=== PATIENT | female | born 1985 | race Caucasian/White ===

== ENCOUNTER 2019-08-10 16:43 | Emergency (ER) | payer BC, SELFPAY ==
--- NOTE | ~2019-08-10 | XR_ITS ---
EXAMINATION: XR shoulder RT min 2V EXAM DATE: 08/10/2019 17:25 INDICATION: Initial encounter following injury, with pain of the right shoulder. Injured 2 weeks ago, persistent pain. TECHNIQUE: The following right shoulder projections obtained: frontal projection with internal rotati on, frontal projection with external rotation, Grashey, and scapular Y view (4+ views). There is no prior study for comparison. FINDINGS: No evidence of right shoulder rotator cuff calcific tendinosis. Unremarkable right glenoh umeral and acromioclavicular joints. There are no acute fractures or dislocations identified. There is no subcutaneous gas. The soft tissue is unremarkable. There are no radiopaque foreign bodies. IMPRESSION: 1. Unremarkable XR shoulder RT min 2V exam. Reviewed, dictated and finalized at location A.
[2019-08-10 16:52] VITALS: BP 142/76; PULSE 75; RESP 14; O2SAT 99
--- NOTE | 2019-08-10 17:01 | ED.UPPEXIN ---
HPI - Extremity Injury (Upper) General Chief Complaint: Extremity Injury, Upper Stated Complaint: right shoulder History of Present Illness HPI narrative: Two and a half weeks ago patient hit her shoulder on a counter when she was bending down and she heard a pop. Patient states the pain is better but her shoulder continues to hurt and she wanted to make sure that she does not have a fracture. Related Data Home Medications Medication Instructions Recorded Confirmed omeprazole 20 mg PO DAILY PRN 08/10/19 08/10/19 Allergies Allergy/AdvReac Type Severity Reaction Status Date / Time No Known Allergies Allergy Verified 08/10/19 17:02 Review of Systems Review of Systems: Narrative: CONSTITUTIONAL: Denies fever, chills, or sweats. EYES: Denies visual changes, redness, or discharge. ENT: Denies rhinorrhea, congestion, sore throat, or otalgia. CARDIOVASCULAR:Denies chest pain, palpitations, or edema. RESPIRATORY: Denies cough or dyspnea. GASTROINTESTINAL: Denies abdominal pain, nausea, vomiting, or diarrhea. GENITOURINARY: Denies dysuria or hematuria. SKIN:[Denies rash or itching. MUSCULOSKELETAL:Denies back pain, joint pain, or myalgia. right shoulder pain NEUROLOGIC: Denies headache, numbness, or weakness. PSYCHIATRIC:Denies anxiety or depression PMFSH Comments At time as signature, I have reviewed and agree with nursing past medical, social, surgical and family history. Please see nursing chart for further information. There is no relevant family history pertinent to the presenting complaint. Exam Narrative: Exam Narrative: GENERAL:Well-appearing, well-nourished, and in no acute distress. HEAD:Normocephalic, atraumatic. EYES: PERRLA and EOMI. ENT: Nares clear, no rhinorrhea or epistaxis. Mucous membranes moist. NECK: Supple. CHEST: Clear to auscultation. No respiratory distress. HEART: Regular rate and rhythm. No murmur heard. Normal peripheral pulses. ABDOMEN: Soft, nontender, nondistended, normal active bowel sounds. EXTREMITIES: decrease range of motion due to pain. No edema. SKIN: Warm, dry, no rash. NEURO: No focal deficits. Alert and oriented x3. Course Course Emergency Course: Patient is aware of diagnosis, understands and agrees to treatment plan. Anticipatory guidance given. Patient agrees to follow-up as directed and is aware of reasons to seek care at the emergency department. Vital Signs Vital signs: Vital Signs Pulse Rate 75 08/10/19 16:52 Respiratory Rate 14 08/10/19 16:52 Blood Pressure 142/76 H 08/10/19 16:52 Pulse Oximetry 99 08/10/19 16:52 Pulse Rate 75 08/10/19 16:52 Respiratory Rate 14 08/10/19 16:52 Blood Pressure 142/76 H 08/10/19 16:52 Pulse Oximetry 99 08/10/19 16:52 MDM - Extremity Injury (Upper) Differential Diagnosis Differential diagnosis: Likely sprain and strain of wrist, fracture of wrist, fracture of hand, dislocation of shoulder and fracture of humerus Discharge Plan Discharge Clinical Impression: Muscle spasm of right shoulder Patient Disposition: Home, Self-Care Condition: Stable Instructions: Antibiotic Form, Muscle Spasm (ED), Shoulder Pain (ED) Additional Instructions: avoid weight bearing until the pain subsides. Ice to the area 20-30 minutes 4-6 times a day Elevate above heart Elastic wrap or orthopedic splint as directed for comfort for the next 5-7 days Tylenol for lesser pain Ibuprofen regularly for the next 2-3 days for the inflammation Follow up with your primary care provider if the condition is not improving within 1 week or sooner if the condition worsens with numbness, tingling, decrease sensation with weakness to seek ER. Prescriptions: New cyclobenzaprine 10 mg tablet 10 mg PO TID PRN (Reason: muscle spasm) Qty: 20 RF: 0 ibuprofen 800 mg tablet 800 mg PO TID PRN (Reason: pain) Qty: 20 RF: 0 No Action omeprazole 20 mg Tablet,Delayed Release (Dr/Ec) 20 mg PO DAILY PRN (Reason: A
== END 2019-08-10 17:47 | disposition home or self-care (01) ==
PROVIDERS: Emergency Provider Nurse Practitioner Family
DX: M62.838 Other muscle spasm (principal)
CPT/HCPCS: 73030; 99213; G0463

== ENCOUNTER 2020-06-08 14:58 | Emergency (ER) | payer OTHER, SELFPAY ==
--- NOTE | ~2020-06-08 | US_ITS ---
EXAMINATION: US OB <=14 wk fetus w TV EXAM DATE: 06/08/2020 16:22 INDICATION: , pelvic pain. Clinical concern for ectopic . TECHNIQUE: Pelvic transabdominal and transvaginal sonogram was performed. There are multiple graysca le and Doppler images available for interpretation. There is no prior study for comparison. FINDINGS: The uterus measures 8.7 x 4.8 x 5.6 cm. There is an intrauterine gestation sac identified, with a small yolk sac. Age by mean sac diameter is 5 weeks 0 days. Cannot identify a pole, patty ot confirm viability at this point. Right adnexa: The ovary measures 2.7 x 1.9 x 2.0 cm and is morphologically normal. Ovarian vascular f low confirmed. Left adnexa: The ovary measures 3.7 x 2.4 x 2.1 cm and is morphologically normal. Ovarian vascular fl ow confirmed. IMPRESSION: 1. Small intrauterine gestation sac. Cannot confirm viability at this time, consider 2 week follow-u p exam. 2. No extrauterine identified. Reviewed, dictated and finalized at location A. ONATOR IMPRESSION: 1. Small intrauterine gestation sac. Cannot confirm viability at this time, co nsider 2 week follow-up exam. 2. No extrauterine identified.
[2020-06-08 15:00] VITALS: BP 127/64; PULSE 100; RESP 18; TEMP 36.5; O2SAT 100
--- NOTE | 2020-06-08 15:20 | ED.GENADULT ---
HPI - General Adult General Chief complaint: Unspecified Stated complaint: wants test Time Seen by Provider: 06/08/20 15:05 Source: patient Mode of arrival: ambulatory Limitations: no limitations History of Present Illness HPI narrative: This is a 34 year old, about 4.5 weeks by LMP that presents to the ER for pelvic cramping since last night. Reports she had a positive test 4 days. Reports last night she noted some right sided pelvic cramping that has been intermittent since. Reports she is unsure when her last period was as she has abnormal periods. They recently moved to the area, so she does not have a OB yet. Denies fever, vomiting, vaginal bleeding, or dysuria. Related Data Home Medications Medication Instructions Recorded Confirmed No Home Medications 06/08/20 06/08/20 Allergies Allergy/AdvReac Type Severity Reaction Status Date / Time No Known Allergies Allergy Verified 06/08/20 15:12 Review of Systems Review of Systems: Narrative: CONSTITUTIONAL: Denies fever GASTROINTESTINAL: Reports pelvic pain. Denies nausea, vomiting GENITOURINARY: Denies dysuria All systems reviewed & are unremarkable except as noted in HPI and below PMFSH Surgical History Surgical History (Updated 06/08/20 @ 15:28 by Alisha Ontiveros PA-C) History of exploratory laparotomy Social History Social History (Updated 06/08/20 @ 15:28 by Alisha Ontiveros PA-C) Smoking status: Former smoker Exam Narrative: Exam Narrative: GENERAL: Well-appearing, well-nourished, and in no acute distress. HEAD: Normocephalic, atraumatic. EYES: EOMI. CHEST: Clear to auscultation. No respiratory distress. No wheezes rales or rhonchi HEART: Regular rate and rhythm. No murmur heard. Normal peripheral pulses. ABDOMEN: Soft, nontender, nondistended, normal active bowel sounds. EXTREMITIES: Normal range of motion. No edema. SKIN: Warm, dry, no rash. NEURO: No focal deficits. Alert and oriented x3. PSYCH: Normal mood and affect PELVIC: Normal external genitalia. Normal-appearing cervix, closed Course Consultations Consultation #1: Spoke with Dr. Thomas about patient and workup who will follow up in clinic. Date: 06/08/20 Time: 18:11 Vital Signs Vital signs: Vital Signs Temperature 97.7 F 06/08/20 15:00 Pulse Rate 100 06/08/20 15:00 Respiratory Rate 18 06/08/20 15:00 Blood Pressure 127/64 06/08/20 15:00 Pulse Oximetry 100 06/08/20 15:00 Temperature 97.7 F 06/08/20 15:00 Pulse Rate 100 06/08/20 15:00 Respiratory Rate 18 06/08/20 15:00 Blood Pressure 127/64 06/08/20 15:00 Pulse Oximetry 100 06/08/20 15:00 Medical Decision Making MDM Narrative Medical decision making narrative: Patient presents the emergency department after a positive test with right sided pelvic cramping, intermittent since last night. She is afebrile and nontoxic-appearing. CBC is with leukocytosis to 24.2. 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 Reports she thinks her white blood cell count is usually around 19. Denies any infectious symptoms and is afebrile in the ED. Metabolic panel and lipase without concerning findings. UA without evidence of infection. Obstetrics ultrasound shows a small uterine gestational sac. No pole is detected at this point. Possibly due to early . No extrauterine . Ovaries appear normal with normal vascular flow. Patient is O+. Spoke with Dr. Thomas about patient and workup who will follow up in clinic. Patient is stable and felt appropriate for further outpatient evaluation. She was given warnings to return to the ER Vital Signs Vital Signs: Vital Signs Temperature 97.7 F 06/08/20 15:00 Pulse Rate 100 06/08/20 15:00 Respiratory Rate 18 06/08/20 15:00 Blood Pressure 127/64 06/08/20 15:00 Pulse Oximetry 100 06/08/20 15:00 Temperature 97.7 F 06/08/20 15:00 Pulse Rate 100 06/08/20 15:00 R
[2020-06-08 15:43] LABS: Basophils Absolute Auto 0.1 K/mm3 (0.0-0.1); Basophils Percent Auto 0.5 % (0.2-1.2); Eosinophils Absolute Auto 0.3 K/mm3 (0-0.3); Eosinophils Percent Auto 1.1 % (0-4.4); Hematocrit 42.8 % (37.0-47.0); Hemoglobin 13.6 g/dL (12.0-15.0); Immature Granulocyte Absolute 0.12 K/mm3 (0.00-0.031); Immature Granulocyte Percent A 0.5 % (0-0.5); Lymphocytes Absolute Auto 6.75 K/mm3 (0.9-3.2); Mean Corpuscular HGB Conc 31.8 g/dl (32-36); Mean Corpuscular Hemoglobin 25.5 pg (26-34); Mean Corpuscular Volume 80.1 fl (80-100); Mean Platelet Volume 9.4 fl (7.4-10.4); Monocytes Absolute Auto 2.3 K/mm3 (0.1-0.6); Monocytes Percent Auto 9.5 % (2.6-8.5); Neutrophils Absolute Auto 14.6 K/mm3 (1.3-6.7); Neutrophils Percent Auto 60.4 % (45.5-73.1); Platelet Count Result 680 k/mm3 (150-375); Red Blood Count 5.34 M/mm3 (4.2-5.4); Red Cell Distribution Width 17.7 % (11.5-14.5); White Blood Count 24.2 K/mm3 (4.5-10.0)
[2020-06-08 15:53] LABS: Atypical Lymphocytes Present; Platelet Estimate Increased (Adequate); Target Cells 1+ (NORMAL)
[2020-06-08 16:53] LABS: Alanine Aminotransferase 19 U/L (4-35); Albumin Level 4.2 g/dL (3.5-5.1); Alkaline Phosphatase 84 U/L (38-126); Anion Gap 8 mmol/L (8-16); Aspartate Amino Transferase 28 U/L (14-36); Bilirubin,Total 0.2 mg/dL (0.2-1.3); Blood Urea Nitrogen 10 mg/dL (7-17); Calcium 8.9 mg/dL (8.4-10.2); Carbon Dioxide 27 mmol/L (22-30); Chloride 106 mmol/L (98-107); Estimated CRCL calculation 105 ml/min; Estimated Glomerular Filt Rate > 60; Glucose 81 mg/dL (65-105); Lipase 67 U/L (23-300); Potassium 3.4 mmol/L (3.4-5.0); Sodium 141 mmol/L (137-145)
[2020-06-08 16:57] LABS: Add Urine Microscopic? YES; Amorphous Sediment Urine Few; Appearance Urine Cloudy (Clear); Bacteria Urine Trace /hpf; Bilirubin Urine Negative (Negative); Blood Urine 1+ (Negative); Color Urine Yellow (Yellow); Glucose Urine UA Negative (Negative); Ketones Urine Negative (Negative); Leukocyte Esterase Ur Negative LEU/UL (Negative); Mucus Urine Few /lpf; Nitrate Urine Negative (Negative); Protein Urine 1+ mg/dL (Negative); Specific Grav Ur 1.019 (1.001-1.035); Squamous Epithelial Cell Urine Many /hpf (Few); WBC Urine 0-3 /hpf
== END 2020-06-08 18:21 | disposition home or self-care (01) ==
PROVIDERS: Physician Assistant; Emergency Provider Emergency Medicine
DX: O26.891 Other specified pregnancy related conditions, first trimester (principal); R10.2 Pelvic and perineal pain; Z87.891 Personal history of nicotine dependence; Z3A.01 Less than 8 weeks gestation of pregnancy
CPT/HCPCS: 36415; 76801; 76817; 80053; 81001; 81025; 83690; 84702; 85025; 85461; 99284

== ENCOUNTER 2020-06-21 15:27 | Outpatient (CLI) | payer OTHER, SELFPAY ==
[2020-06-21 15:55] LABS: Basophils Absolute Auto 0.1 K/mm3 (0.0-0.1); Basophils Percent Auto 0.4 % (0.2-1.2); Eosinophils Absolute Auto 0.3 K/mm3 (0-0.3); Eosinophils Percent Auto 1.1 % (0-4.4); Hematocrit 41.5 % (37.0-47.0); Hemoglobin 13.8 g/dL (12.0-15.0); Immature Granulocyte Percent A 0.4 % (0-0.5); Lymphocytes Absolute Auto 6.39 K/mm3 (0.9-3.2); Lymphocytes Percent Auto 26.6 % (18.3-44.2); Mean Corpuscular HGB Conc 33.3 g/dl (32-36); Mean Corpuscular Hemoglobin 26.5 pg (26-34); Mean Corpuscular Volume 79.8 fl (80-100); Mean Platelet Volume 9.6 fl (7.4-10.4); Monocytes Absolute Auto 1.8 K/mm3 (0.1-0.6); Monocytes Percent Auto 7.6 % (2.6-8.5); Neutrophils Absolute Auto 15.4 K/mm3 (1.3-6.7); Neutrophils Percent Auto 63.9 % (45.5-73.1); Platelet Count Result 630 k/mm3 (150-375); Red Cell Distribution Width 17.5 % (11.5-14.5); White Blood Count 24.1 K/mm3 (4.5-10.0)
[2020-06-21 16:43] LABS: HIV 1/2 Ab P24 Ag Result Negative (Negative)
[2020-06-21 17:06] LABS: Hepatitis B Surface Antigen Negative (Negative)
[2020-06-21 17:22] LABS: Hepatitis C Virus Antibody Reactive (Negative)
[2020-06-23 09:06] LABS: Rapid Plasma Reagin Non-Reactive (NonReactive)
[2020-06-24 17:11] LABS: Hepatitis C RNA, Quant PCR <15 IU/mL
== END 2020-06-21 15:28 | disposition home or self-care (01) ==
LOC: ANHLAB 15:28
PROVIDERS: Visit Provider Obstetrics & Gynecology
DX: Z34.90 Encounter for supervision of normal pregnancy, unspecified, unspecified trimester (principal); Z3A.00 Weeks of gestation of pregnancy not specified
CPT/HCPCS: 36415; 85025; 86592; 86703; 86762; 86803; 86850; 86900; 86901; 87340; 87522; G0432

== ENCOUNTER 2020-06-27 16:05 | Outpatient (CLI) | payer OTHER, SELFPAY ==
--- NOTE | ~2020-06-27 | US_ITS ---
EXAMINATION: US OB <= 14 weeks fetus DATE: 06/27/2020 16:38 INDICATION: Evaluate viability TECHNIQUE: Real-time transabdominal obstetric ultrasound. FINDINGS: Comparison to ultrasound dated 06/08/2020 The uterus measures 8.5 x 5.5 x 5.7 cm. There is an intrauterine gestational sac, with pole lola ntified. The crown rump length measures 1.32 cm. heart tones are identified measuring 165 bpm. Ovaries are not visualized. No free fluid in the pelvis. IMPRESSION: 1. SL IUP with an EGA of 7 weeks, 5 days (EDC by initial ultrasound of 02/08/2021). Reviewed, dictated and finalized at location A. NCE ANALYST IMPRESSION: 1. SL IUP with an EGA of 7 weeks, 5 days (EDC by initial ultrasound of 02/09/20 21).
== END 2020-06-27 16:06 | disposition home or self-care (01) ==
PROVIDERS: Visit Provider Obstetrics & Gynecology
DX: O36.80X0 Pregnancy with inconclusive fetal viability, not applicable or unspecified (principal); Z3A.01 Less than 8 weeks gestation of pregnancy
CPT/HCPCS: 76801

== ENCOUNTER 2020-07-12 09:09 | Observation (INO) | payer OTHER, SELFPAY ==
[2020-07-12] VITALS (23 sets, daily range): BP systolic 113–158; BP diastolic 62–119; PULSE 62–78; RESP 16–20; TEMP 36.2–36.9; O2SAT 98–100; BMI 33.0
--- NOTE | ~2020-07-12 | US_ITS ---
US renal BI 07/12/2020 10:28 Procedure: Realtime transabdominal ultrasound of the kidneys and bladder. Indication: Abdominal pain and Comparison: No prior studies for comparison. Findings: Renal echotexture is normal bilaterally without hydronephrosis, contour deforming mass. The re are bilateral renal stones. There is mild left hydronephrosis. The right kidney measures 12.3 cm a nd left kidney measures 9.9 cm. Bladder within normal limits. Impression: 1: Bilateral nephrolithiasis. 2: Mild right hydronephrosis. Reviewed, dictated and finalized at location B. Impression: 1: Bilateral nephrolithiasis. 2: Mild right hydronephrosis.
--- NOTE | ~2020-07-12 | US_ITS ---
EXAMINATION: US OB <= 14 weeks fetus DATE: 07/12/2020 10:28 INDICATION: Pelvic pain. Left flank pain. First trimester . TECHNIQUE: Real-time pelvic ultrasound utilizing both a transvaginal and transabdominal probe was pe rformed. The interpreting radiologist was not present for the study. COMPARISON: 11/27/2020 FINDINGS: The uterus measures 11.4 x 7.4 x 7.3 cm. There is an intrauterine gestational sac. A yolk sac and [place] pole are identified. The crown rump length measures 3.2 cm, which is concordant within 2 days of provided estimated gestational age of 9 weeks and 6 days and within 5 days of the estimated gestation al age of 9 weeks and 3 days based upon earliest crown-rump length measurement based on ultrasound pe rformed on 06/27/2020. heart motion is identified measuring 165 beats per minute (bpm) by M-mode Doppler. The right ovary measures 2.8 x 1.4 x 1.6 cm. The left ovary measures 2.8 x 2.4 x 2.2 cm. 1.9 cm anech oic cyst in the left ovary. Vascular flow seen at both ovaries on color Doppler. There is no free flu id in the pelvis. IMPRESSION: 1. Single living fetus with heart rate of 165 bpm. 2. [place]-rump length of 3.2 cm which is concordant with both the provided estimated gestational age a s well as estimated gestational age based upon clear crown-rump length measurement performed on 2020. Please correlate with clinical information or earlier ultrasounds for most accurate FRANCOISE. . Reviewed, dictated and finalized at location A. IMPRESSION: 1. Single living fetus with heart rate of 165 bpm. 2. [place]-rump length of 3.2 cm which is concordant with both the provided estim ated gestational age as well as estimated gestational age based upon clear [place]-rump length measurement performed on 06/27/2020. Please correlate with clinica l information or earlier ultrasounds for most accurate FRANCOISE. .
--- NOTE | ~2020-07-12 | US_ITS ---
EXAMINATION: US renal BI DATE: 07/13/2020 08:02 INDICATION: Left hydronephrosis TECHNIQUE: Multiple grayscale and Doppler ultrasound images of the kidneys were obtained. COMPARISON: 07/12/2020 FINDINGS: The right kidney measures 13.1 x 4.3 x 5.2 cm. The left kidney measures 10.2 x 5.2 x 4.4 cm . The kidneys demonstrate normal parenchymal echogenicity. Nonobstructing stones are present in both kidneys. There is very mild left hydronephrosis without change. The bladder is normal. IMPRESSION: 1. Mild left hydronephrosis without change. 2. Bilateral nephrolithiasis. Reviewed, dictated and finalized at location A.
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
[2020-07-12 09:35] LABS: Basophils Absolute Auto 0.1 K/mm3 (0.0-0.1); Basophils Percent Auto 0.3 % (0.2-1.2); Eosinophils Absolute Auto 0.3 K/mm3 (0-0.3); Eosinophils Percent Auto 1.2 % (0-4.4); Hematocrit 42.2 % (37.0-47.0); Hemoglobin 13.9 g/dL (12.0-15.0); Immature Granulocyte Absolute 0.12 K/mm3 (0.00-0.031); Immature Granulocyte Percent A 0.5 % (0-0.5); Lymphocytes Absolute Auto 4.95 K/mm3 (0.9-3.2); Lymphocytes Percent Auto 20.2 % (18.3-44.2); Mean Corpuscular HGB Conc 32.9 g/dl (32-36); Mean Corpuscular Hemoglobin 26.1 pg (26-34); Mean Corpuscular Volume 79.2 fl (80-100); Mean Platelet Volume 9.4 fl (7.4-10.4); Monocytes Absolute Auto 1.7 K/mm3 (0.1-0.6); Monocytes Percent Auto 6.9 % (2.6-8.5); Neutrophils Absolute Auto 17.3 K/mm3 (1.3-6.7); Neutrophils Percent Auto 70.9 % (45.5-73.1); Platelet Count Result 605 k/mm3 (150-375); Red Blood Count 5.33 M/mm3 (4.2-5.4); Red Cell Distribution Width 18.2 % (11.5-14.5); White Blood Count 24.5 K/mm3 (4.5-10.0)
[2020-07-12] MEDS: SODIUM CHLORIDE 0.9% IV 1,000 ML 999 ML IV CONT (09:36)
[2020-07-12 09:48] LABS: Alanine Aminotransferase 19 U/L (4-35); Albumin Level 3.9 g/dL (3.5-5.1); Alkaline Phosphatase 98 U/L (38-126); Anion Gap 6 mmol/L (8-16); Aspartate Amino Transferase 24 U/L (14-36); Bilirubin,Total 0.2 mg/dL (0.2-1.3); Blood Urea Nitrogen 8 mg/dL (7-17); Calcium 8.8 mg/dL (8.4-10.2); Carbon Dioxide 28 mmol/L (22-30); Chloride 104 mmol/L (98-107); Estimated CRCL calculation 135 ml/min; Estimated Glomerular Filt Rate > 60; Glucose 96 mg/dL (65-105); Lipase 62 U/L (23-300); Potassium 3.8 mmol/L (3.4-5.0); Sodium 138 mmol/L (137-145)
[2020-07-12 09:56] LABS: Add Urine Microscopic? YES; Appearance Urine Cloudy (Clear); Bacteria Urine Trace /hpf; Bilirubin Urine Negative (Negative); Blood Urine 2+ (Negative); Color Urine Yellow (Yellow); Glucose Urine UA Negative (Negative); Ketones Urine Negative (Negative); Leukocyte Esterase Ur Trace LEU/UL (Negative); Mucus Urine Rare /lpf; Nitrate Urine Negative (Negative); Protein Urine 2+ mg/dL (Negative); RBC Urine >75 /hpf (0-2); Specific Grav Ur 1.015 (1.001-1.035); Squamous Epithelial Cell Urine Many /hpf (Few); Urobilinogen Urine Negative mg/dL (<2.0)
[2020-07-12 11:14] LABS: Lactic Acid Reflex 0.8 mmol/L (0.7-2.1)
[2020-07-12] MEDS: MORPHINE SULFATE (*CRX) 2 MG/ML INJ IV PUSH (11:49)
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
--- NOTE | 2020-07-12 13:14 | PC.NURSE ---
One set of blood cultures obtained, Dr. Ornelas updated and is agreeable to one set of blood cultures.
--- NOTE | 2020-07-12 14:05 | PC.NURSE ---
This patient, Claudia Ackerman, was admitted to [facility] Surg Room 319-01. Patient/family oriented to hospital policies and general routines including ID bracelet, bed and alarms, visiting hours, pain management, procedures, bathroom and other care routines, personal items, smoking policy, room service/diet, and visiting hours. Information on how to activate the Rapid Response Team has been discussed. Patient/Family are encouraged to report perceived risks to care and to ask questions if they do not understand what they are told or what they should do. PT ADMITTED AT 1245
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
[2020-07-12] MEDS: SODIUM CHLORIDE 0.9% IV 1,000 ML 150 ML IV CONT ×2 (15:46→22:45)
[2020-07-12] MEDS: MORPHINE SULFATE (*CRX) 4 MG/ML INJ 2 MG IV PUSH (19:51)
[2020-07-13] MEDS: MORPHINE SULFATE (*CRX) 4 MG/ML INJ 2 MG IV PUSH ×3 (00:06→12:05)
[2020-07-13 05:24] VITALS: BP 125/60; PULSE 62; RESP 20; TEMP 36.7; O2SAT 100
[2020-07-13] MEDS: SODIUM CHLORIDE 0.9% IV 1,000 ML 150 ML IV CONT (05:46)
[2020-07-13 06:14] LABS: Basophils Absolute Auto 0.1 K/mm3 (0.0-0.1); Basophils Percent Auto 0.3 % (0.2-1.2); Eosinophils Absolute Auto 0.4 K/mm3 (0-0.3); Hematocrit 39.1 % (37.0-47.0); Hemoglobin 12.8 g/dL (12.0-15.0); Immature Granulocyte Absolute 0.08 K/mm3 (0.00-0.031); Immature Granulocyte Percent A 0.4 % (0-0.5); Lymphocytes Absolute Auto 5.49 K/mm3 (0.9-3.2); Mean Corpuscular HGB Conc 32.7 g/dl (32-36); Mean Corpuscular Hemoglobin 25.8 pg (26-34); Mean Corpuscular Volume 78.7 fl (80-100); Mean Platelet Volume 9.4 fl (7.4-10.4); Monocytes Absolute Auto 1.6 K/mm3 (0.1-0.6); Neutrophils Percent Auto 61.3 % (45.5-73.1); Platelet Count Result 557 k/mm3 (150-375); Red Blood Count 4.97 M/mm3 (4.2-5.4); Red Cell Distribution Width 17.7 % (11.5-14.5); White Blood Count 19.6 K/mm3 (4.5-10.0)
[2020-07-13 06:39] LABS: Anion Gap 4 mmol/L (8-16); Blood Urea Nitrogen 6 mg/dL (7-17); Calcium 8.1 mg/dL (8.4-10.2); Carbon Dioxide 22 mmol/L (22-30); Chloride 111 mmol/L (98-107); Estimated CRCL calculation 159 ml/min; Estimated Glomerular Filt Rate > 60; Glucose 96 mg/dL (65-105); Potassium 3.8 mmol/L (3.4-5.0); Sodium 137 mmol/L (137-145)
[2020-07-13 08:00] VITALS: PULSE 62; RESP 20; O2SAT 99
[2020-07-13 09:31] VITALS: PULSE 62; O2SAT 99
--- NOTE | 2020-07-13 10:51 | WPDUROPN2 ---
Progress Note: A&P Assessment and Plan (1) Hydronephrosis, left: Code(s): N13.30 - Unspecified hydronephrosis Status: Acute Assessment and Plan: No significant ongoing flank/abdominal pain. Repeat renal u/s this morning: suggests no significant left ureteral obstruction - scant left hydronephrosis persists - bilateral uretal jets noted - normal/symmetrical resitive indices All above, not definitive, but llooks encouraging. Discussed with pt. at [facility]. Currently, would not recommend any intervention (ie. ureteroscopy/stent placement). I'm comfortable with observation as outpatient if she continues to feel well. Subjective Subjective Date/Time Seen: 07/13/20 10:51 Mild left flank pain until 0200 this morning - better now. Currently with slight, atypical right flank pain. Review of Systems Cardiovascular: Cardiovascular: Denies chest pain, Denies lightheadedness, Denies palpitations and Denies dyspnea Respiratory: Respiratory: Denies dyspnea Gastrointestinal: Gastrointestinal: Denies diarrhea, Denies nausea and Denies vomiting Genitourinary: Genitourinary: Denies hematuria and Denies dysuria Endocrine: Endocrine: Denies palpitations Exam Const: General: no acute distress Resp: Effort & Inspection: normal respiratory effort GI: Inspection: non-distended GI Palp: No abdominal tenderness and No Guarding due to palpation present (GI) Auscultation: normal bowel sounds Objective Data Vital Signs Vital Signs: Vital Signs - 24 hr 07/12/20 10:52 07/12/20 10:53 07/12/20 11:00 Temperature Pulse Rate Respiratory Rate Blood Pressure 127/85 Pulse Oximetry 100 100 100 07/12/20 11:01 07/12/20 11:15 07/12/20 11:21 Temperature Pulse Rate Respiratory Rate Blood Pressure 124/65 158/119 H Pulse Oximetry 100 100 100 07/12/20 11:22 07/12/20 11:48 07/12/20 11:50 Temperature Pulse Rate Respiratory Rate Blood Pressure 128/76 Pulse Oximetry 100 100 100 07/12/20 12:00 07/12/20 12:01 07/12/20 12:15 Temperature Pulse Rate Respiratory Rate Blood Pressure 121/74 Pulse Oximetry 100 100 100 07/12/20 12:30 07/12/20 12:31 07/12/20 12:45 Temperature Pulse Rate Respiratory Rate Blood Pressure 135/68 Pulse Oximetry 100 100 100 07/12/20 12:46 07/12/20 13:00 07/12/20 13:01 Temperature Pulse Rate Respiratory Rate Blood Pressure 131/80 132/71 Pulse Oximetry 100 100 100 07/12/20 13:37 07/12/20 14:00 07/12/20 20:00 Temperature 98.4 F Pulse Rate 78 71 62 Respiratory Rate 16 16 20 Blood Pressure 113/69 Pulse Oximetry 100 100 100 07/12/20 21:30 07/13/20 05:24 07/13/20 08:00 Temperature 97.2 F L 98.1 F Pulse Rate 62 62 62 Respiratory Rate 20 20 20 Blood Pressure 116/62 125/60 Pulse Oximetry 100 100 99 07/13/20 09:31 Temperature Pulse Rate 62 Respiratory Rate Blood Pressure Pulse Oximetry 99 Intake/Output Intake/Output: Intake & Output 07/10/20 07/11/20 07/12/20 07/13/20 23:59 23:59 23:59 23:59 Intake Total 2840 2350 Output Total 600 1800 Balance 2240 550 Meds/Results Medications: Active Medications Generic Name Dose Route Start Last Admin Trade Name Freq PRN Reason Stop Dose Admin Ceftriaxone Sodium/Dextrose 1 gm in 50 mls @ 100 mls/hr 07/13/20 09:00 07/13/20 08:17 Rocephin 1 Gm/D5w 50 Ml IVPB 100 mls/hr Q24H VERNA Administration Acetaminophen 1,000 mg in 100 mls @ 400 mls/hr 07/12/20 11:28 07/13/20 06:00 Ofirmev 1,000 Mg Ivpb IVPB 07/13/20 11:29 Infused Q6H PRN Infusion Mild Pain (1-3) or Fever Sodium Chloride 1,000 mls @ 150 mls/hr 07/12/20 11:30 07/13/20 05:46 Normal Saline Iv IV CONT 150 mls/hr .Q6H40M VERNA Administration Morphine Sulfate 2 mg 07/12/20 11:28 07/13/20 08:16 Morphine Sulfate (*Crx) 4 Mg/Ml Inj IV PUSH 2 mg Q2H PRN Administration Pain Rated 7-10 Ondansetron HCl 4 mg 07/12/20 15:17
--- NOTE | 2020-07-13 11:38 | PM.OBPNVD ---
OB - PN: Subj Subjective Date/time seen: 07/13/20 11:38 She is feeling well in general. She had one episode of severe left flan pain wrapping around to LLQ early this am. Morphine did help. She is tolerating regular diet. Occasional nausea. No emesis. No urinary complaints or vaginal bleeding. No fever OB - PN: Obj Data Labs CBC & Chem 7: 07/13/20 06:02 07/13/20 06:02 Labs: Laboratory Results - last 24 hr 07/13/20 07/13/20 06:02 06:02 WBC 19.6 H RBC 4.97 Hgb 12.8 Hct 39.1 MCV 78.7 L MCH 25.8 L MCHC 32.7 RDW 17.7 H Plt Count 557 H MPV 9.4 Immature Gran % (Auto) 0.4 Neut % (Auto) 61.3 Lymph % (Auto) 28.0 [place] % (Auto) 8.0 Eos % (Auto) 2.0 Baso % (Auto) 0.3 Lymph # (Auto) 5.49 H [place] # (Auto) 1.6 H Eos # (Auto) 0.4 H Baso # (Auto) 0.1 Abs Immat Gran (auto) 0.08 H Absolute Neuts (auto) 12.0 H Absolute Nucleated RBC 0.0 Nucleated RBC % 0.0 Sodium 137 Potassium 3.8 Chloride 111 H Carbon Dioxide 22 Anion Gap 4 L BUN 6 L Creatinine 0.50 L Estim Creat Clear Calc 159 Estimated GFR > 60 Glucose 96 Calcium 8.1 L Imaging Radiologist's impression: Impressions Renal Ultrasound 07/13/20 10:21 IMPRESSION: 1. Mild left hydronephrosis without change. 2. Bilateral nephrolithiasis. OB - PN A/P Assessment and Plan (1) Left nephrolithiasis: Code(s): N20.0 - Calculus of kidney Status: Acute Assessment and Plan: Continue hydration (po at home), pain and nausea control prn. No urgent procedures needed per urology. Discharge home and keep follow up as scheduled with me for OB care 07/22 (2) Hydronephrosis, left: Code(s): N13.30 - Unspecified hydronephrosis Status: Acute Assessment and Plan: No change since yesterday, mild on left side (3) UTI (urinary tract infection): Code(s): N39.0 - Urinary tract infection, site not specified Status: Acute Assessment and Plan: Urine culture result not available yet, so discharge home with po cephalexin. Will change abx if needed once urine culture available (4) : Code(s): Z34.90 - Encounter for supervision of normal , unspecified, unspecified trimester Status: Acute Assessment and Plan: Viable intrauterine . Continue routine care Time Spent With Patient Time: Total time spent is greater than 50% in coordination of care (as documented) at patient's floor/unit and/or counseling patient: Review of Systems Review of Systems: All systems reviewed & are unremarkable except as noted in HPI and below Exam Const: General: no acute distress, alert and awake Resp: Auscultation: clear to auscultation bilaterally Cardio: Rate: regular rate Rhythm: regular rhythm GI: Inspection: non-distended GI Palp: Yes Soft to palpation, Yes Tenderness to palpation present (GI) (mild LLQ), No Guarding due to palpation present (GI) and No Rebound tenderness present : General: Yes CVA tenderness on the left Extrem: General: no pedal edema and no calf tenderness Psych: Mental Status: mental status grossly normal
--- NOTE | 2020-07-13 11:44 | PM.DS ---
DS: Admitting Diagnosis Admitting Diagnosis Admitting Diagnosis: Nephrolithiasis and hydronephrosis in 1st trimester DS: Summary Hospital Course Hospital Course: 35-year-old G1 at approximately 9 weeks gestation came in through the emergency room on July 12 with complaint of left flank pain wrapping around to her left lower quadrant. She had ultrasound and lab work done in the emergency room. She was admitted for 23 hour observation on July 12 for bilateral nephrolithiasis left hydronephrosis and urinary tract infection. She did have a Ob ultrasound showing a viable intrauterine . She was admitted for pain control, antibiotics, and observation. She had her renal ultrasound repeated on July 13 which still showed bilateral nephrolithiasis and mild left hydronephrosis with no change since July 12. She only had 1 episode of severe pain during hospitalization. Morphine did control that pain. She has occasional nausea but no emesis. So she does feel comfortable with going home for p.o. hydration p.o. medications for control of pain and nausea if needed, and continued oral antibiotics. Her urine culture result is not available yet. Once her urine culture result is available, her antibiotics will be changed if needed based on that result. She does have an appointment on July 22 for normal obstetric care. She was advised to keep that appointment as scheduled. She is also aware to call or return to the emergency room for severe pain, persistent nausea and vomiting, or any other concerns. She did have urology consultation while in hospital. Urologist says she does not need any urgent intervention due to nephrolithiasis. Time Spent with Patient Time attestation: Total time spent providing and/or coordinating discharge services: DS: Data Data Completed and Pending Labs on day of discharge: Labs from last 24 hours 07/13/20 07/13/20 06:02 06:02 WBC 19.6 H RBC 4.97 Hgb 12.8 Hct 39.1 MCV 78.7 L MCH 25.8 L MCHC 32.7 RDW 17.7 H Plt Count 557 H MPV 9.4 Immature Gran % (Auto) 0.4 Neut % (Auto) 61.3 Lymph % (Auto) 28.0 [place] % (Auto) 8.0 Eos % (Auto) 2.0 Baso % (Auto) 0.3 Lymph # (Auto) 5.49 H [place] # (Auto) 1.6 H Eos # (Auto) 0.4 H Baso # (Auto) 0.1 Abs Immat Gran (auto) 0.08 H Absolute Neuts (auto) 12.0 H Absolute Nucleated RBC 0.0 Nucleated RBC % 0.0 Sodium 137 Potassium 3.8 Chloride 111 H Carbon Dioxide 22 Anion Gap 4 L BUN 6 L Creatinine 0.50 L Estim Creat Clear Calc 159 Estimated GFR > 60 Glucose 96 Calcium 8.1 L Preliminary micro results at discharge 07/12/20 10:52 Blood Culture - Preliminary Blood Discharge Plan Discharge Attending physician on discharge: Karla Perez Consulting providers: José Miguel Maldonado Discharging Clinician: Karla Perez Patient Disposition: Home, Self-Care Activity: as tolerated Diet: as tolerated Patient Instructions: Antibiotic Form, Pain Management (GEN) Stand Alone Forms: General Discharge Information Follow-up/Referrals: Karla Perez MD [Physician] - 2 Weeks Discharge Medications: New hydrocodone-acetaminophen 5-325 mg tablet 1 tablet PO Q4H PRN (Reason: pain) Qty: 30 RF: 0 cephalexin 500 mg capsule 500 mg PO Q8H Qty: 21 RF: 0 ondansetron 4 mg tablet,disintegrating 4 mg PO Q6H PRN (Reason: nausea and vomiting) Qty: 30 RF: 0 Continued DHA 200 mg capsule 200 mg PO BID RF: 0 Date of admission: 07/12/20 11:28 Primary Care Provider: PHYSICIAN,WEIGHT ENGINEER Admitting Provider: Karla Perez Attending physician on admission: Karla Perez Condition: Stable
== END 2020-07-13 13:45 | disposition home or self-care (01) ==
LOC: ANHED 11:35 → ANH3MEDSUR 11:40
PROVIDERS: Admitting Provider Obstetrics & Gynecology; Emergency Provider Emergency Medicine; PCP Physician Assistant; Visit Provider Obstetrics & Gynecology
DX: O26.831 Pregnancy related renal disease, first trimester (principal); N39.0 Urinary tract infection, site not specified; N13.39 Other hydronephrosis; N20.0 Calculus of kidney; N28.89 Other specified disorders of kidney and ureter; R10.32 Left lower quadrant pain; Z87.891 Personal history of nicotine dependence; Z3A.09 9 weeks gestation of pregnancy
CPT/HCPCS: 36415; 76775; 76801; 80048; 80053; 81001; 83605; 83690; 85025; 87040; 87086; 87088; 96361; 96365; 96367; 96374; 96375; 96376; 99285; G0378; J0131; J0696; J2270; J7030

== ENCOUNTER 2020-09-17 15:23 | Outpatient (CLI) | payer BC, SELFPAY ==
--- NOTE | ~2020-09-17 | US_ITS ---
EXAMINATION: US OB /maternal detail EXAM DATE: 09/17/2020 16:18 INDICATION: anatomy. 2nd trimester. TECHNIQUE: Pelvic obstetrical transabdominal sonogram was performed by a technologist. There are mu ltiple grayscale and Doppler images available for interpretation. Comparison is made to prior examina tion from 07/12/2020. FINDINGS: There is a single fetus identified in vertex presentation with a heart rate of 147 beats pe r minute. The placenta is located in the fundal position. There is no sonographic evidence of retrop lacental hemorrhage identified. BIOMETRIC DATA: Biparietal diameter (BPD): 4.7 cm ----------------> 20 weeks 2 days. Head circumference (HC): 17.0 cm ----------------> 19 weeks 4 days. Abdominal circumference (AC): 13.8 cm ----------> 19 weeks 2 days. Femur length (FL): 3.0 cm --------------------------> 19 weeks 2 days. These measurements are concordant. HC/AC ratio is 1.23 (The 5th -- 95th percentile range is 1.08-1.26. Estimated weight is 288 g +/- 43 g. This is the 33rd percentile when the currently reported cl inical gestation age 19 weeks 4 days, clinical estimated date of delivery (FRANCOISE-OPE) 02/07 is used. [place] estimated gestational age based on measurements from this exam is also 19 weeks 4 days, with an e stimated date of delivery (FRANCOISE-AUA) 02/07. ANATOMIC SURVEY: The following anatomy is identified and is sonographically normal in appearance: Cerebral ventricles Cerebellum Cisterna magna Nuchal fold CTL-spine Four-chamber heart Diaphragm Stomach Kidneys Bladder Three-vessel cord Cord insertion IMPRESSION: 1. Single fetus in vertex presentation with heart rate 147 beats per minute. 2. Estimated weight of 288 grams, 33rd percentile using the currently reported clinical gestat ion age of 19 weeks 4 days, FRANCOISE(OPE) 02/07. 3. Normal anatomic survey. Reviewed, dictated and finalized at location B. IMPRESSION: 1. Single fetus in vertex presentation with heart rate 147 beats per minute. 2. Estimated weight of 288 grams, 33rd percentile using the currently re ported clinical gestation age of 19 weeks 4 days, FRANCOISE(OPE) 02/07. 3. Normal anatomic survey.
== END 2020-09-17 15:24 | disposition home or self-care (01) ==
PROVIDERS: PCP Obstetrics & Gynecology; Visit Provider Obstetrics & Gynecology
DX: Z36.3 Encounter for antenatal screening for malformations (principal); Z3A.00 Weeks of gestation of pregnancy not specified
CPT/HCPCS: 76805

== ENCOUNTER 2020-11-11 11:09 | Outpatient (CLI) | payer BC, SELFPAY ==
[2020-11-11 12:40] LABS: Hematocrit 35.6 % (37.0-47.0); Hemoglobin 11.6 g/dL (12.0-15.0); Mean Corpuscular HGB Conc 32.6 g/dl (32-36); Mean Corpuscular Volume 82.8 fl (80-100); Mean Platelet Volume 10.3 fl (7.4-10.4); Platelet Count Result 597 k/mm3 (150-375); Red Cell Distribution Width 15.9 % (11.5-14.5)
[2020-11-11 12:47] LABS: Glucose 1 Hour PP 50gm Dose 104 mg/dL
[2020-11-11 13:26] LABS: Band Neutrophils Percent 6 % (0-6); Eosinophils Absolute Manual 0.87 K/mm3 (0.02-0.5); Eosinophils Percent Manual 3 % (0-4); Monocytes Absolute Manual 0.29 K/mm3 (0.1-0.90); Monocytes Percent Manual 1 % (3-9); Neutrophils Absolute Manual 22.04 K/mm3 (1.7-7.2); Neutrophils Percent Manual 70 % (46-73); Total Cells Counted 100
[2020-11-11 13:27] LABS: Anisocytosis 1+ (NORMAL); Large Platelets Present; Platelet Estimate Increased (Adequate)
[2020-11-11 13:28] LABS: Atypical Lymphocytes Present
[2020-11-14 15:19] LABS: HIV 1 2 Ag Ab 4th Gen w Rflxs Non-reactive (Non-reactive)
== END 2020-11-11 11:10 | disposition home or self-care (01) ==
PROVIDERS: PCP Obstetrics & Gynecology; Visit Provider Obstetrics & Gynecology
DX: Z34.90 Encounter for supervision of normal pregnancy, unspecified, unspecified trimester (principal); Z3A.00 Weeks of gestation of pregnancy not specified
CPT/HCPCS: 36415; 82947; 85025; 87389

== ENCOUNTER 2020-12-31 22:10 | Observation (INO) | payer BC, SELFPAY ==
[2020-12-31 23:03] VITALS: BMI 36.9
--- NOTE | 2020-12-31 23:04 | LDADM ---
This patient, Claudia Ackerman, was admitted to [facility] on 12/31/20 at 22:10. Plans for labor, pain management and were discussed with patient. Patient/family oriented to hospital policies and general routines including ID bracelet, bed and alarms, visiting hours, pain management, procedures, bathroom and other care routines, personal items, smoking policy, room service/diet and guest tray routines, infant security routines, and visiting hours. Patient/Family are encouraged to report perceived risks to care and to ask questions if they do not understand what they are told or what they should do. See OBIX for further documentation.
--- NOTE | 2021-01-24 11:17 | PM.OBTRLD ---
OB - Triage/Final Diagnosis Visit Information Comments/Additional reasons for admission: I have assessed the risk for this patient, Claudia Ackerman, and determined that she would benefit from observation care. Final Diagnosis (1) Upper abdominal mass: Code(s): R19.09 - Other intra-abdominal and pelvic swelling, mass and lump Status: Acute
== END 2020-12-31 23:25 | disposition other institution (70) ==
PROVIDERS: Admitting Provider Student in an Organized Health Care Education/Training Program; Visit Provider Student in an Organized Health Care Education/Training Program
DX: O26.899 Other specified pregnancy related conditions, unspecified trimester (principal); R19.09 Other intra-abdominal and pelvic swelling, mass and lump; Z3A.00 Weeks of gestation of pregnancy not specified
CPT/HCPCS: G0378; G0379

== ENCOUNTER 2020-12-31 23:30 | Emergency (ER) | payer BC, SELFPAY ==
[2020-12-31 23:38] VITALS: BP 143/70; PULSE 84; RESP 18; TEMP 36.8; O2SAT 100
[2021-01-01 00:03] LABS: Basophils Absolute Auto 0.1 K/mm3 (0.0-0.1); Basophils Percent Auto 0.3 % (0.2-1.2); Eosinophils Absolute Auto 0.3 K/mm3 (0-0.3); Hematocrit 32.2 % (37.0-47.0); Hemoglobin 10.2 g/dL (12.0-15.0); Immature Granulocyte Absolute 0.14 K/mm3 (0.00-0.031); Immature Granulocyte Percent A 0.6 % (0-0.5); Lymphocytes Absolute Auto 6.05 K/mm3 (0.9-3.2); Mean Corpuscular HGB Conc 31.7 g/dl (32-36); Mean Corpuscular Hemoglobin 25.2 pg (26-34); Mean Corpuscular Volume 79.5 fl (80-100); Mean Platelet Volume 10.6 fl (7.4-10.4); Monocytes Percent Auto 8.1 % (2.6-8.5); Neutrophils Absolute Auto 15.8 K/mm3 (1.3-6.7); Nucleated Red Blood Cells Perc 0.2 % (0.0-0.2); Platelet Count Result 555 k/mm3 (150-375); Red Blood Count 4.05 M/mm3 (4.2-5.4); Red Cell Distribution Width 14.9 % (11.5-14.5); White Blood Count 24.2 K/mm3 (4.5-10.0)
[2021-01-01 00:12] LABS: Alanine Aminotransferase 22 U/L (4-35); Albumin Level 3.4 g/dL (3.5-5.1); Alkaline Phosphatase 219 U/L (38-126); Anion Gap 9 mmol/L (8-16); Aspartate Amino Transferase 25 U/L (14-36); Bilirubin,Total 0.2 mg/dL (0.2-1.3); Blood Urea Nitrogen 8 mg/dL (7-17); Calcium 8.5 mg/dL (8.4-10.2); Carbon Dioxide 20 mmol/L (22-30); Chloride 109 mmol/L (98-107); Estimated CRCL calculation 169 ml/min; Estimated Glomerular Filt Rate > 60; Glucose 103 mg/dL (65-110); Lipase 103 U/L (23-300); Potassium 3.6 mmol/L (3.4-5.0); Sodium 138 mmol/L (137-145)
[2021-01-01 00:13] LABS: Add Urine Microscopic? YES; Appearance Urine Clear (Clear); Bacteria Urine Trace /hpf; Bilirubin Urine Negative (Negative); Blood Urine 1+ (Negative); Color Urine Straw (Yellow); Glucose Urine UA Negative (Negative); Ketones Urine Negative (Negative); Leukocyte Esterase Ur Negative LEU/UL (Negative); Nitrate Urine Negative (Negative); Protein Urine Negative (Negative); Specific Grav Ur 1.006 (1.001-1.035); Squamous Epithelial Cell Urine Few /hpf (Few); Urobilinogen Urine Negative mg/dL (<2.0); WBC Urine 0-3 /hpf
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
[2021-01-01 01:27] VITALS: BP 133/72; PULSE 88; RESP 15; O2SAT 98
[2021-01-01 01:56] LABS: Lactic Acid Reflex 0.7 mmol/L (0.7-2.1)
[2021-01-01 02:35] VITALS: BP 140/90; PULSE 80; RESP 17; O2SAT 99
== END 2021-01-01 02:37 | disposition home or self-care (01) ==
PROVIDERS: Emergency Medicine; Emergency Provider Emergency Medicine
DX: O26.893 Other specified pregnancy related conditions, third trimester (principal); R19.00 Intra-abdominal and pelvic swelling, mass and lump, unspecified site; Z3A.35 35 weeks gestation of pregnancy; Z87.891 Personal history of nicotine dependence
CPT/HCPCS: 36415; 80053; 81001; 83605; 83690; 85025; 87040; 99283; G0378; G0379

== ENCOUNTER 2021-01-19 18:00 | Inpatient (IN) | payer BC, SELFPAY ==
[2021-01-19] VITALS (11 sets, daily range): BP systolic 127–151; BP diastolic 74–91; PULSE 72–85; TEMP 36.6–37.5; BMI 38.3
--- NOTE | 2021-01-19 18:31 | LDADM ---
This patient, Claudia Ackerman, was admitted to Labor/Delivery/Recovery 107 on 01/19/21 at 18:00. Plans for labor, pain management and were discussed with patient. Patient/family oriented to hospital policies and general routines including ID bracelet, bed and alarms, visiting hours, pain management, procedures, bathroom and other care routines, personal items, smoking policy, room service/diet and guest tray routines, security routines, and visiting hours. Patient/Family are encouraged to report perceived risks to care and to ask questions if they do not understand what they are told or what they should do. See OBIX for further documentation.
[2021-01-19 19:19] LABS: Basophils Absolute Auto 0.1 K/mm3 (0.0-0.1); Basophils Percent Auto 0.3 % (0.2-1.2); Eosinophils Absolute Auto 0.1 K/mm3 (0-0.3); Eosinophils Percent Auto 0.6 % (0-4.4); Hematocrit 31.9 % (37.0-47.0); Immature Granulocyte Absolute 0.13 K/mm3 (0.00-0.031); Immature Granulocyte Percent A 0.6 % (0-0.5); Lymphocytes Absolute Auto 5.16 K/mm3 (0.9-3.2); Lymphocytes Percent Auto 23.4 % (18.3-44.2); Mean Corpuscular HGB Conc 31.3 g/dl (32-36); Mean Corpuscular Hemoglobin 23.8 pg (26-34); Mean Platelet Volume 10.7 fl (7.4-10.4); Monocytes Absolute Auto 1.5 K/mm3 (0.1-0.6); Monocytes Percent Auto 6.9 % (2.6-8.5); Neutrophils Absolute Auto 15.1 K/mm3 (1.3-6.7); Neutrophils Percent Auto 68.2 % (45.5-73.1); Nucleated Red Blood Cells Absolute Auto 0.1 K/mm3 (0.0-0.012); Nucleated Red Blood Cells Perc 0.3 % (0.0-0.2); Platelet Count Result 569 k/mm3 (150-375); Red Cell Distribution Width 15.5 % (11.5-14.5); White Blood Count 22.1 K/mm3 (4.5-10.0)
[2021-01-19 19:37] LABS: Alanine Aminotransferase 19 U/L (4-35); Albumin Level 3.7 g/dL (3.5-5.1); Alkaline Phosphatase 267 U/L (38-126); Anion Gap 7 mmol/L (8-16); Aspartate Amino Transferase 25 U/L (14-36); Bilirubin,Total 0.3 mg/dL (0.2-1.3); Blood Urea Nitrogen 9 mg/dL (7-17); Calcium 9.3 mg/dL (8.4-10.2); Carbon Dioxide 21 mmol/L (22-30); Chloride 109 mmol/L (98-107); Estimated CRCL calculation 146 ml/min; Estimated Glomerular Filt Rate > 60; Glucose 78 mg/dL (65-110); Potassium 3.5 mmol/L (3.4-5.0); Sodium 137 mmol/L (137-145); Uric Acid 6.8 mg/dL (2.5-7.5)
[2021-01-19] MEDS: LACTATED RINGERS 1,000 ML 125 ML IV CONT (19:39)
[2021-01-19] MEDS: OXYTOCIN 30 UNITS/NS 500 ML 30 UNITS/500 ML BAG 6 UNITS IV CONT (19:40)
[2021-01-19 19:48] LABS: Platelet Estimate Increased (Adequate)
[2021-01-19 19:49] LABS: Target Cells 1+ (NORMAL)
[2021-01-19 19:50] LABS: Atypical Lymphocytes Present
[2021-01-19] MEDS: fentaNYL CITRATE INJ (*CRX) 100 MCG/2 ML VIAL 50 MCG IV PUSH (22:51)
[2021-01-20] VITALS (203 sets, daily range): BP systolic 68–161; BP diastolic 42–141; PULSE 58–131; RESP 16; TEMP 36.5–37.1; O2SAT 81–100
[2021-01-20] MEDS: fentaNYL CITRATE INJ (*CRX) 100 MCG/2 ML VIAL 50 MCG IV PUSH (00:49)
[2021-01-20] MEDS: fentaNYL CITRATE INJ (*CRX) 100 MCG/2 ML VIAL IV PUSH ×4 (02:26→08:10)
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
[2021-01-20] MEDS: LACTATED RINGERS 1,000 ML 125 ML IV CONT (08:11)
--- NOTE | 2021-01-20 08:14 | WPDOBADMIT ---
Obstetrics - Admit Note Admission Note: record reviewed. No pertinent additions to the history and/or any subsequent changes in the physical findings that are not consistent with the expected course of the were found. Additions to the history and/or subsequent changes in the physical findings follow. Cervix 4/50/-2. AROM with clear fluid. IUPC placed easily. GBS negative. Continue pitocin. FHT category II
--- NOTE | 2021-01-20 09:21 | WPDANESEPPF ---
Anes - Initial Pre Proc Eval Date/Time: 01/20/21 09:21 Surgeon: Karla Perez MD Pre Op Diagnosis: Induction of Labor Patient Data Age: 35 Gender: F Height: 1.7 m Weight: 111 kg Last Vital Signs Temp 36.9 C 01/20/21 05:30 Pulse 90 01/20/21 09:16 BP 116/66 01/20/21 09:16 Pulse Ox 100 01/20/21 09:18 Allergies Allergy/AdvReac Type Severity Reaction Status Date / Time No Known Allergies Allergy Verified 01/17/21 15:25 Home Medications Medication Instructions Recorded Confirmed Type prenat.vits,sharron,xbx-[id number] 1 tablet PO DAILY 01/15/21 01/19/21 History [ #2] ranitidine HCl [Zantac Maximum 150 mg DAILY PRN 01/15/21 01/19/21 History Strength] hydrocodone-acetaminophen 1 tablet PO Q6H PRN 01/19/21 01/19/21 History Laboratory Tests 01/19/21 01/19/21 01/19/21 18:49 18:49 18:49 WBC 22.1 K/mm3 H K/mm3 (4.5-10.0) RBC 4.20 M/mm3 M/mm3 (4.2-5.4) Hgb 10.0 g/dL L g/dL (12.0-15.0) Hct 31.9 % L % (37.0-47.0) MCV 76.0 fl L fl (80-100) MCH 23.8 pg L pg (26-34) MCHC 31.3 g/dl L g/dl (32-36) RDW 15.5 % H % (11.5-14.5) Plt Count 569 k/mm3 H k/mm3 (150-375) MPV 10.7 fl H fl (7.4-10.4) Immature Gran % (Auto) 0.6 % H % (0-0.5) Neut % (Auto) 68.2 % % (45.5-73.1) Lymph % (Auto) 23.4 % % (18.3-44.2) Reagan % (Auto) 6.9 % % (2.6-8.5) Eos % (Auto) 0.6 % % (0-4.4) Baso % (Auto) 0.3 % % (0.2-1.2) Lymph # (Auto) 5.16 K/mm3 H K/mm3 (0.9-3.2) Reagan # (Auto) 1.5 K/mm3 H K/mm3 (0.1-0.6) Eos # (Auto) 0.1 K/mm3 K/mm3 (0-0.3) Baso # (Auto) 0.1 K/mm3 K/mm3 (0.0-0.1) Abs Immat Gran (auto) 0.13 K/mm3 H K/mm3 (0.00-0.031) Absolute Neuts (auto) 15.1 K/mm3 H K/mm3 (1.3-6.7) Absolute Nucleated RBC 0.1 K/mm3 H K/mm3 (0.0-0.012) Nucleated RBC % 0.3 % H % (0.0-0.2) Atypical Lymphocytes Present Platelet Estimate Increased (Adequate) Target Cells 1+ (NORMAL) Sodium Potassium Chloride Carbon Dioxide Anion Gap BUN Creatinine Estim Creat Clear Calc Estimated GFR Glucose Uric Acid Calcium Total Bilirubin AST ALT Alkaline Phosphatase Total Protein Albumin Urine Opiates Screen Urine Methadone Screen Ur Barbiturates Screen Ur Phencyclidine Scrn Ur Amphetamine Screen U Benzodiazepines Scrn Urine Cocaine Screen U Cannabinoids Screen RPR Pending Blood Type O Positive Antibody Screen Negative 01/19/21 01/20/21 18:49 08:53 WBC RBC Hgb Hct MCV MCH MCHC RDW Plt Count MPV Immature Gran % (Auto) Neut % (Auto) Lymph % (Auto) Reagan % (Auto) Eos % (Auto) Baso % (Auto) Lymph # (Auto) Reagan # (Auto) Eos # (Auto) Baso # (Auto) Abs Immat Gran (auto) Absolute Neuts (auto) Absolute Nucleated RBC Nucleated RBC % Atypical Lymphocytes Platelet Estimate Target Cells Sodium 137 mmol/L mmol/L (137-145) Potassium 3.5 mmol/L mmol/L (3.4-5.0) Chloride 109 mmol/L H mmol/L (98-107) Carbon Dioxide 21 mmol/L L mmol/L (22-30) Anion Gap 7 mmol/L L mmol/L (8-16) BUN 9 mg/dL mg/dL (7-17) Creatinine 0.60 mg/dL L mg/dL (0.7-1.0) Estim Creat Clear Calc 146 ml/min ml/min
[2021-01-20 09:35] LABS: Amphetamine Screen Urine Negative (Negative); Barbiturate Screen Urine Negative (Negative); Benzodiazepines Screen Urine Negative (Negative); Cannabinoid Screen Urine Positive (Negative); Cocaine Screen Urine Negative (Negative); Methadone Screen Urine Negative (Negative); Opiate Screen Urine Negative (Negative); Phencyclidine Screen Urine Negative (Negative)
[2021-01-20 10:40] LABS: Rapid Plasma Reagin Non-Reactive (NonReactive)
[2021-01-20] MEDS: FAMOTIDINE 20 MG TABLET (13:10)
[2021-01-20] MEDS: OXYTOCIN 30 UNITS/NS 500 ML 30 UNITS/500 ML BAG 6 UNITS IV CONT (14:23)
[2021-01-20] MEDS: ONDANSETRON INJ 4 MG/2 ML VIAL IV PUSH (16:10)
--- NOTE | 2021-01-20 20:23 | PM.OBPRVD ---
OB - Delivery Note Procedure Delivery date: 01/20/21 Procedure: events: Induced HTN Induction method: per pitocin protocol Delivery augmentation: rupture of membranes Delivery monitor: external FHT and internal uterine Route of delivery: Laceration Description: Periurethral (right) and Perineal - 2nd Degree Delivery repair: vicryl (3-0) Specimen: Yes Quantitative Blood Loss (ml): 224 Anesthesia type: Epidural Disposition: floor Tonasket Baby Date of : 01/20/21 Time of : 20:00 Weeks of gestation at delivery: 37 gender: Female Weight (pounds): 6 Weight (ounces): 6 presentation: vertex position: Right Occiput Posterior Placenta delivery description: Spontaneous cord vessel description: 3 Vessels and Clamped/Cut score one minute: 9 score five minutes: 9
[2021-01-20] MEDS: OXYTOCIN 30 UNITS/NS 500 ML 30 UNITS/500 ML BAG 125 UNITS IV CONT (20:34)
[2021-01-20] MEDS: IBUPROFEN 600 MG TABLET PO (21:27)
[2021-01-20] MEDS: HYDROcodone/acetaminophen (*CRX) 5-325 MG TABLET 1 TAB PO (21:28)
[2021-01-20] MEDS: WITCH HAZEL 40 PADS 1 PAD TOPICAL (22:43)
[2021-01-20] MEDS: BENZOCAINE 20% AER SPR (*SP) 56 GM CAN 1 SPRAY TOPICAL (22:43)
--- NOTE | 2021-01-20 22:50 | OBPPTRN ---
Patient transferred to post room # 284 via wheelchair. Support person present. Oriented to unit, room, information board, rooming in, admission packet and security measures. Patient verbalizes understanding.
[2021-01-21] MEDS: HYDROcodone/acetaminophen (*CRX) 5-325 MG TABLET 1 TAB PO ×3 (01:41→23:57)
[2021-01-21 04:35] VITALS: BP 132/83; PULSE 72; RESP 16; TEMP 36.5; O2SAT 99
[2021-01-21 05:13] LABS: Hematocrit 29.3 % (37.0-47.0); Hemoglobin 9.2 g/dL (12.0-15.0)
--- NOTE | 2021-01-21 07:47 | PM.OBPNVD ---
OB - PN: Subj Subjective Date/time seen: 01/21/21 07:47 Patient comments: no complaints, pain well controlled and other (Lochia similar to menses. No DEMPSEY/visual changes) [place] baby status: doing well OB - PN: Obj Data Labs CBC & Chem 7: 01/21/21 04:47 01/19/21 18:49 Labs: Laboratory Results - last 24 hr 01/19/21 01/20/21 01/21/21 18:49 08:53 04:47 Hgb 9.2 L Hct 29.3 L Urine Opiates Screen Negative Urine Methadone Screen Negative Ur Barbiturates Screen Negative Ur Phencyclidine Scrn Negative Ur Amphetamine Screen Negative U Benzodiazepines Scrn Negative Urine Cocaine Screen Negative U Cannabinoids Screen Positive A RPR Non-reactive OB - PN A/P Assessment and Plan (1) Gestational hypertension: Code(s): O13.9 - Gestational [-induced] hypertension without significant proteinuria, unspecified trimester Status: Acute Assessment and Plan: Bp normal to mildly elevated, asymptomatic. Continue to observe. Likely discharge tomorrow Plan day: 1 (s/p vaginal delivery, doing well) Plan: routine care Time Spent With Patient Time: Total time spent is greater than 50% in coordination of care (as documented) at patient's floor/unit and/or counseling patient: Exam Const: General: no acute distress GI: Inspection: other (Fundus firm and nontender at umbilicus) GI Palp: Yes Soft to palpation and No Tenderness to palpation present (GI) Extrem: General: no edema
--- NOTE | 2021-01-21 08:03 | PC.NURSE ---
Addendum entered by Macey Calderon RN 01/21/21 08:04: Please disregard this note as it was entered on the wrong patient. Thank you. Original Note: 01/21/2021 at 0157. Patient transferred to post room #290. Support person present. Oriented to unit, room, information board, rooming in, admission packet and security measures. Patient verbalizes understanding.
[2021-01-21 08:05] VITALS: BP 143/72; PULSE 77; RESP 18; TEMP 36.8; O2SAT 99
[2021-01-21] MEDS: MULTIVIT/MIN/PREN/FOL AC/IRON TABLET 1 TAB PO (08:54)
[2021-01-21] MEDS: IBUPROFEN 600 MG TABLET PO ×2 (08:54→15:59)
[2021-01-21] MEDS: POLYSACCHARIDE IRON COMPLEX 150 MG CAPSULE PO ×2 (08:54→15:59)
[2021-01-21] MEDS: DOCUSATE SODIUM 100 MG CAPSULE PO ×2 (08:54→15:59)
--- NOTE | 2021-01-21 10:36 | WPDANLDPN2 ---
Anes-Prog Note L&D Date/Time: 01/21/21 10:36 Comfortable throughout: labor and delivery Neuraxial method: epidural Epidural/Spinal procedure site: clean & non-tender Neuro status: Neuro function grossly intact. Cardiovascular status: normal Respiratory status: normal Airway patency: baseline Mental status: baseline Post-Op hydration status: normal Vital Signs: Last Vital Signs Temp 36.8 C 01/21/21 08:05 Pulse 77 01/21/21 08:05 Resp 18 01/21/21 08:05 BP 143/72 H 01/21/21 08:05 Pulse Ox 99 01/21/21 08:05 Pain score (VAS): 3 I/O: Intake & Output 01/20/21 01/21/21 01/21/21 23:59 07:59 15:59 Intake Total 1500 Output Total 224 Balance 1276 Post-procedural complaints: none Patient feedback: Patient satisfied with anesthetic care.
[2021-01-21 11:44] VITALS: BP 137/68; PULSE 75; RESP 18; TEMP 37.1; O2SAT 99
--- NOTE | 2021-01-21 12:10 | PC.NURSE ---
Consulted with patient, reviewed feeding cues, frequencies, duration of feedings, feeding elimination flow sheet, and signs of adequate intake. Demonstrated stimulation techniques to wake for feeding. Encouraged dad to continue to stimulate to stay awake as mom was feeding. had fed on left side prior to my arrival at bedside. Assisted with infant to right breast. Reviewed positioning/alignment, holding breast and asymmetrical latch on. Infant was able to latch correctly. Showed mom how to sandwich the nipple and areolar tissue to get a deep latch. Infant nursed with bursts of sucking, occasional swallowing noted. Reviewed signs of a correct latch, effective nursing and suck swallow ratio. was able to maintain latch without discomfort to mother. Nipple care reviewed. Instructed mother to call out for RN assistance if she is unable to latch for feeding or she has discomfort with nursing. Instructed feeding should be initiated three hours from start of last feeding or if feeding cues are noted before. Mother voiced understanding of information shared.
[2021-01-21 15:30] VITALS: BP 126/75; PULSE 108; RESP 18; TEMP 36.2; O2SAT 99
--- NOTE | 2021-01-21 16:00 | PCCCNOTE ---
Care Coordination Note. Pt. referred to Care Coordination for positive THC in her UDS and history of herion use 6 years ago. Pt. lives home with spouse and this is first baby. She reports having all necessary baby care items and being setup with [facility]. She reports having good family support and denies any community resource needs. She reports not issues with abusing substances at this time just occasional THC use. Spoke with [facility] Hotline, Natalie Hwang, and she took pt.'s situation as information only (Intake ID# [id number]). No further CC needs at this time.
[2021-01-21 20:20] VITALS: BP 144/74; PULSE 75; RESP 18; TEMP 36.7; O2SAT 100
--- NOTE | 2021-01-21 21:30 | PC.NURSE ---
Patient viewed the discharge video Mother & Baby Care, The First Two Weeks . Patient was given the opportunity and encouraged to ask questions. Patient verbalized understanding of information shared and has been given the mother/baby guide for home reference.
[2021-01-22] VITALS: BP 137/77; PULSE 79; RESP 18; TEMP 36.3; O2SAT 100
[2021-01-22] MEDS: IBUPROFEN 600 MG TABLET PO ×2 (03:28→10:44)
[2021-01-22] MEDS: HYDROcodone/acetaminophen (*CRX) 5-325 MG TABLET 1 TAB PO ×2 (03:29→10:42)
[2021-01-22 04:15] VITALS: BP 143/74; PULSE 77; RESP 18; TEMP 36.5; O2SAT 99
--- NOTE | 2021-01-22 07:45 | PC.NURSE ---
Pt introductions made and plan of care discussed per post , pain management, breast feeding, daily care activities and pending discharge to home. PT and spouse both recipients of such instructions and no barriers to learning identified. PT received such instructions this shift per one to one discussion, mom baby care guide and demonstrations PT verbalized understanding of such care.
--- NOTE | 2021-01-22 07:50 | PM.OBPNVD ---
OB - PN: Subj Subjective Date/time seen: 01/22/21 07:50 Patient comments: no complaints, pain well controlled and other (Lochia similar to menses) [place] baby status: doing well Narrative: no DEMPSEY/visual changes OB - PN: Obj Data Labs CBC & Chem 7: 01/21/21 04:47 01/19/21 18:49 OB - PN A/P Assessment and Plan (1) Gestational hypertension: Code(s): O13.9 - Gestational [-induced] hypertension without significant proteinuria, unspecified trimester Status: Acute Assessment and Plan: BP normal to mildly elevated, asymptomatic. Reviewed signs/sx of preeclampsia and that is can occur . She and her expressed understanding Plan day: 2 (s/p vaginal delivery, doing well) Plan: routine care, discharge home and other (Follow up in office in 1 week) Time Spent With Patient Time: Total time spent is greater than 50% in coordination of care (as documented) at patient's floor/unit and/or counseling patient: Time with patient: less than 15 minutes Exam Const: General: no acute distress GI: Inspection: other (Fundus firm and nontender below umbilicus) GI Palp: Yes Soft to palpation and No Tenderness to palpation present (GI) Extrem: General: no edema
--- NOTE | 2021-01-22 07:51 | PM.OBDSVD ---
DS: Admitting Diagnosis Discharge Date 01/22/2021 Admitting Diagnosis gestational hypertension DS: Discharge Diagnosis Discharge Diagnosis (1) Gestational hypertension: Code(s): O13.9 - Gestational [-induced] hypertension without significant proteinuria, unspecified trimester Status: Acute (2) (spontaneous vaginal delivery): Code(s): O80 - Encounter for full-term uncomplicated delivery Status: Acute OB - DS: Summary OB Procedures : PIH Mgmt OB Procedures Intrapartum: Spontaneous Vag Delivery OB Procedures: : None Peripartum Data Delivery Method: Natural Vaginal Laceration Description: Periurethral and Perineal - 2nd Degree complications: none Status at Discharge Functional status at discharge: independent ambulation Overall status at discharge: patient is progressing back to baseline Time Spent with Patient Time attestation: Total time spent providing and/or coordinating discharge services: Time spent: Less than 30 minutes DS: Data Data Completed and Pending Pending studies at discharge: Pending at discharge 01/20/21 20:58 Surgical [PTH] Routine Discharge Plan Discharge Attending physician on discharge: Karla Perez Discharging Clinician: Karla Perez Patient Disposition: Home, Self-Care Activity: may shower and pelvic rest Diet: as tolerated Patient Instructions: Antibiotic Form Stand Alone Forms: General Discharge Information Follow-up/Referrals: Karla Perez MD [Physician] - 1 Week Discharge Medications: New hydrocodone-acetaminophen 5-325 mg Tablet 1 tablet PO Q4H PRN (Reason: Moderate Pain (4-6)) Qty: 20 RF: 0 ibuprofen 600 mg Tablet 600 mg PO Q6H PRN (Reason: Cramping) Qty: 60 RF: 0 Continued ranitidine HCl [Zantac Maximum Strength] 150 mg Tablet 150 mg DAILY PRN (Reason: Heartburn) RF: 0 #2 Tablet 1 tablet PO DAILY RF: 0 hydrocodone-acetaminophen 5-325 mg tablet 1 tablet PO Q6H PRN (Reason: pain) RF: 0 Date of admission: 01/19/21 18:00 Primary Care Provider: PHYSICIAN,UMBRELLA REPAIRER Admitting Provider: Karla Perez Attending physician on admission: Karla Perez Condition: Stable
[2021-01-22 10:40] VITALS: BP 114/61; PULSE 74; RESP 18; TEMP 36.6; O2SAT 98
[2021-01-22] MEDS: WITCH HAZEL 40 PADS 1 PAD TOPICAL (10:42)
[2021-01-22] MEDS: BENZOCAINE 20% AER SPR (*SP) 56 GM CAN 1 SPRAY TOPICAL (10:42)
[2021-01-22] MEDS: DOCUSATE SODIUM 100 MG CAPSULE PO (10:44)
[2021-01-22] MEDS: POLYSACCHARIDE IRON COMPLEX 150 MG CAPSULE PO (10:45)
[2021-01-22] MEDS: MULTIVIT/MIN/PREN/FOL AC/IRON TABLET 1 TAB PO (10:45)
--- NOTE | 2021-01-22 10:51 | PC.NURSE ---
Addendum entered by Avelina Grimm RN 01/22/21 15:05: This noted was written and performed by Ruby Grimm RN, CLC not Sandra Huddleston RN. Computer login error. Original Note: Pt is planning on dc today. Mother is very anxious and tearful thinking she is letting her baby down now that she has chosen to supplement with formula. Support provided for maternal choice. Pt is noted to have very large,wide spread, pendulous breasts. Assisted to breast using football hold on right breast. was able to latch deeply and have consistent steady draws with no smacking or clicking noted. Mother noted to have a bruised strip noted to left breast from incorrect latch yesterday. Pt using lanolin prn and educated regarding hydrogels is necessary. Mother also brought her medela electric pump and demonstrated use. noted to have adequate output and weight loss less than 10 %. Practiced using cross cradle position, however infant showing no cues in that position. Mother expresses desire to continue to supplement at this time since her TCB was slightly elevated this morning. (according to pt) DC instructions regarding engorgement and s/s mastitis discussed. Mother baby care booklet referenced for dc and outpatient services discussed. Mother now seems very much more confident. FOB is extremely supportive and hands on in infant care.
--- NOTE | 2021-01-22 13:00 | PC.NURSE ---
PT received discharge instructions per protocol and verbalized understanding of such care. Patient viewed the discharge video Mother & Baby Care, The First Two Weeks . Patient was given the opportunity and encouraged to ask questions. Patient verbalized understanding of information shared and has been given the mother/baby guide for home reference.
--- NOTE | 2021-01-22 13:48 | PC.NURSE ---
PT discharged to home ambulatory accompanied by spouse and and taken to waiting car. Follow up appts confirmed
[2021-01-23 07:56] VITALS: BP 139/72; PULSE 80; RESP 20; TEMP 37; O2SAT 100
== END 2021-01-22 13:48 | disposition home or self-care (01) | DRG 560 ==
LOC: ANHLDR 18:05 → ANHOB2 01-20 23:41
PROVIDERS: Admitting Provider Obstetrics & Gynecology; Visit Provider Obstetrics & Gynecology
DX: O13.4 Gestational [pregnancy-induced] hypertension without significant proteinuria, complicating childbirth (principal); O76 Abnormality in fetal heart rate and rhythm complicating labor and delivery; O71.82 Other specified trauma to perineum and vulva; O70.1 Second degree perineal laceration during delivery; Z3A.37 37 weeks gestation of pregnancy; Z37.0 Single live birth
CPT/HCPCS: 36415; 80053; 80307; 84550; 85014; 85018; 85025; 86592; 86850; 86900; 86901; 88307; A9270; J2405; J2590; J2795; J3010; J7120

== ENCOUNTER 2021-01-28 12:27 | Outpatient (CLI) | payer BC, SELFPAY ==
[2021-01-28] VITALS (16 sets, daily range): BP systolic 139–170; BP diastolic 81–101; PULSE 74–108
[2021-01-28 14:00] LABS: Basophils Absolute Auto 0.1 K/mm3 (0.0-0.1); Basophils Percent Auto 0.5 % (0.2-1.2); Eosinophils Absolute Auto 0.6 K/mm3 (0-0.3); Eosinophils Percent Auto 3.7 % (0-4.4); Hemoglobin 9.2 g/dL (12.0-15.0); Immature Granulocyte Absolute 0.13 K/mm3 (0.00-0.031); Immature Granulocyte Percent A 0.8 % (0-0.5); Lymphocytes Absolute Auto 4.65 K/mm3 (0.9-3.2); Lymphocytes Percent Auto 27.9 % (18.3-44.2); Mean Corpuscular HGB Conc 30.7 g/dl (32-36); Mean Corpuscular Hemoglobin 23.8 pg (26-34); Mean Corpuscular Volume 77.7 fl (80-100); Mean Platelet Volume 9.1 fl (7.4-10.4); Monocytes Absolute Auto 1.4 K/mm3 (0.1-0.6); Monocytes Percent Auto 8.2 % (2.6-8.5); Neutrophils Absolute Auto 9.8 K/mm3 (1.3-6.7); Neutrophils Percent Auto 58.9 % (45.5-73.1); Platelet Count Result 686 k/mm3 (150-375); Red Blood Count 3.86 M/mm3 (4.2-5.4); Red Cell Distribution Width 16.2 % (11.5-14.5); White Blood Count 16.7 K/mm3 (4.5-10.0)
[2021-01-28 14:39] LABS: Alanine Aminotransferase 20 U/L (4-35); Albumin Level 3.4 g/dL (3.5-5.1); Alkaline Phosphatase 127 U/L (38-126); Anion Gap 9 mmol/L (8-16); Aspartate Amino Transferase 29 U/L (14-36); Bilirubin,Total 0.1 mg/dL (0.2-1.3); Blood Urea Nitrogen 16 mg/dL (7-17); Calcium 8.8 mg/dL (8.4-10.2); Carbon Dioxide 25 mmol/L (22-30); Chloride 108 mmol/L (98-107); Estimated Glomerular Filt Rate > 60; Glucose 87 mg/dL (65-110); Potassium 3.4 mmol/L (3.4-5.0); Sodium 142 mmol/L (137-145); Uric Acid 7.1 mg/dL (2.5-7.5)
[2021-01-28] MEDS: hydroCHLOROthiazide 25 MG TABLET PO (15:32)
--- NOTE | 2021-01-28 16:07 | PC.NURSE ---
1501- SPoke with Dr. Perez, orders to give 25 mg Hydrchlorothiazide PO once now. Continue monitoring BP's. Call with update in 1-2 hours.
--- NOTE | 2021-01-28 16:57 | PC.NURSE ---
1650- Spoke with Dr. Perez, BPs reviewed. Orders to discharge to home with prescription for Hydrochlorothiazide 25 mg po once daily. ORders to follow up on Wednesday.
== END 2021-01-28 17:01 | disposition home or self-care (01) ==
LOC: ANHOBOP 12:35 → ANHOBPP 12:37
PROVIDERS: Visit Provider Obstetrics & Gynecology
DX: O13.9 Gestational [pregnancy-induced] hypertension without significant proteinuria, unspecified trimester (principal); Z3A.00 Weeks of gestation of pregnancy not specified
CPT/HCPCS: 36415; 80053; 84550; 85025; 99199; A9270

== ENCOUNTER 2021-12-10 11:26 | Outpatient (CLI) | payer OTHER, MEDICAID, SELFPAY ==
[2021-12-10 11:48] LABS: Basophils Absolute Auto 0.1 K/mm3 (0.0-0.1); Basophils Percent Auto 0.5 % (0.2-1.2); Eosinophils Absolute Auto 0.6 K/mm3 (0-0.3); Eosinophils Percent Auto 3.3 % (0-4.4); Hematocrit 41.1 % (37.0-47.0); Hemoglobin 13.2 g/dL (12.0-15.0); Immature Granulocyte Absolute 0.06 K/mm3 (0.00-0.031); Immature Granulocyte Percent A 0.3 % (0-0.5); Lymphocytes Absolute Auto 5.56 K/mm3 (0.9-3.2); Lymphocytes Percent Auto 31.5 % (18.3-44.2); Mean Corpuscular HGB Conc 32.1 g/dl (32-36); Mean Corpuscular Volume 77.8 fl (80-100); Mean Platelet Volume 9.9 fl (7.4-10.4); Monocytes Absolute Auto 1.5 K/mm3 (0.1-0.6); Monocytes Percent Auto 8.2 % (2.6-8.5); Neutrophils Absolute Auto 9.9 K/mm3 (1.3-6.7); Neutrophils Percent Auto 56.2 % (45.5-73.1); Platelet Count Result 634 k/mm3 (150-375); Red Blood Count 5.28 M/mm3 (4.2-5.4); Red Cell Distribution Width 18.6 % (11.5-14.5); White Blood Count 17.6 K/mm3 (4.5-10.0)
[2021-12-10 12:00] LABS: Alanine Aminotransferase 19 U/L (6-35); Alkaline Phosphatase 99 U/L (38-126); Anion Gap 8 mmol/L (8-16); Aspartate Amino Transferase 25 U/L (14-36); Bilirubin,Total 0.2 mg/dL (0.2-1.3); Blood Urea Nitrogen 11 mg/dL (7-17); Calcium 8.9 mg/dL (8.4-10.2); Carbon Dioxide 27 mmol/L (22-30); Chloride 104 mmol/L (98-107); Cholesterol 162 mg/dL (0-200); Estimated Glomerular Filt Rate > 60; Glucose 88 mg/dL (65-110); HDL Direct 43 mg/dL; Potassium 3.7 mmol/L (3.4-5.0); Sodium 139 mmol/L (137-145); Triglycerides 79 mg/dL (<150)
[2021-12-10 12:11] LABS: LDL Cholesterol Direct 89 mg/dL
[2021-12-10 12:48] LABS: Vitamin D 25 Hydroxy 31.2 ng/mL
== END 2021-12-10 11:27 | disposition home or self-care (01) ==
LOC: ANHLAB 11:28
PROVIDERS: Visit Provider Obstetrics & Gynecology
DX: Z00.00 Encounter for general adult medical examination without abnormal findings (principal)
CPT/HCPCS: 36415; 80053; 80061; 82306; 84443; 85025

== ENCOUNTER 2022-02-14 13:39 | Observation (INO) | payer OTHER, SELFPAY ==
--- NOTE | ~2022-02-14 | CT_ITS ---
EXAMINATION: CT abdomen pelvis wo con DATE: 02/14/2022 16:09 INDICATION: left flank pain TECHNIQUE: Computed tomography (CT) of the abdomen and pelvis was performed without intravenous contr ast. Automated exposure control and iterative reconstruction technique were employed. The dose-length product was 1032.77 mGy-cm. COMPARISON: None. FINDINGS: Lower thorax: Unremarkable Liver: Multiple surgical clips anterior to the gallbladder fossa. Biliary/Gallbladder: Gallbladder is normal. No bile duct dilation. Pancreas: No mass or duct dilation. Spleen: Absent. Adrenals:No mass. Kidneys: Multiple bilateral renal calcifications. Mild left perinephric and periureteral stranding. M oderate left hydronephrosis. No suspicious mass. GI tract: No small or large bowel dilation. Normal appendix. Mesentery/Peritoneum: No ascites, mass, or free air. Retroperitoneum: No mass. Pelvis: 9 mm distal left ureteral stone. Otherwise the pelvic organs are within normal limits. Soft Tissues: Multiple fat-containing supraumbilical ventral hernias, several contain side wall herni ations of the transverse colon, without wall thickening or obstruction. Bones: No acute osseous finding. IMPRESSION: 9 mm distal left ureteral stone causing moderate obstructive uropathy. Reviewed, dictated and finalized at location K.
--- NOTE | ~2022-02-14 | XR_ITS ---
EXAMINATION: XR retrograde pyelo w/stent LT DATE: 02/15/2022 11:09 INDICATION: Left internal ureteral stent placement TECHNIQUE: Fluoroscopic images from a left internal ureteral stent placement are submitted for review . 76 seconds of fluoroscopy time. 120 images. FINDINGS: There is a left double-J internal ureteral stent projecting in expected position, with proximal Beeler loop at the level of the renal pelvis and distal loop in the pelvis within the bladder lumen. IMPRESSION: 1. Left internal ureteral stent placement. Please refer to real-time procedural findings for detail s. Reviewed, dictated and finalized at location A. IMPRESSION: 1. Left internal ureteral stent placement. Please refer to real-time procedur al findings for details.
[2022-02-14 13:47] VITALS: BP 141/88; PULSE 88; RESP 16; TEMP 36.4; O2SAT 99
[2022-02-14] MEDS: MORPHINE SULFATE (*CRX) 4 MG/ML INJ IV PUSH ×3 (14:57→21:28)
[2022-02-14] MEDS: ONDANSETRON INJ 4 MG/2 ML VIAL IV PUSH (14:57)
[2022-02-14] MEDS: SODIUM CHLORIDE 0.9% IV 1,000 ML 999 ML IV CONT (14:58)
[2022-02-14 15:10] LABS: Basophils Absolute Auto 0.1 K/mm3 (0.0-0.1); Basophils Percent Auto 0.3 % (0.2-1.2); Eosinophils Absolute Auto 0.1 K/mm3 (0-0.3); Eosinophils Percent Auto 0.3 % (0-4.4); Hematocrit 45.5 % (37.0-47.0); Hemoglobin 14.4 g/dL (12.0-15.0); Immature Granulocyte Absolute 0.08 K/mm3 (0.00-0.031); Immature Granulocyte Percent A 0.3 % (0-0.5); Lymphocytes Absolute Auto 5.49 K/mm3 (0.9-3.2); Mean Corpuscular HGB Conc 31.6 g/dl (32-36); Mean Corpuscular Volume 78.9 fl (80-100); Mean Platelet Volume 9.9 fl (7.4-10.4); Monocytes Absolute Auto 1.8 K/mm3 (0.1-0.6); Monocytes Percent Auto 7.7 % (2.6-8.5); Neutrophils Absolute Auto 16.3 K/mm3 (1.3-6.7); Neutrophils Percent Auto 68.4 % (45.5-73.1); Platelet Count Result 656 k/mm3 (150-375); Red Blood Count 5.77 M/mm3 (4.2-5.4); Red Cell Distribution Width 20.1 % (11.5-14.5); White Blood Count 23.8 K/mm3 (4.5-10.0)
[2022-02-14 15:13] LABS: Appearance Urine Cloudy (Clear); Bilirubin Urine 1+ (Negative); Blood Urine 3+ (Negative); Color Urine Dark Yellow (Yellow); Glucose Urine UA Negative (Negative); Ketones Urine 1+ mg/dL (Negative); Leukocyte Esterase Ur 1+ LEU/UL (Negative); Nitrate Urine Negative (Negative); Protein Urine 2+ mg/dL (Negative); Urobilinogen Urine 0.2 mg/dL (<2.0); pH Urine 6.5 (5.0-9.0)
[2022-02-14 15:21] LABS: Anion Gap 11 mmol/L (8-16); Blood Urea Nitrogen 9 mg/dL (7-17); Calcium 9.1 mg/dL (8.4-10.2); Carbon Dioxide 25 mmol/L (22-30); Chloride 104 mmol/L (98-107); Estimated CRCL calculation 108 ml/min; Estimated Glomerular Filt Rate > 60; Glucose 103 mg/dL (65-110); Potassium 3.3 mmol/L (3.4-5.0); Sodium 140 mmol/L (137-145)
[2022-02-14 15:25] LABS: Bacteria Urine Trace /hpf; Mucus Urine Few /lpf; RBC Urine >75 /hpf (0-2); Squamous Epithelial Cell Urine Few /hpf (Few); WBC Urine >75 /hpf
[2022-02-14 15:29] LABS: Add Urine Microscopic? YES
[2022-02-14 15:38] LABS: Platelet Estimate Increased (Adequate); Schistocytes None Seen (NORMAL); Target Cells 1+ (NORMAL)
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
[2022-02-14 17:40] LABS: SARS-CoV-2 RNA PCR Negative
[2022-02-14 18:46] VITALS: BP 134/95; PULSE 70; RESP 16; O2SAT 100
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
--- NOTE | 2022-02-14 19:05 | ADMGEN ---
This patient, Claudia Ackerman, was admitted to [facility] Surg Room 328-01 at 1905. Patient/family oriented to hospital policies and general routines including ID bracelet, bed and alarms, visiting hours, pain management, procedures, bathroom and other care routines, personal items, smoking policy, room service/diet, and visiting hours. Information on how to activate the Rapid Response Team has been discussed. Patient/Family are encouraged to report perceived risks to care and to ask questions if they do not understand what they are told or what they should do.
[2022-02-14 19:11] VITALS: BMI 33.3
[2022-02-14 19:12] VITALS: BP 149/82; PULSE 67; RESP 16; TEMP 37.1; O2SAT 98
[2022-02-14 20:00] VITALS: BP 138/82; PULSE 65; RESP 16; TEMP 36.6; O2SAT 100
[2022-02-14] MEDS: SODIUM CHLORIDE 0.9% IV 1,000 ML 125 ML IV CONT (21:29)
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
[2022-02-15] VITALS (22 sets, daily range): BP systolic 97–128; BP diastolic 51–74; PULSE 54–76; RESP 12–20; TEMP 35.7–37.2; O2SAT 95–100
[2022-02-15] MEDS: MORPHINE SULFATE (*CRX) 2 MG/ML INJ IV PUSH ×4 (01:05→13:55)
[2022-02-15] MEDS: POTASSIUM CHLORIDE 20 MEQ PACKET (FOR LIQUID) PO (02:18)
[2022-02-15 06:07] LABS: Hematocrit 40.6 % (37.0-47.0); Hemoglobin 12.7 g/dL (12.0-15.0); Mean Corpuscular HGB Conc 31.3 g/dl (32-36); Mean Corpuscular Hemoglobin 25.4 pg (26-34); Mean Corpuscular Volume 81.2 fl (80-100); Mean Platelet Volume 9.7 fl (7.4-10.4); Platelet Count Result 576 k/mm3 (150-375); Red Cell Distribution Width 19.7 % (11.5-14.5); White Blood Count 18.2 K/mm3 (4.5-10.0)
[2022-02-15 06:21] LABS: Anion Gap 14 mmol/L (8-16); Blood Urea Nitrogen 7 mg/dL (7-17); Calcium 8.1 mg/dL (8.4-10.2); Carbon Dioxide 26 mmol/L (22-30); Chloride 105 mmol/L (98-107); Estimated CRCL calculation 103 ml/min; Estimated Glomerular Filt Rate > 60; Glucose 100 mg/dL (65-110); Magnesium 1.8 mg/dL (1.6-2.3); Potassium 3.1 mmol/L (3.4-5.0); Sodium 145 mmol/L (137-145)
[2022-02-15] MEDS: SODIUM CHLORIDE 0.9% IV 1,000 ML 125 ML IV CONT (06:23)
--- NOTE | 2022-02-15 08:46 | WPDANESEPPF ---
Anes - Initial Pre Proc Eval Procedure: Operation Date: 02/15/22 14:00 Proposed Procedures p Cysto, RPG, Stone Ext, Stent Placement - Ariel Burnett MD Date/Time: 02/15/22 08:46 Surgeon: Corazon Gómez PA-C Pre Op Diagnosis: ureterolithiasis, uti Patient Data Age: 36 Gender: F Height: 1.7 m Weight: 103.1 kg Last Vital Signs Temp 36.7 C 02/15/22 04:00 Pulse 69 02/15/22 04:00 Resp 12 02/15/22 04:00 BP 109/60 02/15/22 04:00 Pulse Ox 98 02/15/22 04:00 O2 Del Method Room Air 02/14/22 20:00 Allergies Allergy/AdvReac Type Severity Reaction Status Date / Time No Known Allergies Allergy Verified 02/14/22 13:46 Home Medications Medication Instructions Recorded Confirmed Type prenat.vits,sharron,uiu-naid-khgqc 1 tablet PO DAILY 01/15/21 12/10/21 History Laboratory Tests 02/14/22 02/14/22 02/14/22 15:02 15:02 15:02 WBC 23.8 K/mm3 H K/mm3 (4.5-10.0) RBC 5.77 M/mm3 H M/mm3 (4.2-5.4) Hgb 14.4 g/dL g/dL (12.0-15.0) Hct 45.5 % % (37.0-47.0) MCV 78.9 fl L fl (80-100) MCH 25.0 pg L pg (26-34) MCHC 31.6 g/dl L g/dl (32-36) RDW 20.1 % H % (11.5-14.5) Plt Count 656 k/mm3 H k/mm3 (150-375) MPV 9.9 fl fl (7.4-10.4) Immature Gran % (Auto) 0.3 % % (0-0.5) Neut % (Auto) 68.4 % % (45.5-73.1) Lymph % (Auto) 23.0 % % (18.3-44.2) [place] % (Auto) 7.7 % % (2.6-8.5) Eos % (Auto) 0.3 % % (0-4.4) Baso % (Auto) 0.3 % % (0.2-1.2) Lymph # (Auto) 5.49 K/mm3 H K/mm3 (0.9-3.2) [place] # (Auto) 1.8 K/mm3 H K/mm3 (0.1-0.6) Eos # (Auto) 0.1 K/mm3 K/mm3 (0-0.3) Baso # (Auto) 0.1 K/mm3 K/mm3 (0.0-0.1) Abs Immat Gran (auto) 0.08 K/mm3 H K/mm3 (0.00-0.031) Absolute Neuts (auto) 16.3 K/mm3 H K/mm3 (1.3-6.7) Absolute Nucleated RBC 0.0 K/mm3 K/mm3 (0.0-0.012) Nucleated RBC % 0.0 % % (0.0-0.2) Platelet Estimate Increased (Adequate) Target Cells 1+ (NORMAL) Schistocytes None seen (NORMAL) Sodium 140 mmol/L mmol/L (137-145) Potassium 3.3 mmol/L L mmol/L (3.4-5.0) Chloride 104 mmol/L mmol/L (98-107) Carbon Dioxide 25 mmol/L mmol/L (22-30) Anion Gap 11 mmol/L mmol/L (8-16) BUN 9 mg/dL mg/dL (7-17) Creatinine 0.80 mg/dL mg/dL (0.7-1.0) Estim Creat Clear Calc 108 ml/min ml/min Estimated GFR > 60 (59 - ) Glucose 103 mg/dL mg/dL (65-110) Calcium 9.1 mg/dL mg/dL (8.4-10.2) Magnesium Urine Color Dark yellow (Yellow) Urine Appearance Cloudy H (Clear) Urine pH 6.5 (5.0-9.0) Ur Specific [place] 1.020 (1.001-1.035) Urine Protein 2+ mg/dL H mg/dL (Negative) Urine Glucose (UA) Negative mg/dL mg/dL (Negative) Urine Ketones 1+ mg/dL H mg/dL (Negative) Ur Blood (Man) 3+ H (Negative) Urine Nitrate Negative (Negative) Urine Bilirubin 1+ H (Negative) Urine Urobilinogen 0.2 mg/dL mg/dL (<2.0) Leukocyte Esterase Rfl 1+ JAMES/UL H JAMES/UL (Negative) Urine RBC >75 /hpf H /hpf (0-2) Urine WBC >75 /hpf H /hpf Ur Squamous Epith Cells Few /hpf /hpf (Few) Urine Bacteria Trace /hpf /hpf Urine Mucus Few /lpf H /lpf SARS-CoV-2 RNA (RT-PCR) 02/14/22 02/15/22 02/15/22 16:56 05:50 05:50 WBC 18.2 K/mm3 H K/mm3 (4.5-10.0) RBC 5.00 M/mm3 M/mm3 (4.2-5.4) Hgb 12.7 g/dL g/dL (12.0-15.0) Hct 40.6 % % (37.0-47.0) MCV 81.2 fl fl (80-100) MCH 25.4 pg L pg (26-34) MCHC 31.3 g/dl L g/dl (32-36) RDW 19.
[2022-02-15] MEDS: POTASSIUM CHLORIDE INJ 40 MEQ in SODIUM CHLORIDE 0.9% IV 500 ML 130 MEQ IVPB (09:36)
--- NOTE | 2022-02-15 10:07 | WPDHPUPDATE1 ---
History and Physical Update Update Date/Time: 02/15/22 10:07 History and Physical has been reviewed, including an updated exam of the patient. There are NO changes in the patient's condition. Risks, benefits, and alternatives have been discussed and questions answered. Patient agrees to proceed with procedure.
[2022-02-15] MEDS: LACTATED RINGERS 1,000 ML 30 ML IV CONT (10:45)
[2022-02-15] MEDS: LIDOCAINE HCL 2% GEL UROJET 10 ML PKG MUCOUS MEM (11:02)
--- NOTE | 2022-02-15 11:04 | WPDUROPN2 ---
Progress Note: A&P Assessment and Plan (1) Hydronephrosis of left kidney: Code(s): N13.30 - Unspecified hydronephrosis Status: Acute (2) Ureterolithiasis: Code(s): N20.1 - Calculus of ureter Status: Acute Assessment and Plan: plan for cysto/stent placement -risks/benefits/alternatives/nature of procedure and complications reviewed -outpt stone management when infection has cleared. Subjective Subjective Date/Time Seen: 02/15/22 10:24 Pain persists, no fever. culture pending. wbc improved Review of Systems Constitutional: Constitutional: Denies chills, Denies night sweats and Denies weakness Eyes: Eyes: Reports no additional eye complaints ENT: Reports as per HPI and Reports Normal hearing present Cardiovascular: Cardiovascular: Denies chest pain and Denies palpitations Respiratory: Respiratory: Reports no additional respiratory complaints and Denies dyspnea Gastrointestinal: Gastrointestinal: Reports abdominal pain Genitourinary: Genitourinary: Reports flank pain Musculoskeletal: Musculoskeletal: Denies myalgias Integumentary/Breasts: Skin/Breast: Reports dry skin Neurologic: Reports as per HPI Psychiatric: Psychiatric: Reports no additional psychiatric complaints Exam Const: General: comfortable and no acute distress HENMT: Face/Nose/Sinus: Normal nares present Mouth: Yes moist mucous membranes abnormal Eyes: General: appearance normal, both eyes and all related structures Sclera: sclerae normal EOM: EOMs intact bilaterally Neck: Neck: supple Lymphatic: lymphadenopathy not noted Resp: Effort & Inspection: normal respiratory effort Cardio: Rate: regular rate Rhythm: regular rhythm GI: Inspection: non-distended GI Palp: Yes Soft to palpation, No Tenderness to palpation present (GI) and No Guarding due to palpation present (GI) : Other: mild left CVA TTP Skin: General skin exam: normal color Neuro: General: gait normal Extrem: General: normal to inspection and no edema Psych: Speech and movement: Normal speech and movement present Affect: normal affect Objective Data Vital Signs Vital Signs: Vital Signs - 24 hr 02/14/22 13:47 02/14/22 18:46 02/14/22 19:12 Temperature 36.4 C 37.1 C Pulse Rate 88 70 67 Respiratory Rate 16 16 16 Blood Pressure 141/88 H 134/95 H 149/82 H Pulse Oximetry 99 100 98 Oxygen Delivery 02/14/22 20:00 02/14/22 20:00 02/15/22 00:00 Temperature 36.6 C 37.2 C Pulse Rate 65 70 Respiratory Rate 16 16 Blood Pressure 138/82 100/60 Pulse Oximetry 100 97 Oxygen Delivery Room Air 02/15/22 04:00 02/15/22 09:08 Temperature 36.7 C Pulse Rate 69 Respiratory Rate 12 Blood Pressure 109/60 Pulse Oximetry 98 98 Oxygen Delivery Room Air Intake/Output Intake/Output: Intake & Output 02/12/22 02/13/22 02/14/22 02/15/22 23:59 23:59 23:59 23:59 Intake Total 1050 1000 Output Total 400 Balance 1050 600 Meds/Results Medications: Active Medications Generic Name Dose Route Start Last Admin Trade Name Freq PRN Reason Stop Dose Admin Acetaminophen 650 mg 02/14/22 21:48 Acetaminophen 325 Mg Tablet PO Q6H PRN Mild Pain (1-3) or Fever Hydrocodone Bitart/Acetaminophen 1 tab 02/14/22 21:48 Hydrocodone/Acetaminophen (*Crx) 5-325 Mg Tablet PO Q6H PRN Pain Rated 4-6 Fentanyl Citrate 25 mcg 02/15/22 08:48 Fentanyl Citrate Inj (*Crx) 100 Mcg/2 Ml Vial IV PUSH Q2M PRN Pain Ceftriaxone Sodium/Dextrose 1 gm in 50 mls @ 100 mls/hr 02/15/22 18:00 Rocephin 1 Gm/D5w 50 Ml IVPB Q24H VERNA Sodium Chloride 1,000 mls @ 125 mls/hr 02/14/22 17:45 02/15/22 06:23 Normal Saline Iv IV CONT 125 mls/hr .Q8H VERNA Administration Potassium Chloride 40 meq/ 520 mls @ 130 mls/hr 02/15/22 08:01 02/15/22 09:36 Sodium Chloride IVPB 02/15/22 12:00 130 mls/hr ONCE ONE Administration Lactated Ringer's 1,000 mls @ 30 mls/hr 02/15/22 08
--- NOTE | 2022-02-15 11:07 | W.PM.PROC2 ---
Procedure Note - Detailed Date of Procedure 02/15/22 Pre-op Diagnosis ureterolithiasis, uti Post-op Diagnosis Same Procedure Performed cystoscopy, left retrograde pyelogram, left ureter stent placement Surgeon Ariel Burnett MD Supervisor Dials none Anesthesia General Indications left ureter stone, hydronephrosis Findings distal left ureter stone, moderate hydronephrosis Description of Procedure Pateint was brought back to the operating room and given general anesthesia via LMA. She was prepped and draped in standard fashion in the dorsal lithotomy position with Betadine to the genitalia. All pressure points padded. Care was taken to not hyperflex or hyperextend any extremity. She is currently on IV Rocephin given q 24 hours. After appropriate time-out and patient identifiers were used, a 22 Fr cystoscope was inserted, the bladder and urethra were normal. She has a moderate cystocele. No tumor, lesion or masses in the bladder, she had single orthotopic ureteral orifices effluxing clear yellow urine. Manager Performance Improvement fluoroscopy shows radio-opaque density consistent with known stone. 5 Fr open ended catheter placed into left uo and RPG was performed which showed mild to moderate hydronephrosis and hydroureter. A Pictorama wire was advanced past the stone up into the renal pelvis under fluoroscopy, the open ended catheter was advanced and a hydronephrotic dip of urine was obtained, it was clear. The wire was advanced and a 4.8 Fr variable length stent was placed, good curl seen fluoroscopically in the kidney and both fluoroscopically and endoscopically in the bladder, bladder was drained, all instruments and wires were removed. Patient was awoken and transferred to postop recovery in stable conditions, no immediate complications, no family to speak with. Implants left 4.8 Fr variable length stent Estimated Blood Loss 0 Urine Output 400 Pathology None sent Complications No immediate complications Condition Stable Disposition PACU
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
--- NOTE | 2022-02-15 11:49 | PC.NURSE ---
This RN was notified by PACU that they were performing surgery early. Pt notified surgery would be happening soon. Pt A/Ox3 and was notifying family. This RN called to another room for pt with chest pains. Notified Evelia, charge account authorizer, to see if she could take pt down. Evelia stated she would. Pt seen by hospitalist. Pt family came to bedside and upset that he had not been notified of surgery. Evelia and staff took pt down with accompanying. Pt to the front RN station agitated, upset, stating we have not given good communication and that he has been in her room crying with no update in the one hour and twenty minutes she had been gone when he was told it was only a twenty minute procedure. 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 He was upset there were several of us at the nurses station. He stated that from this moment forward he wanted an update every 10 minutes. Evelia continued the conversation with him, letting him know that she was charge, updating him on her status. After their convo, returned to pt room on floor. back to RN station letting the insurance defense paralegal know he wanted everyone's names, the fund director's name, and additional info I didn't hear. Alta told family member that Evelia would get that info for him. This RN called to PACU for an update. This RN to pt room to inform . stated he never received the surgeon call, but he checked the pt's cell and it showed a missed call. Phone numbers are correct in the chart. This RN notified the pt family we were going to retrieve pt from PACU.
--- NOTE | 2022-02-15 11:53 | PC.NURSE ---
To OR per bed around 1100. Vineet, spouse, at bedside. I offered spouse to come down to pre-op with us, which he did. Patient stated that the MD said surgery will only be about 20 minutes. Spouse seemed unsure of that statement and had some questions. I then explained that she (the patient) will be in pre-op, surgery, & then post-op before returning to her room on our floor. Spouse thanked me for the explanation.
[2022-02-15] MEDS: fentaNYL CITRATE INJ (*CRX) 100 MCG/2 ML VIAL 25 MCG IV PUSH ×2 (12:02→12:07)
[2022-02-15] MEDS: HYDROmorphone HCL INJ (*CRX) 1 MG/ML SYR 0.5 MG IV PUSH ×3 (15:51→23:58)
[2022-02-15] MEDS: HYDROcodone/acetaminophen (*CRX) 5-325 MG TABLET 1 TAB PO ×2 (17:21→23:59)
[2022-02-15] MEDS: HYOSCYAMINE SULFATE 0.0625 MG TABLET PO (17:23)
[2022-02-16] VITALS: BP 101/44; PULSE 52; RESP 18; TEMP 36.3; O2SAT 97
[2022-02-16] MEDS: SODIUM CHLORIDE 0.9% IV 1,000 ML 125 ML IV CONT
[2022-02-16] MEDS: HYDROmorphone HCL INJ (*CRX) 1 MG/ML SYR 0.5 MG IV PUSH ×3 (03:19→08:18)
[2022-02-16 04:00] VITALS: BP 104/61; PULSE 54; RESP 17; TEMP 36.5; O2SAT 99
[2022-02-16] MEDS: HYDROcodone/acetaminophen (*CRX) 5-325 MG TABLET 1 TAB PO ×2 (05:22→11:33)
[2022-02-16 06:52] LABS: Basophils Absolute Auto 0.1 K/mm3 (0.0-0.1); Basophils Percent Auto 0.3 % (0.2-1.2); Eosinophils Percent Auto 0.1 % (0-4.4); Hematocrit 40.2 % (37.0-47.0); Hemoglobin 12.6 g/dL (12.0-15.0); Immature Granulocyte Absolute 0.15 K/mm3 (0.00-0.031); Immature Granulocyte Percent A 0.6 % (0-0.5); Lymphocytes Absolute Auto 4.35 K/mm3 (0.9-3.2); Lymphocytes Percent Auto 17.7 % (18.3-44.2); Mean Corpuscular HGB Conc 31.3 g/dl (32-36); Mean Corpuscular Hemoglobin 25.5 pg (26-34); Mean Corpuscular Volume 81.4 fl (80-100); Monocytes Absolute Auto 1.9 K/mm3 (0.1-0.6); Monocytes Percent Auto 7.9 % (2.6-8.5); Neutrophils Percent Auto 73.4 % (45.5-73.1); Platelet Count Result 555 k/mm3 (150-375); Red Blood Count 4.94 M/mm3 (4.2-5.4); Red Cell Distribution Width 19.9 % (11.5-14.5); White Blood Count 24.5 K/mm3 (4.5-10.0)
[2022-02-16 07:01] LABS: Anion Gap 8 mmol/L (8-16); Blood Urea Nitrogen 7 mg/dL (7-17); Calcium 8.4 mg/dL (8.4-10.2); Carbon Dioxide 27 mmol/L (22-30); Chloride 108 mmol/L (98-107); Estimated CRCL calculation 120 ml/min; Estimated Glomerular Filt Rate > 60; Glucose 116 mg/dL (65-110); Magnesium 1.8 mg/dL (1.6-2.3); Potassium 3.6 mmol/L (3.4-5.0); Sodium 143 mmol/L (137-145)
--- NOTE | 2022-02-16 07:44 | WPDUROPN2 ---
Progress Note: A&P Assessment and Plan (1) Hydronephrosis of left kidney: Code(s): N13.30 - Unspecified hydronephrosis Status: Acute Assessment and Plan: Home when cultures complete. Will make plans for cysto./left ureteroscopy, laser lithotripsy with stone extraction, possible left retrograde pyelogram and left stent replacement as outpatient. Subjective Subjective Date/Time Seen: 02/16/22 07:44 Tolerating stent well Review of Systems Cardiovascular: Cardiovascular: Denies chest pain, Denies lightheadedness, Denies palpitations and Denies dyspnea Respiratory: Respiratory: Denies dyspnea Gastrointestinal: Gastrointestinal: Denies diarrhea, Denies nausea and Denies vomiting Genitourinary: Genitourinary: Denies hematuria and Denies dysuria Endocrine: Endocrine: Denies palpitations Exam Const: General: no acute distress Resp: Effort & Inspection: normal respiratory effort GI: Inspection: non-distended GI Palp: No abdominal tenderness and No Guarding due to palpation present (GI) Auscultation: normal bowel sounds Objective Data Vital Signs Vital Signs: Vital Signs - 24 hr 02/15/22 09:08 02/15/22 08:00 02/15/22 08:48 Temperature 96.2 F L 96.2 F L Pulse Rate 67 67 Respiratory Rate 18 18 Blood Pressure 126/74 126/74 Pulse Oximetry 98 100 100 Oxygen Delivery Room Air Oxygen Flow Rate 02/15/22 11:08 02/15/22 11:15 02/15/22 11:21 Temperature 97.2 F L Pulse Rate 72 69 65 Respiratory Rate 15 20 20 Blood Pressure 98/52 L 97/51 L 102/66 Pulse Oximetry 99 100 100 Oxygen Delivery Simple Face Mask Simple Face Mask Simple Face Mask Oxygen Flow Rate 8 8 8 02/15/22 11:35 02/15/22 11:40 02/15/22 11:45 Temperature Pulse Rate 63 57 L 76 Respiratory Rate 19 19 20 Blood Pressure 107/56 L 104/69 108/67 Pulse Oximetry 100 100 100 Oxygen Delivery Simple Face Mask Simple Face Mask Room Air Oxygen Flow Rate 8 8 02/15/22 11:55 02/15/22 12:05 02/15/22 12:09 Temperature 97.1 F L Pulse Rate 68 68 67 Respiratory Rate 18 14 14 Blood Pressure 107/72 101/65 97/60 L Pulse Oximetry 95 95 95 Oxygen Delivery Room Air Room Air Room Air Oxygen Flow Rate 02/15/22 16:00 02/15/22 12:12 02/15/22 12:35 Temperature 97.6 F 97.1 F L 96.8 F L Pulse Rate 68 54 L 69 Respiratory Rate 18 16 16 Blood Pressure 128/74 111/55 L 100/56 L Pulse Oximetry 100 98 100 Oxygen Delivery Oxygen Flow Rate 02/15/22 13:05 02/15/22 14:05 02/15/22 18:00 Temperature 96.8 F L 97.5 F L 97.2 F L Pulse Rate 56 L 74 70 Respiratory Rate 18 18 18 Blood Pressure 109/65 107/56 L 110/58 L Pulse Oximetry 100 98 98 Oxygen Delivery Oxygen Flow Rate 02/15/22 20:00 02/15/22 20:00 02/16/22 00:00 Temperature 96.7 F L 97.4 F L Pulse Rate 69 52 L Respiratory Rate 18 18 Blood Pressure 104/61 101/44 L Pulse Oximetry 99 97 Oxygen Delivery Room Air Oxygen Flow Rate 02/15/22 22:43 02/16/22 04:00 Temperature 97.7 F Pulse Rate 54 L Respiratory Rate 17 Blood Pressure 104/61 Pulse Oximetry 99 99 Oxygen Delivery Room Air Oxygen Flow Rate Intake/Output Intake/Output: Intake & Output 02/13/22 02/14/22 02/15/22 02/16/22 23:59 23:59 23:59 23:59 Intake Total 1050 2050 200 Output Total 1875 600 Balance 1050 175 -400 Meds/Results Medications: Active Medications Generic Name Dose Route Start Last Admin Trade Name Freq PRN Reason Stop Dose Admin Acetaminophen 650 mg 02/14/22 21:48 Acetaminophen 325 Mg Tablet PO Q6H PRN Mild Pain (1-3) or Fever Hydrocodone Bitart/Acetaminophen 1 tab 02/14/22 21:48 02/16/22 05:22 Hydrocodone/Acetaminophen (*Crx) 5-325 Mg Tablet PO 1 tab Q6H PRN Administration Pain Rated 4-6 Hydromorphone HCl 0.5 mg 02/15/22 15:18 02/16/22 05:23 Hydromorphone Hcl Inj (*Crx) 1 Mg/Ml Syr IV PUSH 0.5 mg Q3H PRN Administration Pain Rated 7-10 Hyoscyamine 0.0625 mg 10/30/22 15:18 02/15/22 17
[2022-02-16 08:00] VITALS: BP 116/59; PULSE 66; RESP 18; TEMP 36.6; O2SAT 99
[2022-02-16 08:31] LABS: Platelet Estimate Increased (Adequate); Schistocytes None Seen (NORMAL); Target Cells 1+ (NORMAL)
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
== END 2022-02-16 12:10 | disposition home or self-care (01) ==
LOC: ANHED 17:49 → ANH3MEDSUR 18:15
PROVIDERS: Physician Assistant; Urology; Admitting Provider Family Medicine; Emergency Provider Emergency Medicine; Visit Provider Physician Assistant
PROC: (CPT 52352; principal; 2022-02-15 14:00)
DX: N13.2 Hydronephrosis with renal and ureteral calculous obstruction (principal); N39.0 Urinary tract infection, site not specified; D72.829 Elevated white blood cell count, unspecified; E87.6 Hypokalemia; N81.10 Cystocele, unspecified; Z87.442 Personal history of urinary calculi; F41.9 Anxiety disorder, unspecified; F12.11 Cannabis abuse, in remission; F11.11 Opioid abuse, in remission; Z20.822 Contact with and (suspected) exposure to COVID-19; Z86.19 Personal history of other infectious and parasitic diseases; Z87.891 Personal history of nicotine dependence; Z79.899 Other long term (current) drug therapy; Z83.3 Family history of diabetes mellitus; Z82.49 Family history of ischemic heart disease and other diseases of the circulatory system; Z83.42 Family history of familial hypercholesterolemia; R35.0 Frequency of micturition
CPT/HCPCS: 52332; 52351; 36415; 74176; 74420; 80048; 81001; 81025; 83735; 85025; 85027; 87040; 87086; 96361; 96365; 96374; 96375; 96376; 99285; A9270; C1758; C1769; C2617; G0378; J0696; J1100; J1170; J2250; J2270; J2405; J2704; J3010; J3480; J7030; J7040; J7120; Q9966; U0003; U0005

== ENCOUNTER 2022-02-19 02:27 | Day surgery (SDC) | payer OTHER, MEDICAID, SELFPAY ==
[2022-02-18 09:48] VITALS: BMI 36.0
--- NOTE | 2022-02-18 09:56 | PC.NURSE ---
Report to the Outpatient Waiting Room, entrance under the green pavilion located off [facility], at time 1015 on date 02/19/22. Planned Procedure Time: 1215. Time changes happen often and if your time is changed the preop area will call you the afternoon before. - You and your visitor will be asked to self-screen and do not enter if you have any COVID symptoms. - We encourage only one visitor and NO visitors under age 16 are allowed at this time. Your visitor will receive communication by the phone number that is given day of service. - The patient visitor is requested to social distance or may leave the building when not with patient due to restrictions. - A mask is OPTIONAL within the hospital. Patients may have clear liquids (water, carbonated beverages, clear teas, apple juice) until 3 hours prior to surgery with a maximum of 20 ounces. - No food from midnight until time of surgery Take the following medications with a SIP of water the morning of surgery: PAIN PILL IF NEEDED Medications to discontinue per physician: N/A Date to take last dose: N/A Please no make-up, nail czech, hairspray, perfume, deodorant, or body powder the day of surgery. No jewelry (including any body piercings) or valuables the day of surgery, leave them at home. Please take a shower or bath the night before, or the morning of, surgery with an antibacterial soap. Wear comfortable, loose fitting clothing. - Jewelry must be removed prior to entering the operating room. Rings and piercings that are not removed may be cut off. - The hospital will not accept responsibility for valuables. - Please leave all valuables, including medications, at home the day of surgery. If you are going home after surgery, a licensed public transit bus driver must drive you home. - NO public transportation without another adult. - We recommend that an adult stay with you for 24 hours following discharge. - We also recommend that you do not drive, make important decision, drink alcoholic beverages, or take any drugs that were not prescribed by your health care provider for at least 24 hours after your discharge time. Follow any additional instructions given to you from your surgeon. If you or anyone in your household have experienced Covid symptoms in the past week, please notify your surgeon or the nurse liaison at the phone number below for possible testing. Telephone instructions given to PT - NATTY LIAM and asked if any additional questions and then verbalized understanding. Patient advised to call surgeon office or pre surgery nurse liaison [phone] if any additional questions.
[2022-02-19] VITALS (8 sets, daily range): BP systolic 83–123; BP diastolic 41–88; PULSE 57–68; RESP 14–20; TEMP 36.7; O2SAT 95–100
--- NOTE | ~2022-02-19 | XR_ITS ---
EXAMINATION: XR stent kub - surgery DATE: 02/19/2022 12:41 INDICATION: Left internal ureteral stent placement TECHNIQUE: 4 fluoroscopic images of the abdomen and pelvis were obtained during procedure performed gabriella Burks. Radiologist was not present for the imaging or procedure. The amount of fluoroscopy mirian e used during this procedure was 0.1 minutes. COMPARISON: None. FINDINGS: Initial images demonstrate catheterization of the left ureteral orifice and advancement of a wire int o the left renal pelvis. Subsequent images demonstrate placement of a left internal ureteral stent wh ich is in expected position with loops formed in the bladder and at the left renal pelvis. No evident urolithiasis. Bowel gas pattern is unremarkable. IMPRESSION: 1. Left internal ureteral stent placement which is in expected position. See procedure note for furth er detail. Reviewed, dictated and finalized at location A. IMPRESSION: 1. Left internal ureteral stent placement which is in expected position. See pr ocedure note for further detail.
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
--- NOTE | 2022-02-19 07:24 | WPDHPUPDATE1 ---
History and Physical Update Update Date/Time: 02/19/22 07:24 History and Physical has been reviewed, including an updated exam of the patient. There are NO changes in the patient's condition. Risks, benefits, and alternatives have been discussed and questions answered. Patient agrees to proceed with procedure.
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
[2022-02-19] MEDS: ceFAZolin 2 GM/D5W 50 ML 2 GM/50 ML BAG IVPB (12:05)
[2022-02-19] MEDS: LIDOCAINE HCL 2% GEL UROJET 10 ML PKG MUCOUS MEM (12:18)
--- NOTE | 2022-02-19 12:36 | W.PM.PROC2 ---
Procedure Note - Detailed Date of Procedure 02/19/22 Pre-op Diagnosis Left Ureteral Stone Post-op Diagnosis Same Procedure Performed Cystoscopy, left ureteral stent removal, left ureteroscopy with laser lithotripsy, stone extraction and stent replacement Surgeon Lucio Burks MD Anesthesia General Description of Procedure patient is brought to the operative suite where she has prepped draped in routine sterile fashion while in dorsal lithotomy position to% lidocaine jelly was introduced intraurethrally and a general LMA anesthetic was administered per the anesthesia department. Cystoscopy is undertaken with the a 19 F rigid cystoscope. The tip of the indwelling stent is grasped and brought to the external urethral meatus. A 0.035 in glidewire was advanced in the left renal pelvis. I can see her 9 mm stone in the distal ureter, just below the left iliac vessels. Ureteroscopy was undertaken with a short tapered semi-rigid ureteral scope. The stone is fractured using a dusting protocol and a 273 micron holmium laser. All fragments were removed with a 1.9 F disposable basket. A 4.8 F variable length stent and replaced with the proximal coil in the renal pelvis and distal coil in the bladder. Scopes and wires removed and the patient was taken recovery room good condition. Drains Yes Packing No Complications No immediate complications Condition Stable
[2022-02-19] MEDS: LACTATED RINGERS 1,000 ML 30 ML IV CONT (12:43)
[2022-02-19] MEDS: oxyCODONE HCL (*CRX) 5 MG TAB IR PO (14:10)
[2022-02-19] MEDS: fentaNYL CITRATE INJ (*CRX) 100 MCG/2 ML VIAL 25 MCG IV PUSH ×2 (14:50→15:02)
== END 2022-02-19 15:25 | disposition home or self-care (01) ==
PROVIDERS: Visit Provider Urology
PROC: (CPT 52352; principal; 2022-02-19 12:15)
DX: N20.1 Calculus of ureter (principal); Z87.891 Personal history of nicotine dependence
CPT/HCPCS: 52356; 82365; 88300; A9270; C1769; C2617; J0690; J1100; J2250; J2370; J2405; J2704; J3010; J7120; J9280

== ENCOUNTER 2022-03-04 01:29 | Day surgery (SDC) | payer OTHER, MEDICAID, SELFPAY ==
[2022-03-03 15:39] VITALS: BMI 36.3
--- NOTE | 2022-03-03 15:41 | PC.NURSE ---
Report to the Outpatient Waiting Room, entrance under the green pavilion located off [facility], at time 1300 on date 03/04/22. Planned Procedure Time: 1500. Time changes happen often and if your time is changed the preop area will call you the afternoon before. - You and your visitor will be asked to self-screen and do not enter if you have any COVID symptoms. - Only one visitor is requested with a max of two and NO children visitors are allowed at this time. - The patient visitor may be requested to leave or wait in car when not with patient due to distancing restrictions. - A mask is optional within the hospital. Patients may have clear liquids (water, carbonated beverages, clear teas, apple juice) until 3 hours prior to surgery with a maximum of 20 ounces. - No food from midnight until time of surgery Take the following medications with a SIP of water the morning of surgery: PAIN PILL IF NEEDED Medications to discontinue per physician: N/A Date to take last dose: N/A Please no make-up, nail swedish, hairspray, perfume, deodorant, or body powder the day of surgery. No jewelry (including any body piercings) or valuables the day of surgery, leave them at home. Please take a shower or bath the night before, or the morning of, surgery with an antibacterial soap. Wear comfortable, loose fitting clothing. - Jewelry must be removed prior to entering the operating room. Rings and piercings that are not removed may be cut off. - The hospital will not accept responsibility for valuables. - Please leave all valuables, including medications, at home the day of surgery. If you are going home after surgery, a licensed bulk delivery driver must drive you home. - NO public transportation without another adult if you receive anesthesia. - We recommend that an adult stay with you for 24 hours following discharge. - We also recommend that you do not drive, make important decision, drink alcoholic beverages, or take any drugs that were not prescribed by your health care provider for at least 24 hours after your discharge time. Follow any additional instructions given to you from your surgeon. If you or anyone in your household have experienced Covid symptoms in the past week, please notify your surgeon or the nurse liaison at the phone number below for possible testing. Telephone instructions given to PT - NATTY WHEELER and asked if any additional questions and then verbalized understanding. Patient advised to call surgeon office or pre surgery nurse liaison [phone] if any additional questions.
[2022-03-04] VITALS (7 sets, daily range): BP systolic 87–125; BP diastolic 50–76; PULSE 54–76; RESP 16–23; TEMP 36.3–36.6; O2SAT 97–100
--- NOTE | ~2022-03-04 | XR_ITS ---
EXAMINATION: XR retrograde pyelo w/stent LT INDICATION: Left retrograde pyelogram and stent placement TECHNIQUE: 12 fluoroscopic images are submitted for review. Total fluoroscopic time was 101.4 seconds . COMPARISON: 02/15/2022 FINDINGS: Fluoroscopic images demonstrate moderate left hydronephrosis. A left internal ureteral sten t is placed in expected position on the final two images. Please refer to procedure note for full det ails. IMPRESSION: 1. Left internal ureteral stent in expected position. Please refer to procedure note for full details . Reviewed, dictated and finalized at location F. T BASIC EDUCATION INSTRUCTOR IMPRESSION: 1. Left internal ureteral stent in expected position. Please refer to procedure note for full details.
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
[2022-03-04] MEDS: ACETAMINOPHEN 500 MG TABLET 1000 MG PO (13:28)
[2022-03-04] MEDS: LACTATED RINGERS 1,000 ML 30 ML IV CONT ×3 (13:35→20:27)
[2022-03-04] MEDS: fentaNYL CITRATE INJ (*CRX) 100 MCG/2 ML VIAL 50 MCG IV PUSH ×3 (13:42→15:37)
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
--- NOTE | 2022-03-04 15:23 | WPDHPUPDATE1 ---
History and Physical Update Update Date/Time: 03/04/22 15:23 History and Physical has been reviewed, including an updated exam of the patient. There are NO changes in the patient's condition. Risks, benefits, and alternatives have been discussed and questions answered. Patient agrees to proceed with procedure.
[2022-03-04] MEDS: HYDROmorphone HCL INJ (*CRX) 1 MG/ML SYR 0.5 MG IV PUSH ×4 (16:10→17:31)
--- NOTE | 2022-03-04 16:19 | SUR.PREOP ---
1619- Report given to JAKUB Velarde. Pt resting in pre op 11. Pt spoke with Dr. Lake, aware of delay. Pt updated. Currently treating pain for left flank pain. Denies Nausea at this time. Recently up to restroom. Pluse ox 98%
[2022-03-04] MEDS: ceFAZolin 2 GM/D5W 50 ML 2 GM/50 ML BAG IVPB (19:27)
[2022-03-04] MEDS: LIDOCAINE HCL 2% GEL UROJET 10 ML PKG MUCOUS MEM (19:51)
--- NOTE | 2022-03-04 20:16 | P.OP_ITS ---
Procedure Note - Detailed Date of Procedure 03/04/22 Pre-op Diagnosis left distal ureteral stone Post-op Diagnosis Same Procedure Performed Cystoscopy, left ureteroscopy, laser lithotripsy, stone extraction, retrograde pyelogram, stent insertion Surgeon Paul Lake MD Anesthesia General Findings -multiple left distal ureteral stones -3mm left renal stone Description of Procedure Informed consent was obtained. Patient in the operating. She was given preop erative IV antibiotics. She was induced with anesthesia. We inserted the 22 F cystoscope through the urethra into the bladder. Inspection of the bladder revealed no mucosal abnormalities. We then cannulated the left ureteral orifice with a wire and were able to manipulate the wire past the level of the stone in the distal ureter. We then dilated with an 810 coaxial dilator. We then advanced a semi rigid ureteral scope into the distal ureter and identified a narrowed area approximately 5cm above the ureterovesical junction above which multiple stones are identified. The stones are too large to be removed, therefore using a laser fiber we fragmented the stones into multiple smaller fragments that were then each grasped and removed. We then inspected the distal 2/3 of the ureter and there is no residual stone seen. We then advanced the flexible ureteroscope into the ureter up to the renal pelvis. Retrograde pyelogram demonstrated a moderately hydronephrotic bifid collecting system. Inspection of each calyx revealed a 3mm stone in the left lower pole that was grasped and removed. There were no other stone seen in the kidney. Inspection the length of the ureter did not reveal any stones nor injury to the ureter. Over wire we then passed a 6 F variable length stent with a curl in the renal pelvis and a curl in the bladder. Bladder was emptied. Lidocaine was instilled. Patient was awakened and taken to PACU in stable condition Pathology Yes Complications No immediate complications Condition Stable Disposition PACU
[2022-03-04] MEDS: fentaNYL CITRATE INJ (*CRX) 100 MCG/2 ML VIAL 25 MCG IV PUSH ×2 (21:14→21:18)
[2022-03-04] MEDS: oxyCODONE HCL (*CRX) 5 MG TAB IR PO (22:03)
== END 2022-03-04 22:33 | disposition home or self-care (01) ==
PROVIDERS: Visit Provider Urology
PROC: (CPT 52352; principal; 2022-03-04 15:00)
DX: N13.2 Hydronephrosis with renal and ureteral calculous obstruction (principal); Z87.891 Personal history of nicotine dependence; E66.9 Obesity, unspecified; Z68.34 Body mass index [BMI] 34.0-34.9, adult
CPT/HCPCS: 52356; 74420; 82365; 88300; A9270; C1769; C2617; J0690; J1100; J1170; J2405; J2704; J3010; J7120

== ENCOUNTER 2022-06-04 13:37 | Observation (INO) | payer OTHER, MEDICAID, SELFPAY ==
--- NOTE | ~2022-06-04 | XR_ITS ---
EXAMINATION: XR retrograde pyelo w/stent RT DATE: 06/05/2022 11:03 INDICATION: Right-sided ureteral stone extraction and stent placement. TECHNIQUE: 7 fluoroscopic images of the abdomen and pelvis were obtained during procedure performed gabriella Maldonado. Radiologist was not present for the imaging or procedure. The amount of fluoroscopy t glo used during this procedure was 0.2 minutes. COMPARISON: CT dated 06/04/2022 FINDINGS: A few densities project over the region of the right upper and right kidney on the state federal relations deputy director image corres ponding to additional right renal stone seen on CT. The stone seen on CT at the right ureterovesicula r junction is not identified and has likely passed or been extracted. Subsequent images demonstrate c annulation and retrograde contrast injection into the right ureter which demonstrates residual mild r ight hydroureteronephrosis. Initially a wire and subsequently an internal ureteral stent advanced int o the right renal pelvis. The dose length of the stent is formed in the bladder on the final image. IMPRESSION: 1. Right nephrolithiasis with no stone identified in the region of the right ureterovesicular junctio n which could be due to either interval passage or extraction bladder. See procedure note for further detail. 2. Right internal ureteral stent placement which is in expected position. Reviewed, dictated and finalized at location [facility]. [facility] IMPRESSION: 1. Right nephrolithiasis with no stone identified in the region of the right ur eterovesicular junction which could be due to either interval passage or extrac tion bladder. See procedure note for further detail. 2. Right internal ureteral stent placement which is in expected position.
--- NOTE | ~2022-06-04 | CT_ITS ---
EXAMINATION: CT abdomen pelvis wo con DATE: 06/04/2022 16:42 INDICATION: Right flank pain. History of obstructive nephrolithiasis. TECHNIQUE: Computed tomography (CT) of the abdomen and pelvis was performed without intravenous contr ast. The dose-length product was 452.55 mGy-cm. Automated exposure control and iterative reconstructi on technique were employed. COMPARISON: CT dated 02/14/2022. FINDINGS: Lung bases are unremarkable. Heart size normal. No significant pleural or pericardial effus ion. There is a 5-6 mm right UVJ stone with moderate right hydroureter ureteronephrosis. There is per iureteral and perinephric stranding. There is left renal atrophy. There are multiple nonobstructing r ight renal stones. There are surgical clips near the gallbladder fossa. The gallbladder is present. The liver, spleen, p ancreas, adrenal glands are unremarkable. There are small ventral hernias containing fat. There is fo sharron subtle herniation in the upper abdomen of the colon without obstruction. Mildly prominent inguina l lymph nodes, likely reactive. No significant vascular abnormality. Nonobstructive bowel pattern. No rmal appendix. No abnormal pelvic masses or fluid collections. IMPRESSION: 1. Right UVJ stone measuring 5-6 mm with moderate hydroureteronephrosis. Periureteral and perinephric stranding are present. Cannot exclude ascending urinary tract infection. 2: Nonobstructing right nephrolithiasis. Left renal atrophy. 3: Multiple ventral abdominal hernias with subtle herniation of the transverse colon which is nonobst ructive. Reviewed, dictated and finalized at location A. CHANCELLOR IMPRESSION: 1. Right UVJ stone measuring 5-6 mm with moderate hydroureteronephrosis. Periur eteral and perinephric stranding are present. Cannot exclude ascending urinary tract infection. 2: Nonobstructing right nephrolithiasis. Left renal atrophy. 3: Multiple ventral abdominal hernias with subtle herniation of the transverse colon which is nonobstructive.
[2022-06-04 13:40] VITALS: BP 151/98; PULSE 64; RESP 22; TEMP 36.6; O2SAT 100
[2022-06-04 14:24] LABS: Appearance Urine Cloudy (Clear); Bilirubin Urine Negative (Negative); Blood Urine 3+ (Negative); Color Urine Yellow (Yellow); Glucose Urine UA Negative (Negative); Ketones Urine Negative (Negative); Leukocyte Esterase Ur 1+ LEU/UL (Negative); Nitrate Urine Negative (Negative); Protein Urine 2+ mg/dL (Negative); Specific Grav Ur 1.025 (1.001-1.035); Urobilinogen Urine 0.2 mg/dL (<2.0)
[2022-06-04 14:35] LABS: Amorphous Sediment Urine Few; Bacteria Urine Trace /hpf; Mucus Urine Few /lpf; RBC Urine >75 /hpf (0-2); Squamous Epithelial Cell Urine Many /hpf (Few); WBC Urine 21-30 /hpf
[2022-06-04 14:38] LABS: Add Urine Microscopic? YES
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
[2022-06-04 16:13] LABS: Basophils Absolute Auto 0.1 K/mm3 (0.0-0.1); Basophils Percent Auto 0.5 % (0.2-1.2); Eosinophils Absolute Auto 0.2 K/mm3 (0-0.3); Eosinophils Percent Auto 1.3 % (0-4.4); Hematocrit 45.9 % (37.0-47.0); Hemoglobin 14.9 g/dL (12.0-15.0); Immature Granulocyte Absolute 0.07 K/mm3 (0.00-0.031); Immature Granulocyte Percent A 0.4 % (0-0.5); Lymphocytes Absolute Auto 3.04 K/mm3 (0.9-3.2); Lymphocytes Percent Auto 16.5 % (18.3-44.2); Mean Corpuscular HGB Conc 32.5 g/dl (32-36); Mean Corpuscular Hemoglobin 26.6 pg (26-34); Mean Platelet Volume 10.1 fl (7.4-10.4); Monocytes Absolute Auto 1.4 K/mm3 (0.1-0.6); Monocytes Percent Auto 7.8 % (2.6-8.5); Neutrophils Absolute Auto 13.5 K/mm3 (1.3-6.7); Neutrophils Percent Auto 73.5 % (45.5-73.1); Platelet Count Result 662 k/mm3 (150-375); Red Cell Distribution Width 18.7 % (11.5-14.5); White Blood Count 18.4 K/mm3 (4.5-10.0)
[2022-06-04] MEDS: SODIUM CHLORIDE 0.9% IV 1,000 ML 999 ML IV CONT (16:14)
[2022-06-04] MEDS: ONDANSETRON INJ 4 MG/2 ML VIAL IV PUSH ×2 (16:15→21:44)
[2022-06-04] MEDS: HYDROmorphone HCL INJ (*CRX) 1 MG/ML SYR 0.5 MG IV PUSH ×3 (16:15→23:22)
[2022-06-04 16:22] LABS: Anion Gap 7 mmol/L (8-16); Blood Urea Nitrogen 12 mg/dL (7-17); Carbon Dioxide 27 mmol/L (22-30); Chloride 103 mmol/L (98-107); Estimated CRCL calculation 119 ml/min; Estimated Glomerular Filt Rate > 60; Glucose 101 mg/dL (65-110); Potassium 3.5 mmol/L (3.4-5.0); Sodium 137 mmol/L (137-145)
--- NOTE | 2022-06-04 16:35 | PC.NURSE ---
Pt to CT scan via w/c.
[2022-06-04 17:22] VITALS: BP 114/68; PULSE 99; RESP 15; TEMP 36.6; O2SAT 100
[2022-06-04 18:52] VITALS: BP 129/71; PULSE 74; RESP 16; TEMP 36.1; O2SAT 100
[2022-06-04 20:10] LABS: Influenza A QL RT-PCR Negative (Negative); Influenza B QL RT-PCR Negative (Negative); RSV RNA, RT-PCR Negative (Negative); SARS-CoV-2 RNA PCR Negative
--- NOTE | 2022-06-04 20:45 | PC.NURSE ---
2043 - Attempted to call report, spoke with JAKUB Chance. Stated that they are having printer issues and unable to print out the report at this time. Will call back for report.
[2022-06-04] MEDS: SODIUM CHLORIDE 0.9% IV 1,000 ML 150 ML IV CONT (21:44)
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
[2022-06-04 22:00] VITALS: BP 122/65; PULSE 66; RESP 18; TEMP 35.9; O2SAT 99; BMI 35.7
--- NOTE | 2022-06-04 22:19 | ADMGEN ---
This patient, Claudia Ackerman, was admitted to [facility] Surg Room 320-01. Patient/family oriented to hospital policies and general routines including ID bracelet, bed and alarms, visiting hours, pain management, procedures, bathroom and other care routines, personal items, smoking policy, room service/diet, and visiting hours. Information on how to activate the Rapid Response Team has been discussed. Patient/Family are encouraged to report perceived risks to care and to ask questions if they do not understand what they are told or what they should do.
--- NOTE | 2022-06-04 23:57 | PC.NURSE ---
Patient resting some now after new pain medication order. Patient needed adjustment on pain orders for further control. Dr Myles called and orders received.
[2022-06-05] VITALS (8 sets, daily range): BP systolic 102–142; BP diastolic 55–76; PULSE 59–71; RESP 14–18; TEMP 35.7–36.6; O2SAT 93–100
[2022-06-05] MEDS: TAPENTADOL HCL (*CRX) 50 MG TABLET PO ×4 (00:46→21:49)
[2022-06-05] MEDS: HYDROmorphone HCL INJ (*CRX) 1 MG/ML SYR 0.5 MG IV PUSH ×3 (03:05→13:16)
[2022-06-05] MEDS: ONDANSETRON INJ 4 MG/2 ML VIAL IV PUSH (03:05)
[2022-06-05] MEDS: SODIUM CHLORIDE 0.9% IV 1,000 ML 150 ML IV CONT (04:41)
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
[2022-06-05 08:46] LABS: Basophils Absolute Auto 0.1 K/mm3 (0.0-0.1); Basophils Percent Auto 0.6 % (0.2-1.2); Eosinophils Absolute Auto 0.6 K/mm3 (0-0.3); Eosinophils Percent Auto 4.1 % (0-4.4); Hematocrit 43.1 % (37.0-47.0); Hemoglobin 13.4 g/dL (12.0-15.0); Immature Granulocyte Absolute 0.04 K/mm3 (0.00-0.031); Immature Granulocyte Percent A 0.3 % (0-0.5); Lymphocytes Absolute Auto 5.93 K/mm3 (0.9-3.2); Lymphocytes Percent Auto 38.5 % (18.3-44.2); Mean Corpuscular HGB Conc 31.1 g/dl (32-36); Mean Corpuscular Hemoglobin 26.2 pg (26-34); Mean Corpuscular Volume 84.2 fl (80-100); Mean Platelet Volume 9.9 fl (7.4-10.4); Monocytes Absolute Auto 1.4 K/mm3 (0.1-0.6); Monocytes Percent Auto 9.3 % (2.6-8.5); Neutrophils Absolute Auto 7.3 K/mm3 (1.3-6.7); Neutrophils Percent Auto 47.2 % (45.5-73.1); Platelet Count Result 548 k/mm3 (150-375); Red Blood Count 5.12 M/mm3 (4.2-5.4); Red Cell Distribution Width 18.6 % (11.5-14.5); White Blood Count 15.4 K/mm3 (4.5-10.0)
[2022-06-05 09:00] LABS: Alanine Aminotransferase 20 U/L (6-35); Albumin Level 3.8 g/dL (3.5-5.1); Alkaline Phosphatase 92 U/L (38-126); Anion Gap 2 mmol/L (8-16); Aspartate Amino Transferase 23 U/L (14-36); Bilirubin,Total 0.4 mg/dL (0.2-1.3); Blood Urea Nitrogen 9 mg/dL (7-17); Calcium 7.9 mg/dL (8.4-10.2); Carbon Dioxide 28 mmol/L (22-30); Chloride 108 mmol/L (98-107); Estimated CRCL calculation 121 ml/min; Estimated Glomerular Filt Rate > 60; Glucose 92 mg/dL (65-110); Potassium 3.9 mmol/L (3.4-5.0); Sodium 138 mmol/L (137-145)
--- NOTE | 2022-06-05 10:03 | WPDHPUPDATE1 ---
History and Physical Update Update Date/Time: 06/05/22 10:03 History and Physical has been reviewed, including an updated exam of the patient. There are NO changes in the patient's condition. Risks, benefits, and alternatives have been discussed and questions answered. Patient agrees to proceed with procedure. Proceed with cysto, right retrograde, right ureteroscopy with stone extraction, possible laser, stent placement
--- NOTE | 2022-06-05 10:05 | WPDANESEPPF ---
Anes - Initial Pre Proc Eval Procedure: Operation Date: 06/05/22 12:30 Proposed Procedures p Cystoscopy,Right Ureteroscopy,Right Retrograde Pyelogram,Right Stone Extraction,Possible Holmium Laser,Possible Stent Placement - José Miguel Maldonado MD Date/Time: 06/05/22 10:05 Surgeon: Corazon Gómez PA-C Pre Op Diagnosis: ureterolithiasis Patient Data Age: 36 Gender: F Height: 1.7 m Weight: 103.5 kg Last Vital Signs Temp 36.6 C 06/05/22 09:53 Pulse 71 06/05/22 09:53 Resp 14 06/05/22 09:53 BP 115/69 06/05/22 09:53 Pulse Ox 99 06/05/22 09:53 O2 Del Method Room Air 06/05/22 09:53 Allergies Allergy/AdvReac Type Severity Reaction Status Date / Time No Known Allergies Allergy Verified 06/04/22 16:12 Home Medications Medication Instructions Recorded Confirmed Type hydrocodone 5 mg-acetaminophen 325 1 - 2 tablet PO Q6H PRN Pain 03/03/22 06/04/22 History mg tablet Laboratory Tests 06/04/22 06/04/22 06/04/22 14:10 16:08 16:08 WBC 18.4 K/mm3 H K/mm3 (4.5-10.0) RBC 5.60 M/mm3 H M/mm3 (4.2-5.4) Hgb 14.9 g/dL g/dL (12.0-15.0) Hct 45.9 % % (37.0-47.0) MCV 82.0 fl fl (80-100) MCH 26.6 pg pg (26-34) MCHC 32.5 g/dl g/dl (32-36) RDW 18.7 % H % (11.5-14.5) Plt Count 662 k/mm3 H k/mm3 (150-375) MPV 10.1 fl fl (7.4-10.4) Immature Gran % (Auto) 0.4 % % (0-0.5) Neut % (Auto) 73.5 % H % (45.5-73.1) Lymph % (Auto) 16.5 % L % (18.3-44.2) [place] % (Auto) 7.8 % % (2.6-8.5) Eos % (Auto) 1.3 % % (0-4.4) Baso % (Auto) 0.5 % % (0.2-1.2) Lymph # (Auto) 3.04 K/mm3 K/mm3 (0.9-3.2) [place] # (Auto) 1.4 K/mm3 H K/mm3 (0.1-0.6) Eos # (Auto) 0.2 K/mm3 K/mm3 (0-0.3) Baso # (Auto) 0.1 K/mm3 K/mm3 (0.0-0.1) Abs Immat Gran (auto) 0.07 K/mm3 H K/mm3 (0.00-0.031) Absolute Neuts (auto) 13.5 K/mm3 H K/mm3 (1.3-6.7) Absolute Nucleated RBC 0.0 K/mm3 K/mm3 (0.0-0.012) Nucleated RBC % 0.0 % % (0.0-0.2) Sodium 137 mmol/L mmol/L (137-145) Potassium 3.5 mmol/L mmol/L (3.4-5.0) Chloride 103 mmol/L mmol/L (98-107) Carbon Dioxide 27 mmol/L mmol/L (22-30) Anion Gap 7 mmol/L L mmol/L (8-16) BUN 12 mg/dL D mg/dL (7-17) Creatinine 0.70 mg/dL mg/dL (0.7-1.0) Estim Creat Clear Calc 119 ml/min ml/min Estimated GFR > 60 (59 - ) Glucose 101 mg/dL mg/dL (65-110) Calcium 9.0 mg/dL mg/dL (8.4-10.2) Total Bilirubin AST ALT Alkaline Phosphatase Total Protein Albumin Urine Color Yellow (Yellow) Urine Appearance Cloudy H (Clear) Urine pH 6.0 (5.0-9.0) Ur Specific [place] 1.025 (1.001-1.035) Urine Protein 2+ mg/dL H mg/dL (Negative) Urine Glucose (UA) Negative mg/dL mg/dL (Negative) Urine Ketones Negative mg/dL mg/dL (Negative) Ur Blood (Man) 3+ H (Negative) Urine Nitrate Negative (Negative) Urine Bilirubin Negative (Negative) Urine Urobilinogen 0.2 mg/dL mg/dL (<2.0) Leukocyte Esterase Rfl 1+ JAMES/UL H JAMES/UL (Negative) Urine RBC >75 /hpf H /hpf (0-2) Urine WBC 21-30 /hpf H /hpf Ur Squamous Epith Cells Many /hpf H /hpf (Few) Amorphous Sediment Few H (None) Urine Bacteria Trace /hpf /hpf Urine Mucus Few /lpf H /lpf Influenza A (RT-PCR) Influenza B (RT-PCR) RSV (RT-PCR) SARS-CoV-2 RNA (RT-PCR) 06/04/22 06/05/22 06/05/22 19:29 08:24 08:24 WBC 15.4 K/mm3 H K/mm3 (4.5-10.0) R
[2022-06-05] MEDS: LACTATED RINGERS 1,000 ML 30 ML IV CONT (10:13)
[2022-06-05] MEDS: LIDOCAINE HCL 2% GEL UROJET 10 ML PKG MUCOUS MEM (10:55)
--- NOTE | 2022-06-05 10:56 | W.PM.PROC2 ---
Procedure Note - Detailed Date of Procedure 06/05/22 Pre-op Diagnosis Right ureteral calculus 6-7 mm Post-op Diagnosis Same Procedure Performed cystoscopy, right retrograde pyelogram, right ureteroscopy with stone extraction, right ureteral stent placement 4.8 Citizen [place] contour Surgeon José Miguel Maldonado MD Anesthesia General Description of Procedure patient was taken to the operative suite correctly identified. Once anesthesia was obtained she was prepped and draped usual sterile fashion in the dorsal lithotomy position. Twenty-two [place] scope inserted into the bladder. There were no tumors noted. The right ureteral orifice was cannulated with a guidewire. 8/10 dilator was used to dilate the orifice. Rigid ureteral scope was then inserted into the orifice the stone was visualized. Using escape basket we retrieved in its entirety and sent for analysis. Reinspection revealed no Residual stone. Pyelogram was then performed to confirm placement the stent. 4.8 [place] contour stent was then placed with the proximal end coiled in the renal pelvis and the distal in the bladder. 2% viscous lidocaine was inserted into the urethra patient is taken recovery stable condition. Patient will follow-up in approximately 7-10 days for cysto with stent removal. Please send a copy of op note to my office. Estimated Blood Loss 0 Urine Output 400 Drains Yes Packing No Pathology Yes Complications No immediate complications Condition Stable Disposition PACU
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
[2022-06-05] MEDS: traMADol HCL (*CRX) 50 MG TABLET PO (16:05)
[2022-06-05] MEDS: ACETAMINOPHEN 325 MG TABLET 650 MG PO (18:08)
[2022-06-05] MEDS: oxyBUTYnin CHLORIDE 5 MG TABLET PO (18:34)
[2022-06-06] MEDS: traMADol HCL (*CRX) 50 MG TABLET PO ×2 (01:22→08:21)
[2022-06-06 05:00] VITALS: BP 132/81; PULSE 66; RESP 18; TEMP 36; O2SAT 100
[2022-06-06] MEDS: TAPENTADOL HCL (*CRX) 50 MG TABLET PO (05:59)
[2022-06-06 07:46] LABS: Hematocrit 41.6 % (37.0-47.0); Hemoglobin 13.3 g/dL (12.0-15.0); Mean Corpuscular Hemoglobin 26.1 pg (26-34); Mean Corpuscular Volume 81.6 fl (80-100); Platelet Count Result 608 k/mm3 (150-375); Red Cell Distribution Width 18.6 % (11.5-14.5); White Blood Count 28.2 K/mm3 (4.5-10.0)
[2022-06-06 07:54] LABS: Anion Gap 3 mmol/L (8-16); Blood Urea Nitrogen 8 mg/dL (7-17); Calcium 8.6 mg/dL (8.4-10.2); Carbon Dioxide 29 mmol/L (22-30); Chloride 105 mmol/L (98-107); Estimated CRCL calculation 139 ml/min; Estimated Glomerular Filt Rate > 60; Glucose 97 mg/dL (65-110); Potassium 3.6 mmol/L (3.4-5.0); Sodium 137 mmol/L (137-145)
[2022-06-06] MEDS: oxyBUTYnin CHLORIDE 5 MG TABLET PO ×2 (08:21→12:58)
[2022-06-06] MEDS: ACETAMINOPHEN 325 MG TABLET 650 MG PO (10:19)
--- NOTE | 2022-06-06 13:22 | WPDUROPN2 ---
Progress Note: A&P Assessment and Plan (1) Right ureteral stone: Code(s): N20.1 - Calculus of ureter Status: Acute Assessment and Plan: Doing well postoperative day 1. From ureteroscopy with right ureteral stone extraction. Can discharge home. If develops fever she is aware that she will need to notify us. Will follow up in about 1 week for cysto with stent removal in the office. Subjective Subjective Date/Time Seen: 06/06/22 13:22 Post Op day: 1 ( Cystoscopy, left ureteroscopy with stone extraction and stent placement) Principal diagnosis: Right ureteral calculus Interval history: Cherelle is feeling much better today. Patient is anxious and ready to go home. White count slightly elevated but patient is afebrile. Review of Systems Review of Systems: All systems reviewed & are unremarkable except as noted in HPI and below Exam Const: General: cooperative and comfortable Resp: Effort & Inspection: normal respiratory effort Cardio: Rate: regular rate Rhythm: regular rhythm Objective Data Vital Signs Vital Signs: Vital Signs - 24 hr 06/05/22 20:11 06/06/22 05:00 06/06/22 08:25 Temperature 36.2 C L 36.0 C L Pulse Rate 68 66 Respiratory Rate 18 18 Blood Pressure 111/55 L 132/81 Pulse Oximetry 98 100 Oxygen Delivery Room Air Intake/Output Intake/Output: Intake & Output 06/03/22 06/04/22 06/05/22 06/06/22 23:59 23:59 23:59 23:59 Intake Total 1150 3770 375 Output Total 2200 1250 Balance 1150 1570 -875 Meds/Results Medications: Active Medications Generic Name Dose Route Start Last Admin Trade Name Freq PRN Reason Stop Dose Admin Acetaminophen 650 mg 06/05/22 15:44 06/06/22 10:19 Acetaminophen 325 Mg Tablet PO 650 mg Q6H PRN Administration Mild-moderate pain Ceftriaxone Sodium/Dextrose 1 gm in 50 mls @ 100 mls/hr 06/05/22 19:00 06/05/22 18:36 Rocephin 1 Gm/D5w 50 Ml IVPB Infused Q24H VERNA Infusion Lactated Ringer's 1,000 mls @ 30 mls/hr 06/05/22 10:10 06/05/22 12:01 Lr - Lactated Ringers Iv IV CONT Infused .Q24H VERNA Infusion Lactated Ringer's 1,000 mls @ 30 mls/hr 06/05/22 10:10 06/05/22 18:00 Lr - Lactated Ringers Iv IV CONT Not Given .Q24H VERNA Ondansetron HCl 4 mg 06/04/22 19:50 06/05/22 03:05 Ondansetron Inj 4 Mg/2 Ml Vial IV PUSH 4 mg Q4H PRN Administration Nausea Ondansetron HCl 4 mg 06/05/22 10:07 Ondansetron Inj 4 Mg/2 Ml Vial IV PUSH ONCE PRN Nausea Oxybutynin Chloride 5 mg 06/05/22 18:16 06/06/22 12:58 Oxybutynin Chloride 5 Mg Tablet PO 5 mg TID PRN Administration bladder pain Tramadol HCl 50 mg 06/05/22 15:44 06/06/22 08:21 Tramadol Hcl (*Crx) 50 Mg Tablet PO 50 mg Q6H PRN Administration Mod-Severe pain Radiology Results: ITS Impressions Abdomen/Pelvis CT 06/04/22 16:44 IMPRESSION: 1. Right UVJ stone measuring 5-6 mm with moderate hydroureteronephrosis. Periureteral and perinephric stranding are present. Cannot exclude ascending urinary tract infection. 2: Nonobstructing right nephrolithiasis. Left renal atrophy. 3: Multiple ventral abdominal hernias with subtle herniation of the transverse colon which is nonobstructive. Retrograde Pyelogram 06/05/22 12:52 IMPRESSION: 1. Right nephrolithiasis with no stone identified in the region of the right ureterovesicular junction which could be due to either interval passage or extraction bladder. See procedure note for further detail. 2. Right internal ureteral stent placement which is in expected position. Labs Labs: Laboratory Results - last 24 hr 06/06/22 06/06/22 07:08 07:08 WBC 28.2 H RBC 5.10 Hgb 13.3 Hct 41.6 MCV 81.6 MCH 26.1 MCHC 32.0 RDW 18.6 H Plt Count 608 H MPV 10.0 Sodium 137 Potassium 3.6 Chloride 105 Carbon Dioxide 29 Anion Gap 3 L BUN 8 Creatinine 0.60 L Estim Creat Clear Calc 139 Estimated
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
--- NOTE | 2022-06-06 14:39 | WPDANESPN ---
Anes - Prog Note Post-Op Date/Time: 06/06/22 14:39 Cardiovascular status: normal Respiratory status: normal Airway patency: baseline Mental status: baseline Post-Op hydration status: normal Vital Signs: Last Vital Signs Temp 36.0 C L 06/06/22 05:00 Pulse 66 06/06/22 05:00 Resp 18 06/06/22 05:00 BP 132/81 06/06/22 05:00 Pulse Ox 100 06/06/22 05:00 O2 Del Method Room Air 06/06/22 08:25 O2 Flow Rate 8 06/05/22 11:20 Pain Score (VAS): 10, when rounding this morning I/O: Intake & Output 06/05/22 06/06/22 06/06/22 23:59 07:59 15:59 Intake Total 1610 375 745 Output Total 900 1250 Balance 710 -875 745 Laboratory Tests 06/06/22 07:08 06/06/22 07:08 06/06/22 06/06/22 07:08 07:08 WBC 28.2 H RBC 5.10 Hgb 13.3 Hct 41.6 MCV 81.6 MCH 26.1 MCHC 32.0 RDW 18.6 H Plt Count 608 H MPV 10.0 Sodium 137 Potassium 3.6 Chloride 105 Carbon Dioxide 29 Anion Gap 3 L BUN 8 Creatinine 0.60 L Estim Creat Clear Calc 139 Estimated GFR > 60 Glucose 97 Calcium 8.6 Microbiology 06/04/22 14:10 Urine Clean Catch Urine Culture - Final 06/04/22 19:29 Blood Blood Culture - Preliminary 06/04/22 19:38 Blood Blood Culture - Preliminary Post-procedural complaints: none Patient Feedback: Patient satisfied with anesthetic care.
== END 2022-06-06 14:20 | disposition home or self-care (01) ==
LOC: ANHED 15:01 → ANH3MEDSUR 21:03
PROVIDERS: Emergency Medicine; Urology; Admitting Provider Internal Medicine; Emergency Provider Emergency Medicine; Visit Provider Physician Assistant
PROC: (CPT 52352; principal; 2022-06-05 12:30)
DX: N20.1 Calculus of ureter (principal); N13.30 Unspecified hydronephrosis; R82.90 Unspecified abnormal findings in urine; D72.829 Elevated white blood cell count, unspecified; M54.9 Dorsalgia, unspecified; K46.9 Unspecified abdominal hernia without obstruction or gangrene; F41.9 Anxiety disorder, unspecified; Q89.01 Asplenia (congenital); E66.9 Obesity, unspecified; Z68.35 Body mass index [BMI] 35.0-35.9, adult; Z20.822 Contact with and (suspected) exposure to COVID-19; F10.90 Alcohol use, unspecified, uncomplicated; Z87.891 Personal history of nicotine dependence; Z87.442 Personal history of urinary calculi; Z86.19 Personal history of other infectious and parasitic diseases; Z79.891 Long term (current) use of opiate analgesic
CPT/HCPCS: 52352; 52332; 36415; 74176; 74420; 80048; 80053; 81001; 81025; 82365; 85025; 85027; 87040; 87086; 87088; 87637; 88300; 96361; 96365; 96366; 96367; 96375; 96376; 99285; A9270; C1769; C2617; G0378; J0131; J0696; J1100; J1170; J2250; J2405; J2704; J3010; J7030; J7120

== ENCOUNTER 2023-05-19 05:02 | Emergency (ER) | payer OTHER, SELFPAY ==
--- NOTE | ~2023-05-19 | CT_ITS ---
Non-contrast CT scan of the Abdomen and Pelvis Clinical indication: Right flank pain Technique: 2.5 mm axial scans were obtained through the abdomen and pelvis without intravenous or or al contrast. Dose reduction technique was used on this scan by utilizing automated exposure control a nd iterative reconstruction technique. The dose-length product (DLP) was 549.72 mGy-cm. COMPARISON: 06/04/2022 Findings: Images through the lung bases reveal no abnormalities. There is a 6 mm round stone at the right UVJ. There are several much smaller stones at the distal rig ht ureter measuring up to maximum of 3 mm. There is mild to moderate right hydroureteronephrosis. The re are additional nonobstructing right renal stones measuring up to 1 cm. There is a single 2 mm nono bstructing left renal stone. No left ureteral stone or left hydronephrosis. The liver, spleen, pancreas, gallbladder, and adrenals appear normal. There is no aortic aneurysm. There is no evidence of bowel obstruction. Images through the pelvis were performed. There is no evidence of ascites or lymphadenopathy. Urinary bladder otherwise unremarkable. No adnexal mass seen. Impression: 6 mm right UVJ stone with several much smaller stones at the distal right ureter. Associated mild to moderate right hydroureteronephrosis. Additional nonobstructing bilateral nephrolithiasis, right worse than left, as detailed above. Reviewed, dictated and finalized at [facility]. [employer] Impression: 6 mm right UVJ stone with several much smaller stones at the distal right urete r. Associated mild to moderate right hydroureteronephrosis. Additional nonobstructing bilateral nephrolithiasis, right worse than left, as detailed above.
[2023-05-19 05:03] VITALS: BP 137/91; PULSE 93; RESP 15; TEMP 36.8; O2SAT 100
[2023-05-19 06:27] LABS: Basophils Absolute Auto 0.1 K/mm3 (0.0-0.1); Basophils Percent Auto 0.5 % (0.2-1.2); Eosinophils Absolute Auto 1.1 K/mm3 (0-0.3); Eosinophils Percent Auto 6.6 % (0-4.4); Hematocrit 44.5 % (37.0-47.0); Immature Granulocyte Absolute 0.05 K/mm3 (0.00-0.031); Immature Granulocyte Percent A 0.3 % (0-0.5); Lymphocytes Absolute Auto 5.01 K/mm3 (0.9-3.2); Lymphocytes Percent Auto 31.1 % (18.3-44.2); Mean Corpuscular HGB Conc 31.5 g/dl (32-36); Mean Corpuscular Volume 85.9 fl (80-100); Mean Platelet Volume 10.7 fl (7.4-10.4); Monocytes Absolute Auto 1.6 K/mm3 (0.1-0.6); Monocytes Percent Auto 9.9 % (2.6-8.5); Neutrophils Absolute Auto 8.3 K/mm3 (1.3-6.7); Neutrophils Percent Auto 51.6 % (45.5-73.1); Platelet Count Result 571 k/mm3 (150-375); Red Blood Count 5.18 M/mm3 (4.2-5.4); Red Cell Distribution Width 18.2 % (11.5-14.5); White Blood Count 16.1 K/mm3 (4.5-10.0)
[2023-05-19 06:40] LABS: Alanine Aminotransferase 20 U/L (6-35); Albumin Level 3.8 g/dL (3.5-5.1); Alkaline Phosphatase 98 U/L (38-126); Anion Gap 8 mmol/L (8-16); Aspartate Amino Transferase 26 U/L (14-36); Bilirubin,Total 0.4 mg/dL (0.2-1.3); Blood Urea Nitrogen 11 mg/dL (7-17); Calcium 9.1 mg/dL (8.4-10.2); Carbon Dioxide 27 mmol/L (22-30); Chloride 104 mmol/L (98-107); Estimated CRCL calculation 117 ml/min; Estimated Glomerular Filt Rate > 60; Glucose 105 mg/dL (65-110); Potassium 3.6 mmol/L (3.4-5.0); Sodium 139 mmol/L (137-145)
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
[2023-05-19 07:31] LABS: Appearance Urine Clear (Clear); Bacteria Urine None Seen /hpf; Bilirubin Urine Negative (Negative); Blood Urine 3+ (Negative); Color Urine Yellow (Yellow); Glucose Urine UA Negative (Negative); Ketones Urine Negative (Negative); Leukocyte Esterase Ur Trace LEU/UL (Negative); Nitrate Urine Negative (Negative); Non Pathogenic Casts 0-2; Protein Urine Trace mg/dL (Negative); RBC Urine 51-100 /hpf (0-2); Squamous Epithelial Cell Urine None seen /hpf (Few); Urobilinogen Urine 0.2 mg/dL (<2.0); WBC Urine 0-5 /hpf
[2023-05-19] MEDS: ONDANSETRON INJ 4 MG/2 ML VIAL IV PUSH (07:33)
[2023-05-19] MEDS: HYDROmorphone HCL INJ (*CRX) 1 MG/ML SYR 0.5 MG IV PUSH (07:34)
[2023-05-19] MEDS: SODIUM CHLORIDE 0.9% IV 1,000 ML 999 ML IV CONT (07:34)
[2023-05-19 07:46] VITALS: BP 127/77; PULSE 90; O2SAT 97
[2023-05-19 07:50] LABS: Add Urine Microscopic? YES
[2023-05-19] MEDS: TAMSULOSIN HCL 0.4 MG CAPSULE PO (09:17)
[2023-05-19] MEDS: HYDROcodone/acetaminophen (*CRX) 5-325 MG TABLET 1 TAB PO (09:17)
== END 2023-05-19 09:26 | disposition home or self-care (01) ==
PROVIDERS: Emergency Medicine; Emergency Provider Emergency Medicine
DX: N13.2 Hydronephrosis with renal and ureteral calculous obstruction (principal); Z87.442 Personal history of urinary calculi; Z87.891 Personal history of nicotine dependence; Z90.81 Acquired absence of spleen; Z86.19 Personal history of other infectious and parasitic diseases
CPT/HCPCS: 36415; 74176; 80053; 81001; 81025; 85025; 96361; 96374; 96375; 99284; A9270; J1170; J2405; J7030

== ENCOUNTER 2023-06-09 14:54 | Emergency (ER) | payer OTHER, SELFPAY ==
[2023-06-09 15:11] VITALS: BP 139/78; PULSE 114; RESP 16; TEMP 37.4; O2SAT 97
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
== END 2023-06-09 16:05 | disposition home or self-care (01) ==
PROVIDERS: Emergency Provider Registered Nurse
DX: B34.9 Viral infection, unspecified (principal); Z20.822 Contact with and (suspected) exposure to COVID-19; Z87.891 Personal history of nicotine dependence
CPT/HCPCS: 87081; 87426; 87804; 87880; 99213; G0463

== ENCOUNTER 2023-07-23 18:15 | Emergency (ER) | payer OTHER, SELFPAY | END 2023-07-23 18:32 | disposition left against medical advice (07) | PROVIDERS: Emergency Provider Internal Medicine Hematology & Oncology | DX: Z53.21 Procedure and treatment not carried out due to patient leaving prior to being seen by health care provider (principal) | CPT/HCPCS: 99199 ==

== ENCOUNTER 2023-08-04 10:00 | Emergency (ER) | payer OTHER, SELFPAY ==
--- NOTE | ~2023-08-04 | XR_ITS ---
EXAMINATION: XR knee LT 3V DATE: 08/04/2023 11:15 INDICATION: Left knee pain post fall. TECHNIQUE: Anteroposterior, oblique and crosstable lateral views of the left knee were obtained COMPARISON: None. FINDINGS: Alignment is normal. No fracture. Joint spaces appear normal on nonweightbearing imaging. No osteoph ytosis. No joint effusion/layering lipohemarthrosis. Soft tissues are unremarkable. IMPRESSION: 1. Negative left knee radiographs. Reviewed, dictated and finalized at location A.
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
[2023-08-04 10:20] VITALS: BP 147/95; PULSE 94; RESP 15; TEMP 36.5; O2SAT 99
[2023-08-04 10:26] VITALS: O2SAT 99
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
[2023-08-04] MEDS: dexAMETHasone SOD PHOS INJ 10 MG/ML 1 ML VIAL IM (10:45)
[2023-08-04 11:06] LABS: Strep Group A RT-PCR DETECTED (Negative)
[2023-08-04 11:22] LABS: Influenza A QL RT-PCR Negative (Negative); Influenza B QL RT-PCR Negative (Negative); RSV RNA, RT-PCR Negative (Negative); SARS-CoV-2 RNA PCR Negative (Negative)
[2023-08-04] MEDS: AMOXICILLIN/CLAVULANATE K 875-125 MG TAB 1 TABLET PO (11:22)
[2023-08-04 11:45] VITALS: BP 133/76; PULSE 78; RESP 16; O2SAT 99
== END 2023-08-04 11:46 | disposition home or self-care (01) ==
PROVIDERS: Emergency Provider Emergency Medicine; PCP Family Medicine
DX: J02.0 Streptococcal pharyngitis (principal); S89.92XA Unspecified injury of left lower leg, initial encounter; Z20.822 Contact with and (suspected) exposure to COVID-19; D72.829 Elevated white blood cell count, unspecified; Z87.442 Personal history of urinary calculi; Z87.891 Personal history of nicotine dependence; Z86.19 Personal history of other infectious and parasitic diseases; Z90.81 Acquired absence of spleen; W19.XXXA Unspecified fall, initial encounter
CPT/HCPCS: 71045; 73562; 87637; 87651; 96372; 99284; A9270; J1100

== ENCOUNTER 2023-12-01 11:08 | Emergency (ER) | payer OTHER, SELFPAY ==
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
[2023-12-01 11:15] VITALS: BP 129/79; PULSE 80; RESP 16; TEMP 36.7; O2SAT 98
== END 2023-12-01 11:24 | disposition home or self-care (01) ==
PROVIDERS: Emergency Provider Nurse Practitioner Family; PCP Family Medicine
DX: H66.91 Otitis media, unspecified, right ear (principal); J40 Bronchitis, not specified as acute or chronic; Z87.891 Personal history of nicotine dependence; Q89.01 Asplenia (congenital)
CPT/HCPCS: 99213; G0463

== ENCOUNTER 2025-01-30 12:09 | Outpatient (CLI) | payer BC, SELFPAY ==
--- NOTE | ~2025-01-30 | XR_ITS ---
XR lumbar spine 2-3V INDICATION: Hip pain COMPARISON: None. TECHNIQUE: AP and lateral views of the lumbar spine as well as coned-down views of L5-S1 were obtained. FINDINGS: There is no compression fracture or malalignment. Mild degenerative changes with disc space narrowing at L4-L5 and L5-S1. No soft tissue abnormalities are identified. IMPRESSION: Normal lumbar spine. Reviewed, dictated and finalized at location S. IMPRESSION: Normal lumbar spine.
--- NOTE | ~2025-01-30 | XR_ITS ---
Examination: XR knee RT 3V, XR hip RT min 2V Clinical History: Pain in rt hip, rt knee and low back Comparison: None Technique: 2 views right hip, 3 views right knee Findings/impression: Right hip: 1. No fracture or dislocation right hip. 2. No significant degenerative changes Right knee: 1. No fracture, dislocation, or effusion right knee. 2. No significant degenerative changes. 3. Minimal, if any, narrowing of lateral patellofemoral space. Reviewed, dictated and finalized at location R.
--- OUTSIDE RECORDS SUMMARY | 2025-01-30 13:55 | XMS_ITS | Encounter Summary ---
Author Organization [facility] Address [facility] [place] [address] Care Team Providers Care Hat Brusher Machine Name Role Phone Maria G Márquez PROFESSIONAL ARCHITECT Primary Care Provider [phone] Nasir Prescott MD Primary Care Provider [phone] Thu Rodrigues NP Primary Care Provider [phone] Encounter Details Date Type Department Care Team ([facility] st Contact Info) Description 02/22/2018 Abstract [facility] [address] [place] [address] Maria G Márquez, SIVAKUMAR [address] [address] Social History Tobacco Use Types Packs/Day Years Used Date Smoking Tobacco: Never Assessed Comments Unknown Sex and Gender Information Value Date Recorded Sex Assigned at Not on file Legal Sex Female 7:15 PM CDT Gender Identity Not on file Sexual Orientation Not on file documented as of this encounter Plan of Treatment Not on file documented as of this encounter Visit Diagnoses Not on filedocumented in this encounter Administered Medications Administered Medications Medication Order MAR Action Action Date Dose Rate Site Tuberculin Given 01/18/2018 00:00 CDT 0.1 mL Tuberculin Given 01/11/2018 00:00 CDT 0.1 documented in this encounter Care Teams Hat Brusher Machine Relationship Specialty Start Date End Date Maria G Márquez NP PCP - General NURSE PRACTITIONER 02/23/18 08/14/19 Nasir Prescott MD PCP - General INTERNAL MEDICINE 08/15/19 10/14/21 Thu Rodrigues NP [address] [place] [address] PCP - General NURSE PRACTITIONER 10/15/21 09/26/24 documented as of this encounter
--- OUTSIDE RECORDS SUMMARY | 2025-01-30 13:55 | XMS_ITS | Clinical Summary ---
Author Organization [facility] Address [address] [place] [address] Care Team Providers Care Plastic Sheeting Cutter Name Role Phone Unavailable Primary Care Provider Unavailabl e Source Comments [facility],non-owned Affiliates and Associated Physician Practices is amultiple site organization consisting of ambulatory clinics and hospital sitesin [place], [place], [place] and [place]. This disclosure is being madepursuant to the Care Everywhere program and may not contain all information available regarding this patient. Last updated 18.[facility] [employer] Social History Tobacco Use Types Packs/Day Years Used Date Smoking Tobacco: Never Assessed Comments Unknown Sex and Gender Information Value Date Recorded Sex Assigned at Not on file Legal Sex Female 6:35 PM BUSINESS DEVELOPMENT SPECIALIST Gender Identity Not on file Sexual Orientation Not on file Plan of Treatment Health Maintenance Due Date Last Done Comments HIV SCREENING 07/03/2002 HEPATITIS C SCREENING 06/29/2005 DTAP/TDAP/TD VACCINES (1 - Tdap) 07/03/2006 HEPATITIS B VACCINE (1 of 3 - 19+ 3-dose series) 07/03/2006 HPV VACCINE (1 - 3-dose SCDM series) 07/03/2014 DEPRESSION SCREENING 04/19/2024 COVID-19 VACCINE (1 - 2023-2 5 season) 2024 INFLUENZA VACCINE (#1) 2024 ZOSTER VACCINE (1 of 2) 07/03/2037 HIB VACCINE Aged Out No longer eligi ble based on patient's age to complete this topic MENINGOCOCCAL (Group B) VACC INE SHARED DECISION-MAKING Aged Out No longer eligibl e based on patient's age to complete this topic MENINGOCOCCAL GROUPS A/C/Y/W VACCINE Aged Out No longer eligible b ased on patient's age to complete this topic PNEUMOCOCCAL VACCINE Aged Out No long er eligible based on patient's age to complete this topic Insurance MEDICAID - OUT OF STATE
--- OUTSIDE RECORDS SUMMARY | 2025-01-30 13:55 | XMS_ITS | Encounter Summary ---
Author Organization [facility] Address [facility] [place] [address] Care Team Providers Care Population Geneticist Name Role Phone Maria G Márquez PRECIPITATION EQUIPMENT TENDER Primary Care Provider [phone] Nasir Prescott MD Primary Care Provider [phone] Thu Rodrigues NP Primary Care Provider [phone] Encounter Details Date Type Department Care Team (Late st Contact Info) Description 01/11/2018 Abstract [facility] [address] [place] [address] Yamini Coleman MD Social History Tobacco Use Types Packs/Day Years [...] Diagnoses Not on filedocumented in this encounter Care Teams Population Geneticist Relationship Specialty Start Date End Date Maria G Márquez NP PCP - General NURSE PRACTITIONER 02/23/18 08/14/19 Nasir Prescott MD PCP - General INTERNAL MEDICINE 08/15/19 10/14/21 Thu Rodrigues NP [address] [place] [address] PCP - General NURSE PRACTITIONER 10/15/21 09/26/24 documented as of this encounter
--- OUTSIDE RECORDS SUMMARY | 2025-01-30 13:55 | XMS_ITS | Clinical Summary ---
Author Organization [facility] Address [address] [place] [id number] Care Team Providers Care Jig Operator Name Role Phone Unavailable Primary Care Provider Unavailabl e Allergies No known active allergies Medications metFORMIN 500 MG tablet Take 500 mg by mouth 2 (two) times daily with meals. One a day x one week Two daily x one week Three daily until sees OB Active vitamin 27-1 MG Tab tablet Take 1 tablet by mouth daily. Active TRAMADOL 50 MG tabletIndication s:Chronic midline low back pain, with sciatica presence unspecified TAKE 1 TABLET BY MOUTH EVERY 12 HOURS NEEDED 30 tablet 08/19/2018 Active OMEPRAZOLE 20 MG capsuleIndicatio ns:Gastroesophag eal reflux disease, esophagitis presence not specified TAKE 1 CAPSULE DAILY 90 capsule 4 12/18/2018 Active naproxen 500 MG tabletIndication s:Injury of right rotator cuff, initial encounter Take 1 tablet (500 mg total) by mouth 2 (two) times daily with meals. Take with food 30 tablet 08/15/2019 Active Active Problems Problem Noted Date Diagnosed Date Backache 01/28/2018 [facility] [place] 8 GERD (gastroesophageal reflux disease) 8 Immunizations Immunization Administration Dates Next Due Influenza (Generic) 02/18/2018 Tdap (Adacel) 02/23/2018 Family History Medical History Relation Comments Diabetes Father Relation Status Comments Father Alive Mother Alive Social History Tobacco Use Types Packs/Day Years Used Date Smoking Tobacco: Former Smokeless Tobacco: Never Alcohol Use Standard Drinks/Week Comments Yes 0 (1 standard drink = 0.6 oz pur e alcohol) occasional Comments Unknown Sex and Gender Information Value Date Recorded Sex Assigned at Not on file Legal Sex Female 7:15 PM CDT Gender Identity Not on file Sexual Orientation Not on file Last Filed Vital Signs Vital Sign Reading Time Taken Comments Blood Pressure 100/64 08/15/2019 3:44 PM CDT Pulse 101 08/15/2019 3:44 PM CDT Temperature 36.9 C (98.4 F) 08/15/2019 3:44 PM CDT Respiratory Rate 16 08/15/2019 3:44 PM CDT Oxygen Saturation 98% 08/15/2019 3:44 PM CDT Inhaled Oxygen Concentration - - Weight 106.6 kg (235 lb) 08/03/2018 5:22 PM CDT Height 170.2 cm (5' 7) 08/15/2019 3:44 PM CDT Body Mass Index 36.81 08/03/2018 5:22 PM CDT Plan of Treatment Health Maintenance Due Date Last Done Comments Cervical Cancer Screening Pa p Smear (Age 30 to 64) Every 3 Years 1987 Hepatitis C 07/03/2005 Hepatitis B Vaccines (1 of 3 - 19+ 3-dose series) 07/03/2006 HPV Vaccines (1 - 3-dose SCD M series) 07/03/2014 Cervical Cancer Screening Pa p with HPV Testing (Age 30 to 64) Every 5 Years 07/03/2017 Cervical Cancer Screening wi th HPV 07/03/2017 Annual Physical 02/23/2019 02/23/2018 PHQ-2 (Physician Endeavor) 04/19/2024 COVID-19 Vaccine (2023-2 5 season) 2024 Influenza Adult (#1) 2025 02/18/2018, 03/09/2017 DTaP, Tdap and Td Vaccines ( 3 - Td or Tdap) 02/24/2028 02/23/2018, 03/09/2017 Meningococcal B Vaccine Aged Out No l onger eligible based on patient's age to complete this topic Meningococcal Vaccine Aged Out No dahlia natalie eligible based on patient's age to complete this topic Pneumococcal Vaccine: Pediatrics (0 to 5 Years) and At-Risk Patients (6 to 49 Years) Aged Out No longer eligible b ased on patient's age to complete this topic RSV Immunizations Under 20 Months Aged Out No longer eligible b ased on patient's age to complete this topic Insurance [employer] SHIELD Fiiiling SHIELD
--- OUTSIDE RECORDS SUMMARY | 2025-01-30 13:55 | XMS_ITS | Clinical Summary ---
Author Organization [facility] Address [address] [place] [address] Phone Care Team Providers Care Production Hardener Name Role Phone AtilioIvone Devi SOTO, ASSOCIATE THEATRE PROFESSOR Primary Care Provider [phone] Allergies No known active allergies Medications Vit-Rosa-Fe Fum-FA (Vinate M) 27-1 MG Tablet Take 1 Tablet by mouth. Active diphenhydrAMINE- APAP, sleep, (TYLENOL PM EXTRA STRENGTH PO) Take by mouth. Active meloxicam (MOBIC) 7.5 MG Tablet Take 1 Tablet by mouth daily. 90 Tablet 08/03/2024 Active Active Problems Problem Noted Date Diagnosed Date Chronic right shoulder pain 08/03/2024 Right hip pain 08/03/2024 Lymphadenopathy of right cervical region 025 Tobacco abuse History of splenectomy Hep C w/o coma, chronic Immunizations Immunization Administration Dates Next Due Hepatitis B Vaccine 05/17/2018,02/08/2018,2017 Influenza Vaccine 02/18/2018 Influenza Vaccine, Quadrivalent, PF 06/13/2020,1 04/20/2017,03/09/2017 Influenza Vaccine,unspecified Formulation 2009 Influenza, Injectable, Quadrivalent 02/07/2019 TDAP Vaccine 02/23/2018,03/09/2017 Tetanus Toxoid, Unspecified Formulation 04/19/19 12 Tuberculin Skin Test; Purifi ed Protein Derivative Solutiol 01/18/2018,01/11/2018 Family History Medical History Relation Name Comments High Cholesterol Father Hypertension Father Heart Attack Maternal Grandfather Breast Cancer Maternal Grandmother Migraines Mother Diabetes Paternal Grandfather Heart Attack Paternal Grandfather Heart Surgery Paternal Grandfather No Known Problems Paternal Grandmother No Known Problems Sister Relation Name Status Comments Father Alive Maternal Grandfather Maternal Grandmother Mother Alive Paternal Grandfather Paternal Grandmother Alive Sister Alive Social History Tobacco Use Types Packs/Day Years Used Date Smoking Tobacco: Former Cigarettes 0 05/06/2019 - 11/04/2019 Smokeless Tobacco: Never Tobacco Cessation:Counseling Given: No Alcohol Use Standard Drinks/Week Comments No 0 (1 standard drink = 0.6 oz pur e alcohol) [facility] Utilities Answer Date Recorded In the past 12 months has [employer] electric, gas, oil, or water company threatened to shut off services in your home? No 08/01/2024 Social Connection and Isolation Panel Answer Date Recorded In a typical week, how many times do you talk on the phone with family, friends, or neighbors? Once a week 08/02/19 How often do you get togethe r with friends or relatives? Once a week 08/01/2024 How often do you attend chur ch or mosque services? 1 to 4 times per year 08/01/2024 Do you belong to any clubs o r organizations such as mu-ism groups, unions, fraternal or athletic groups, or school groups? No 08/01/2024 How often do you attend meet ings of the clubs or organizations you belong to? Never 08/01/2024 Are you , , di vorced, , never , or living with a partner? 08/01/2024 AUDIT-C Answer Date Recorded Q1: How often do you have a drink containing alc ohol? Monthly or less 08/01/2024 Q2: How many drinks containi ng alcohol do you have on a typical day when you are drinking? 1 or 2 08/01/2024 Q3: How often do you have si x or more drinks on one occasion? Never 08/01/2024 Overall Financial Resource Strain (CARDIA) Answe r Date Recorded How hard is it for you to pa y for the very basics like food, housing, medical care, and heating? Not hard at all 08/01/2024 PHQ-2 Answer Date Recorded Total Score - Questions 1-9 0 07/18 [employer] [place] [employer] - Occupational Stress Questionnaire Answer Date Recorded Do you feel stress - tense, restless, nervous, or anxious, or unable to sleep at night because your mind is troubled all the time - these days? Not at all 08/01/2024 Exercise Vital Sign Answer Date Recorde d On average, how many days pe r week do you engage in moderate to strenuous exercise (like a brisk walk)? Patient declined On average, how many minutes do you engage in exercise at this level? Patient declined 08/01/2024 Hunger Vital Sign Answer Date Recorded Within the past 12 months, y ou worried that your food would run out before you got the money to buy more. Never true 08/02/19 25 Within the past 12 months, t he food you bought just didn't last and you didn't have money to get more. Never true 08/01/2024 PRAPARE - Transportation Answer Date Re corded In the past 12 months, has l ack of transportation kept you from medical appointments or from getting medications? No 07/18 In the past 12 months, has l ack of transportation kept you from meetings, work, or from getting things needed for daily living? No 08/01/2024 Housing Stability Vital Sign Answer Frandy e Recorded In the last 12 months, was t here a time when you were not able to pay the mortgage or rent on time? No 08/01/2024 In the past 12 months, how m any times have you moved where you were living? 0 08/01/2024 At any time in the past 12 m [facility], were you homeless or living in a alf (including now)? 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 Not on file Not on file Not on file Last Filed Vital Signs Vital Sign Reading Time Taken Comments Blood Pressure 110/80 08/03/2024 2:37 PM CDT Pulse 92 08/03/2024 2:37 PM CDT Temperature 37.1 C (98.8 F) 08/03/2024 2:37 PM CDT Respiratory Rate 20 08/03/2024 2:37 PM CDT Oxygen Saturation 98% 08/03/2024 2:37 PM CDT Inhaled Oxygen Concentration - - Weight 103 kg (227 lb) 08/03/2024 2:37 PM CDT Height 163.8 cm (5' 4.5) 08/03/2024 2:37 PM CDT Body Mass Index 38.36 08/03/2024 2:37 PM CDT Plan of Treatment Health Maintenance Due Date Last Done Comments Pneumococcal Immunization Combined (1 of 2 - PCV) 07/03/2006 Human Papillomavirus (HPV) Immunization (1 - 3-dose SCDM series) 07/03/2014 HPV/Cotest 07/03/2017 Cervical Cancer Screening (CCS) 09/05/2017 Pap Smear 09/05/2017 09/05/2014 Influenza Immunization (#1) 2024 022 08/2020, 02/07/2019, 02/18/2018, Additional history exists SARS-COV-2 Immunization ( season) 2024 Td Immunization Every 10 Years (Adults With 1 Tdap) 02/24/2028 02/23/2018, 03/09/2017 Respiratory Syncytial Virus (RSV) Immunization (Adult) (1 - 1-dose 75+ series) 07/03/2062 Hepatitis B Immunization Completed 019, 02/08/2018, 01/05/2018 Meningococcal Immunization (ACWY) Aged Out No longer eligible based on patient's age to complete this topic Rotavirus Immunization Aged Out No lo nger eligible based on patient's age to complete this topic Procedures Procedure Name Priority Date/Time Associated Diagnosis Comments HM PAP SMEAR Routine 09/05/2014 from Last 3 Months or Most Recently Relevant to Health Maintenance Results * HM PAP SMEAR (09/05/2014) Nicole MORRIS - LABORATORY Edited Re sult - Final from Last 3 Months or Most Recently Relevant to Health Maintenance Insurance [facility] Care Teams Production Hardener Relationship Specialty Start Date End Date Ivone Trimble, COMPOUND FILLER, ASSOCIATE THEATRE PROFESSOR [address] [place] [address] PCP - General Certified Nurse Practitioner 08/03/24
== END 2025-01-30 12:10 | disposition home or self-care (01) ==
PROVIDERS: PCP Internal Medicine; Visit Provider Internal Medicine
DX: M54.50 Low back pain, unspecified (principal); M25.551 Pain in right hip; M25.561 Pain in right knee
CPT/HCPCS: 72100; 73502; 73562

== ENCOUNTER 2025-02-11 16:40 | Observation (INO) | payer BC, SELFPAY ==
[2025-02-11] VITALS (7 sets, daily range): BP systolic 132–144; BP diastolic 79–96; PULSE 68–89; RESP 17–20; TEMP 36.4–37.1; O2SAT 98–100; BMI 38.3
--- NOTE | ~2025-02-11 | CT_ITS ---
EXAMINATION: CT abdomen pelvis wo lamar, 02/11/2025 17:50 CDT HISTORY: L flank LLQ pain, hx stones COMPARISON: No comparisons available. TECHNIQUE: CT scan of the abdomen and pelvis was performed without IV contrast. One or more of the following dose reduction techniques were used: automated exposure control, adjustment of the mA and/or kV according to patient size, use of iterative reconstruction technique. Unless otherwise stated, incidental findings do not require dedicated follow up imaging FINDINGS: CT abdomen: LUNG BASES: The lung bases are clear. The visualized portions of the heart and pericardium are unremarkable. LIVER: Moderate hepatic steatosis. Ill-defined areas of calcification in the left lobe liver etiology unclear with sequelae of previous intervention noted in this area, clinical correlation is required. SPLEEN: Unremarkable, no splenomegaly. KIDNEYS: Right Kidney: Right kidney there are multiple renal calculi the largest mid pole 1.5 x 1.5 cm, no hydronephrosis or hydroureter. Left Kidney: Left kidney perinephric stranding noted with renal calculi the largest mid pole 3 mm with moderate left hydronephrosis and hydroureter with obstructing mid to distal ureteral calculus measuring 2 x 3 x 3 mm. ADRENAL GLANDS: Unremarkable. PANCREAS: No enlarged lymph nodes in the peripancreatic space possibly reactive the largest 1.5 x 1.5 cm, follow-up is suggested. GALLBLADDER/BILIARY: Unremarkable. No biliary dilatation. STOMACH AND ESOPHAGUS: Visualized stomach and esophagus within normal limits. BOWEL/MESENTERY: No colitis or diverticulitis. Appendix normal. Mesentery normal. No thickened or dilated loops of small bowel ADENOPATHY/RETROPERITONEUM: No lymphadenopathy. AORTA/VASCULATURE: Normal caliber aorta. FREE FLUID OR FREE AIR: Minimal free fluid.. CT pelvis: SOLID ORGANS/REPRODUCTIVE: Unremarkable. BLADDER: Within normal limits. OSSEOUS STRUCTURES: No acute osseous abnormality.No suspicious lesions. OVERLYING SOFT TISSUES: Postsurgical changes abdominal wall with a fat- containing epigastric hernia to the right of midline containing fat, defect in the abdominal wall 1 cm. There is a second inferior ventral hernia at this location containing part of the bowel which does not appear complicated.In the midline there is a third ventral hernia containing fat, defect in the abdominal wall 1 cm. There is diastases of the abdominal wall noted at the umbilicus. IMPRESSION: 1. Left-sided obstructive uropathy. 2. Incidental findings above Reviewed, dictated and finalized at location P.
--- NOTE | ~2025-02-11 | XR_ITS ---
EXAMINATION: XR retrograde pyelo w/stent LT DATE: 02/12/2025 10:46 INDICATION: Renal stone TECHNIQUE: 55 fluoroscopic images of the abdomen and pelvis were obtained during procedure performed by Dr. Vu. Radiologist was not present for the imaging or procedure. The amount of fluoroscopy time used during this procedure was 0.4 minutes. Total DAP was 0.643 mGym^2. COMPARISON: CT dated 02/11/2025 FINDINGS: Rewriter images demonstrate stones in the right kidney. Stone seen in the distal left ureter seen on prior CT is unable be identified on the email operations manager images. Retrograde contrast injection into the left ureter demonstrates mild left hydronephrosis. Final images demonstrate placement of a left intraureteral stent with loops formed in the left renal pelvis and in the bladder. IMPRESSION: 1. Retrograde pyelogram demonstrating mild left hydroureteronephrosis with placement of a left intraureteral stent which is in expected position. 2. Obstructing distal left ureteral stone seen on prior CT is unable be identified. It is unclear whether the stone has passed, been extracted or is too small to visualize by fluoroscopy. See procedure note for further detail. Reviewed, dictated and finalized at location A. IMPRESSION: 1. Retrograde pyelogram demonstrating mild left hydroureteronephrosis with plac ement of a left intraureteral stent which is in expected position. 2. Obstructing distal left ureteral stone seen on prior CT is unable be identif ied. It is unclear whether the stone has passed, been extracted or is too small to visualize by fluoroscopy. See procedure note for further detail.
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
[2025-02-11 17:05] LABS: BEDSIDEPREGUCG Negative (Negative)
[2025-02-11 17:23] LABS: Hematocrit 44.4 % (37.0-47.0); Hemoglobin 14.4 g/dL (12.0-15.0); Immature Granulocyte Percent A 0.5 % (0-0.5); Lymphocytes Absolute Auto 2.70 K/mm3 (0.9-3.2); Mean Corpuscular HGB Conc 32.4 g/dl (32-36); Mean Corpuscular Hemoglobin 27.3 pg (26-34); Mean Corpuscular Volume 84.1 fl (80-100); Nucleated Red Blood Cells Absolute Auto 0.000 K/mm3 (0.0-0.012); Nucleated Red Blood Cells Perc 0.0 % (0.0-0.2); Platelet Count Result 541 k/mm3 (150-375); Red Blood Count 5.28 M/mm3 (4.2-5.4); White Blood Count 26.4 K/mm3 (4.5-10.0)
--- OUTSIDE RECORDS SUMMARY | 2025-02-11 17:25 | XMS_ITS | Clinical Summary ---
Author Organization [facility] Address [address] [place] [id number] Care Team Providers Care Manager Of Sustainability Name Role Phone Unavailable Primary Care Provider [...] Noted Date Diagnosed Date Backache 01/28/2018 Other group home (current) drug therapy 8 GERD (gastroesophageal reflux [...] 07/03/2017 Annual Physical 02/23/2019 02/23/2018 PHQ-2 (Physician [place]) 04/19/2024 COVID-19 Vaccine ( - 2024-2 6 season) 2024 Influenza Adult (#1) 2025 02/18/2018, 03/09/2017 DTaP, Tdap and Td Vaccines ( 3 - Td or Tdap) 02/24/2028 02/23/2018, 03/09/2017 Hepatitis A Vaccines Aged Out No long er eligible based on patient's age to complete this topic Meningococcal B Vaccine Aged Out No l [...] patient's age to complete this topic Insurance [employer] [facility] [employer] [facility]
--- OUTSIDE RECORDS SUMMARY | 2025-02-11 17:25 | XMS_ITS | Clinical Summary ---
Author Organization [facility] Address [address] [place] [address] Care Team Providers Care Vp Research Name Role Phone Unavailable Primary Care Provider Unavailabl e Source Comments [facility],non-owned Affiliates and Associated Physician Practices is amultiple site organization consisting of ambulatory clinics and hospital sitesin [place], [place], [place] and [place]. This disclosure is being madepursuant to the Care Everywhere program and may not contain all information available regarding this patient. 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
--- OUTSIDE RECORDS SUMMARY | 2025-02-11 17:25 | XMS_ITS | Encounter Summary ---
Author Organization [facility] Address [facility] [address] [place] [address] Care Team Providers Care Account Processor Name Role Phone Maria G Márquez WEATHERSTRIP MACHINE OPERATOR Primary Care Provider [phone] Nasir Prescott MD Primary Care Provider [phone] Thu Rodrigues NP Primary Care Provider [phone] Encounter Details Date Type Department Care Team ([facility] st Contact Info) Description 02/22/2018 Abstract [facility] Medical Group MultiSpecialty [facility] [address] [place] [address] Maria G Márquez, SIVAKUMAR [address] [address] Social History Tobacco Use Types Packs/Day Years [...] 0.1 documented in this encounter Care Teams Account Processor Relationship Specialty Start Date End Date Maria G Márquez NP PCP - General NURSE PRACTITIONER 02/23/18 08/14/19 Nasir Prescott MD PCP - General INTERNAL MEDICINE 08/15/19 10/14/21 Thu Rodrigues NP [address] [place] [address] PCP - General NURSE PRACTITIONER 10/15/21 09/26/24 documented as of this encounter
--- OUTSIDE RECORDS SUMMARY | 2025-02-11 17:25 | XMS_ITS | Clinical Summary ---
Author Organization [facility] Address [address] [place] [address] Phone Care Team Providers Care Lumber Kiln Operator Name Role Phone AtilioIvone Devi SOTO, SHEET METAL PATTERN CUTTER Primary Care Provider [phone] Allergies No known active allergies Medications Vit-Rosa-Fe [...] drink = 0.6 oz pur e alcohol) [facility] Utilities Answer Date Recorded In the past 12 months has [employer] electric, gas, oil, or water company threatened [...] often do you attend chur ch or mormonism services? 1 to 4 times per year 08/01/2024 Do you belong to any clubs o r organizations such as shinto groups, unions, fraternal or athletic groups, or [...] Total Score - Questions 1-9 0 07/18 Citizen Of [place] Dingess of Occupat ional Health - Occupational Stress [...] any time in the past 12 m [facility], were you homeless or living in a prison (including now)? 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
[2025-02-11 17:27] LABS: Add Urine Microscopic? YES; Appearance Urine Clear (Clear); Glucose Urine UA Negative (Negative); Leukocyte Esterase Ur 2+ LEU/UL (Negative); Nitrate Urine Negative (Negative); Non Pathogenic Casts 0-2; Specific Grav Ur 1.016 (1.001-1.035)
[2025-02-11 17:32] LABS: Alanine Aminotransferase 30 U/L (6-35); Albumin Level 4.2 g/dL (3.5-5.1); Alkaline Phosphatase 106 U/L (38-126); Anion Gap 9 mmol/L (4-12); Aspartate Amino Transferase 31 U/L (14-36); Bilirubin,Total 0.4 mg/dL (0.2-1.3); Blood Urea Nitrogen 9 mg/dL (7-17); Calcium 8.9 mg/dL (8.4-10.2); Carbon Dioxide 23 mmol/L (22-30); Chloride 105 mmol/L (98-107); Estimated CRCL calculation 100 ml/min; Estimated Glomerular Filt Rate > 60; Glucose 110 mg/dL (65-110); Lipase 48 U/L (23-300); Potassium 3.7 mmol/L (3.4-5.0); Sodium 137 mmol/L (137-145); Total Protein 7.8 g/dL (6.3-8.2)
[2025-02-11] MEDS: SODIUM CHLORIDE 0.9% IV 1,000 ML 999 ML IV CONT (18:08)
[2025-02-11] MEDS: ONDANSETRON INJ 4 MG/2 ML VIAL IV PUSH (18:08)
[2025-02-11] MEDS: MORPHINE SULFATE (*CRX) 4 MG/ML INJ IV PUSH ×2 (18:09→20:53)
[2025-02-11] MEDS: cefTRIAXone 1 GM in SODIUM CHLORIDE 0.9% IV 50 ML 100 ML IVPB (19:48)
[2025-02-11] MEDS: TAMSULOSIN HCL 0.4 MG CAPSULE PO (19:49)
[2025-02-11] MEDS: SODIUM CHLORIDE 0.9% IV 1,000 ML 100 ML IV CONT (22:00)
--- NOTE | 2025-02-11 23:09 | ADMGEN ---
This patient, Claudia Ackerman, was admitted to [facility] Surg Room 330-02. Patient/family oriented to hospital policies and general routines including ID bracelet, bed and alarms, visiting hours, pain management, procedures, bathroom and other care routines, personal items, smoking policy, room service/diet, and visiting hours. Information on how to activate the Rapid Response Team has been discussed. Patient/Family are encouraged to report perceived risks to care and to ask questions if they do not understand what they are told or what they should do.
[2025-02-12] VITALS (15 sets, daily range): BP systolic 80–139; BP diastolic 44–85; PULSE 65–97; RESP 16–20; TEMP 36.2–37.1; O2SAT 94–100
--- NOTE | 2025-02-12 00:18 | PM.EVENT ---
Event Note Event Note Event Note: 02/11/2025 at 23:30 I went to evaluate the patient and attempt in H&P. When I entered the patient's room she was on her cell phone with her . I a apologized for interrupting her conversation and introduced myself. The patient immediately told me that she did not want to be evaluated by me are cared for by me because the last time she was in the hospital in 2022 I ?messed up her medications and put her on medications that the nursing staff had never heard of?. (On later review of the patient's chart I had placed her on Nucynta the last time to help with pain control considering she had a history of prior opiate addiction and I did not feel comfortable increasing the patient's Dilaudid dosing.) I apologize for any misunderstanding when I care for the patient in the past. I did inform her that I was the only physician on at night. And that any patient care needs or issues that developed during the night would not be addressed since she does not want my services. Subsequently I will defer the patient care to the daytime hospitalist service.
[2025-02-12] MEDS: MORPHINE SULFATE (*CRX) 4 MG/ML INJ IV PUSH ×4 (00:32→23:20)
--- NOTE | 2025-02-12 08:25 | PC.NURSE ---
Patient taken to surgery dept by wheelchair.
--- NOTE | 2025-02-12 09:16 | SUR.PREOP ---
Pt had 2 rings on found in preop. pt took them off, I put them in a blue cup and took them back upstairs to her room. Her RN jesús, put them in pts purse.
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
[2025-02-12] MEDS: fentaNYL CITRATE INJ (*CRX) 100 MCG/2 ML VIAL 50 MCG IV PUSH (09:30)
[2025-02-12] MEDS: LACTATED RINGERS 1,000 ML 30 ML IV CONT ×2 (09:30→11:05)
--- NOTE | 2025-02-12 09:53 | WPDHPUPDATE1 ---
History and Physical Update Update Date/Time: 02/12/25 09:53 History and Physical has been reviewed, including an updated exam of the patient. There are NO changes in the patient's condition. Risks, benefits, and alternatives have been discussed and questions answered. Patient agrees to proceed with procedure.
[2025-02-12] MEDS: LIDOCAINE 2% GEL UROJET 10 ML PKG MUCOUS MEM (10:34)
--- NOTE | 2025-02-12 10:46 | W.PM.PROC2 ---
Procedure Note - Detailed Date of Procedure 02/12/25 Pre-op Diagnosis L ureteral stone, Leukocytosis, Abnormal UA Post-op Diagnosis Same Procedure Performed Cystoscopy left retrograde pyelogram, left ureteroscopy, basket stone extraction, stent placement Surgeon Chavez Vu MD Anesthesia General and Local (Lidocaine jelly) Indications She has a left distal ureteral stone and elevated white count. She presents for the above. Understands risks of bleeding, infection, damage to urinary tract, inability remove the stone. Agrees to proceed Findings Uncomplicated stone extraction Description of Procedure She was correctly identified. Informed consent obtained. She is from the operating room. She was given general anesthesia. Placed in dorsal lithotomy position. She was prepped and draped sterile fashion. She was already on appropriate preop antibiotics. Time-out performed. Cystoscopy revealed a normal-appearing bladder. No redness is or abnormalities. No tumors or stones. I did a gentle retrograde pyelogram on the left showing no extravasation. Hydronephrosis was present. I placed a guidewire to the kidney. I dilated the ureter the 810 dilator. I performed ureteroscopy. The stone was encountered. It was ensnared in a basket intact and sent for pathologic analysis. I then placed a 4.8 variable length stent. Proximal coil in the upper pole kidney. Distal coil visually seen in the bladder. Bladder was drained. She was awakened transferred to PACU in stable condition. Implants Ureteral stent Estimated Blood Loss 0 Drains Yes (Ureteral stent) Packing No (Stone) Pathology Yes (Stone) Complications No immediate complications Condition Stable Disposition PACU
--- NOTE | 2025-02-12 11:19 | S_PTH ---
PATIENT: Claudia Ackerman LOC: [id number] U#:[id number] AGE/SX: 39/F ROOM: 330 RE02/11/[address]: Sarita Ibrahim MD : 1985 BED: 02 DIS: 02/13/2025 SPEC #: [id number] RECD: 02/12/25 11:51 STATUS: BAMBI REQ #: [id number] LYNN: 02/12/25 11:[address]: Chavez Vu DEPT: [facility] Surgical RECD BY: Yudi Fuentes ENTERED: 02/12/25 11:51 SP TYPE: Surgical OTHR DR: Alonso Yousif, DO Uli Nolasco MD Tissues: A - Stone Procedures: Gross Exam Level 1 Crystalline Analysis
[2025-02-12] MEDS: HYDROcodone/acetaminophen (*CRX) 5-325 MG TABLET 1 TAB PO ×2 (12:22→16:16)
[2025-02-12] MEDS: SODIUM CHLORIDE 0.9% IV 1,000 ML 100 ML IV CONT ×2 (12:22→23:19)
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
[2025-02-12] MEDS: cefTRIAXone 1 GM in SODIUM CHLORIDE 0.9% IV 50 ML 100 ML IVPB (17:47)
[2025-02-13 01:40] VITALS: BP 110/60; PULSE 89; RESP 14; TEMP 36.4; O2SAT 98
[2025-02-13] MEDS: HYDROcodone/acetaminophen (*CRX) 5-325 MG TABLET 1 TAB PO ×3 (02:05→10:00)
[2025-02-13 05:40] VITALS: BP 105/50; PULSE 81; RESP 16; TEMP 36.3; O2SAT 99
[2025-02-13 05:47] LABS: Hematocrit 38.8 % (37.0-47.0); Hemoglobin 12.3 g/dL (12.0-15.0); Mean Corpuscular HGB Conc 31.7 g/dl (32-36); Mean Corpuscular Hemoglobin 27.3 pg (26-34); Mean Corpuscular Volume 86.2 fl (80-100); Platelet Count Result 461 k/mm3 (150-375); Red Blood Count 4.50 M/mm3 (4.2-5.4); White Blood Count 16.0 K/mm3 (4.5-10.0)
[2025-02-13 06:08] LABS: Anion Gap 4 mmol/L (4-12); Blood Urea Nitrogen 5 mg/dL (7-17); Calcium 8.2 mg/dL (8.4-10.2); Carbon Dioxide 25 mmol/L (22-30); Chloride 108 mmol/L (98-107); Estimated CRCL calculation 119 ml/min; Estimated Glomerular Filt Rate > 60; Glucose 100 mg/dL (65-110); Magnesium 1.8 mg/dL (1.6-2.3); Potassium 3.5 mmol/L (3.4-5.0); Sodium 137 mmol/L (137-145)
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
[2025-02-13 09:40] VITALS: BP 121/74; PULSE 84; RESP 18; TEMP 36.3; O2SAT 98
[2025-02-13] MEDS: SODIUM CHLORIDE 0.9% IV 1,000 ML 100 ML IV CONT (09:53)
[2025-02-13] MEDS: cefTRIAXone 1 GM in SODIUM CHLORIDE 0.9% IV 50 ML 100 ML IVPB (09:56)
--- NOTE | 2025-02-13 11:35 | WPDUROPN2 ---
Progress Note: A&P Assessment and Plan (1) Calculus of left ureter: Code(s): N20.1 - Calculus of ureter Status: Acute Assessment and Plan: - S/p Left URS, ureteral stent placement with Dr. Vu 02/12/2025 - Symptomatically improved; WBCs back to baseline, creatinine stable at 0.6 - OK to discharge home from urology perspective (2) Hydronephrosis: Qualifiers: Hydronephrosis type: with renal calculous obstruction Qualified Code(s): N13.2 - Hydronephrosis with renal and ureteral calculous obstruction Code(s): N13.30 - Unspecified hydronephrosis Status: Acute Assessment and Plan: - In the setting of ureteral calculus now s/p stent - Will pursue repeat ADONIS following stent pull (3) Kidney stones: Code(s): N20.0 - Calculus of kidney Status: Acute Assessment and Plan: - Pt with significant stone burden in BL renal pelvis - Will refer to Dr. Jaime for further management (4) Ureteral stent present: Code(s): Z96.0 - Presence of urogenital implants Status: Acute Assessment and Plan: - Will plan for stent pull in 1-2 weeks - Discharge home on tamsulosin x 20 days and solifenacin x 20 days for ureteral stent symptoms; side effect profiles of each medicaiton reviewed with pt Subjective Subjective Date/Time Seen: 02/13/25 11:35 Interval history: NAEO; pt resting comfortably in bed. Symptoms significantly improved following stent placement. Does still report some mild flank pain. Exam Const: General: no acute distress and uncomfortable Eyes: General: appearance normal, both eyes and all related structures Resp: Effort & Inspection: normal respiratory effort : Bimanual exam- vagina & uterus: Cervical tenderness present Neuro: Speech: normal speech Extrem: General: normal to inspection Psych: Speech and movement: Normal speech and movement present Objective Data Vital Signs Vital Signs: Vital Signs - 24 hr 02/12/25 11:40 02/12/25 11:50 02/12/25 11:55 Temperature 36.9 C 36.9 C Pulse Rate 67 75 75 Respiratory Rate 18 16 16 Blood Pressure 126/67 137/85 137/85 Pulse Oximetry 97 99 99 Oxygen Delivery Room Air 02/12/25 12:10 02/12/25 12:40 02/12/25 13:40 Temperature 36.9 C 36.9 C 37.1 C Pulse Rate 71 90 94 Respiratory Rate 16 18 18 Blood Pressure 139/83 121/71 115/74 Pulse Oximetry 98 99 97 Oxygen Delivery 02/12/25 17:40 02/12/25 20:00 02/12/25 21:40 Temperature 37.0 C 36.2 C L Pulse Rate 97 71 Respiratory Rate 18 17 Blood Pressure 115/78 125/63 Pulse Oximetry 94 100 Oxygen Delivery Room Air 02/13/25 01:40 02/13/25 05:40 02/13/25 09:40 Temperature 36.4 C L 36.3 C L 36.3 C L Pulse Rate 89 81 84 Respiratory Rate 14 16 18 Blood Pressure 110/60 105/50 L 121/74 Pulse Oximetry 98 99 98 Oxygen Delivery Intake/Output Intake/Output: Intake & Output 02/10/25 02/11/25 02/12/25 02/13/25 23:59 23:59 23:59 23:59 Intake Total 1050 3059.5 1518 Balance 1050 3059.5 1518 Meds/Results Medications: Active Medications Generic Name Dose Route Start Last Admin Trade Name Freq PRN Reason Stop Dose Admin Acetaminophen 650 mg 02/11/25 21:58 Acetaminophen 325 Mg Tablet PO Q4H PRN Mild Pain (1-3) or Fever Hydrocodone Bitart/Acetaminophen 1 tab 02/12/25 11:42 02/13/25 10:00 Hydrocodone/Acetaminophen (*Crx) 5-325 Mg Tablet PO 1 tab Q4H PRN Administration Pain Rated 4-6 Calcium Carbonate 200 mg 02/11/25 22:01 Calcium Carbonate (Tums) 500 Mg (200 Mg Elemental) PO Q6H PRN Indigestion Docusate Sodium 100 mg 02/11/25 22:01 Docusate Sodium 100 Mg Capsule PO Q12H PRN Constipation Ceftriaxone Sodium 1 gm/ 50 mls @ 100 mls/hr 02/12/25 18:00 02/12/25 18:17 Sodium Chloride IVPB Infused Q24H VERNA Infusion Sodium Chloride 1,000 mls @ 100 mls/hr 02/11/25 22:00 02/13/25 09:53 Normal Saline Iv IV CONT 100 mls/hr .Q10H VERNA Administration Morphine Sulfate 4 mg 02/11/25 21:58 02/12/25 23:20 Morphine Sulfate (*Crx) 4 Mg/Ml Inj IV PUSH 4 mg Q3H PRN Administration Pain Rated 7-10 Ondansetron HCl 4 mg 02/11/25 22:01 Ondansetron Inj 4 Mg/2 Ml Vial IV PUSH Q6H PRN Nausea And Vomiting Ondansetron HCl 4 mg 02/12/25 09:27 Ondansetron Inj 4 Mg/2 Ml Vial IV PUSH ONCE PRN Nausea Oxybutynin Chloride 5 mg 02/12/25 11:42 02/12/25 23:20 Oxybutynin Chloride 5 Mg Tablet PO 5 mg TID PRN Administration Abdominal Cramping Radiology Results: ITS Impressions Abdomen/Pelvis CT 02/11/25 18:10 IMPRESSION: 1. Left-sided obstructive uropathy. 2. Incidental findings above Retrograde Pyelogram 02/12/25 10:46 IMPRESSION: 1. Retrograde pyelogram demonstrating mild left hydroureteronephrosis with placement of a left intraureteral stent which is in expected position. 2. Obstructing distal left ureteral stone seen on prior CT is unable be identified. It is unclear whether the stone has passed, been extracted or is too small to visualize by fluoroscopy. See procedure note for further detail. Labs Labs: Laboratory Results - last 24 hr 02/13/25 05:37 WBC 16.0 H RBC 4.50 Hgb 12.3 Hct 38.8 MCV 86.2 MCH 27.3 MCHC 31.7 L RDW 15.9 H Plt Count 461 H MPV 9.9 Sodium 137 Potassium 3.5 Chloride 108 H Carbon Dioxide 25 Anion Gap 4 BUN 5 L Creatinine 0.64 L Estim Creat Clear Calc 119 Estimated GFR > 60 Glucose 100 Calcium 8.2 L Magnesium 1.8
== END 2025-02-13 13:25 | disposition home or self-care (01) ==
LOC: ANHED 22:22 → ANH3MEDSUR 02-12 07:30
PROVIDERS: Emergency Medicine; Urology; Admitting Provider Internal Medicine; Emergency Provider Physician Assistant; PCP Internal Medicine; Visit Provider Family Medicine
PROC: (CPT 52352; principal; 2025-02-12 10:30)
DX: N13.2 Hydronephrosis with renal and ureteral calculous obstruction (principal); K43.9 Ventral hernia without obstruction or gangrene; D75.839 Thrombocytosis, unspecified; D72.829 Elevated white blood cell count, unspecified; E66.9 Obesity, unspecified; Z68.38 Body mass index [BMI] 38.0-38.9, adult; F19.21 Other psychoactive substance dependence, in remission; Z87.442 Personal history of urinary calculi; Q89.01 Asplenia (congenital); Z86.19 Personal history of other infectious and parasitic diseases; Z87.891 Personal history of nicotine dependence; Z90.81 Acquired absence of spleen; Z83.3 Family history of diabetes mellitus; Z80.3 Family history of malignant neoplasm of breast; Z82.49 Family history of ischemic heart disease and other diseases of the circulatory system
CPT/HCPCS: 52352; 52332; 36415; 74176; 74420; 80048; 80053; 81001; 81025; 82365; 83690; 83735; 85025; 85027; 87040; 87086; 88300; 96361; 96365; 96375; 99285; A9270; C1769; C2617; G0378; J0696; J2003; J2250; J2270; J2371; J2405; J2704; J3010; J7030; J7120; Q9966

== ENCOUNTER 2025-02-19 13:14 | Emergency (ER) | payer BC, SELFPAY ==
[2025-02-19 13:26] VITALS: BP 122/71; PULSE 104; RESP 22; TEMP 36.3; O2SAT 99
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
[2025-02-19 13:47] LABS: EDSTREPNEGPOS1 Negative (Negative)
[2025-02-19 13:53] LABS: EDCOVIDSCREEN Negative (Negative)
[2025-02-19 13:54] LABS: EDINFLUASCREEN Negative (Negative); EDINFLUBSCREEN Negative (Negative)
== END 2025-02-19 13:55 | disposition home or self-care (01) ==
PROVIDERS: Emergency Provider Nurse Practitioner; PCP Internal Medicine
DX: J06.9 Acute upper respiratory infection, unspecified (principal); Z87.891 Personal history of nicotine dependence; Z20.822 Contact with and (suspected) exposure to COVID-19
CPT/HCPCS: 87081; 87426; 87804; 87880; 99213; G0463

== ENCOUNTER 2025-03-29 12:39 | Outpatient (CLI) | payer BC, SELFPAY ==
--- NOTE | ~2025-03-29 | XR_ITS ---
EXAMINATION: XR knee RT 3V DATE: 03/29/2025 13:09 INDICATION: Chronic knee pain TECHNIQUE: Right knee x-rays were obtained. COMPARISON: None. FINDINGS: No displaced fracture dislocation or aggressive bone lesion seen. No radiopaque foreign body seen. Mild osteoarthritic appearing degenerative changes developing in the patellofemoral joint and lateral joint space. IMPRESSION: 1. No acute or aggressive bony or soft tissue process seen. 2. For persisting or worsening knee pain refractory to conservative therapy, consider correlation with right knee MRI for optimal sensitivity. Reviewed, dictated and finalized at location A. ASSISTANT IMPRESSION: 1. No acute or aggressive bony or soft tissue process seen. 2. For persisting or worsening knee pain refractory to conservative therapy, co nsider correlation with right knee MRI for optimal sensitivity.
== END 2025-03-29 12:40 | disposition home or self-care (01) ==
PROVIDERS: PCP Internal Medicine; Visit Provider Internal Medicine
DX: M25.561 Pain in right knee (principal)
CPT/HCPCS: 73562